=== PATIENT | female | born 1980 | race African-American/Black ===

== ENCOUNTER 2020-02-15 13:34 | Outpatient (REF) | payer MEDICARE, MEDICAID, SELFPAY ==
--- NOTE | 2020-02-15 13:39 | US_ITS ---
EXAMINATION: US VENOUS ULTRASOUND WITH DOPPLER LOWER EXTREMITY, RIGHT CLINICAL INFORMATION: Right lower extremity pain. Assess for occult DVT. COMPARISON: Bilateral leg venous ultrasound with Doppler. 03/09/2016, right lower extremity venous ultrasound with Doppler 10/04/2013 TECHNIQUE: Ultrasound of the deep veins is performed from the hip to the calf with compression sonography and color and pulse Doppler assessment. Spectral analysis with color-flow imaging is performed. [employer] notes technically challenging study secondary to patient body habitus. FINDINGS: There is normal venous compression and respiratory variation and augmented flow. The visualized common femoral vein, superficial femoral vein, profunda femoral vein, popliteal vein, and the trifurcation region shows no evidence of deep venous thrombosis. No popliteal fossa cyst. US/US venous duplex LE RT IMPRESSION: No DVT demonstrated in the right lower extremity.
== END 2020-02-15 13:35 | disposition home or self-care (01) ==
LOC: HO.HMGCX 13:34
PROVIDERS: PCP Internal Medicine; Visit Provider Internal Medicine
DX: M79.604 Pain in right leg (principal)
CPT/HCPCS: 93971

== ENCOUNTER 2020-05-06 16:37 | Outpatient (REF) | payer MEDICARE, MEDICAID, SELFPAY | END 2020-05-06 16:38 | disposition home or self-care (01) | LOC: HO.LNP 16:37 | PROVIDERS: Visit Provider Hospitalist | DX: J40 Bronchitis, not specified as acute or chronic (principal); Z20.822 Contact with and (suspected) exposure to COVID-19 | CPT/HCPCS: U0003; U0005 ==

== ENCOUNTER 2020-11-11 15:11 | Outpatient (REF) | payer MEDICARE, MEDICAID, SELFPAY ==
[2020-11-11 16:21] LABS: MANUAL DIFF FLAG NO
[2020-11-11 16:31] LABS: Basophils Percent Auto 0.4 % (0-2); Eosinophils Absolute Auto 0.3 X10*3/uL (0.0-0.4); Eosinophils Percent Auto 2.3 % (0-4); Hematocrit 39.2 % (37-47); Hemoglobin 12.1 g/dl (12.0-16.0); Imm Gran Abs Auto 0.05 X10*3/uL (0.00-0.03); Imm Gran Pct Auto 0.5 % (0.0-0.4); Lymphocytes Absolute Auto 1.9 X10*3/uL (1.2-4.9); Lymphocytes Percent Auto 18.1 % (20-40); Mean Corpuscular HGB Conc 30.9 g/dl (31.0-35.0); Mean Corpuscular Hemoglobin 24.4 pg (27.0-33.0); Mean Platelet Volume 11.7 fL (9.4-12.3); Monocytes Absolute Auto 0.6 X10*3/uL (0.1-1.2); Monocytes Percent Auto 5.1 % (2-11); Neutrophils Absolute Auto 7.9 X10*3/uL (2.0-8.3); Neutrophils Percent Auto 73.6 % (45-73); Platelet Count 228 X10*3/uL (160-400); Red Blood Count 4.96 X10*6/uL (4.20-5.50); Red Cell Distribution Width 15.7 % (11.0-16.0); White Blood Count 10.7 X10*3/uL (4.8-10.8)
[2020-11-11 16:56] LABS: Alanine Aminotransferase 12 U/L (0-31); Albumin Level 3.9 g/dL (3.5-5.0); Alkaline Phosphatase 89 U/L (39-117); Anion Gap 16 (12-20); Aspartate Amino Transferase 11 U/L (5-31); Bilirubin Total 0.6 mg/dL (0.0-1.0); Blood Urea Nitrogen 13 mg/dL (9-16); Calcium 8.8 mg/dL (8.4-10.2); Carbon Dioxide 23 mmol/L (22-29); Chloride 104 mmol/L (96-108); Estimated Glomerular Filt Rate > 60; Glucose Random 105 mg/dL (60-115); Potassium 4.2 mmol/L (3.3-5.1); Sodium 139 mmol/L (135-145); Total Protein 6.8 g/dL (6.5-8.0)
[2020-11-11 17:17] LABS: TSH reflex Free T4 1.18 uIU/mL (0.32-4.0)
== END 2020-11-11 15:12 | disposition home or self-care (01) ==
LOC: HO.HMGCLDS 15:11
PROVIDERS: PCP Internal Medicine; Visit Provider Nurse Practitioner Family
DX: M79.89 Other specified soft tissue disorders (principal)
CPT/HCPCS: 36415; 80053; 84443; 85025

== ENCOUNTER 2020-11-16 13:34 | Outpatient (REF) | payer MEDICARE, MEDICAID, SELFPAY ==
--- NOTE | ~2020-11-16 | US_ITS ---
EXAMINATION: ULTRASOUND EXTREMITY NONVASCULAR CLINICAL INFORMATION: Right lateral thigh swelling COMPARISON: None TECHNIQUE: Grayscale and color imaging of the soft tissues of the right lateral thigh using a curved transducer. Comparison imaging of the left leg was performed. FINDINGS: There are is edema of the superficial soft tissues bilaterally. No fluid collection is seen. US/US extremity nonvascular IMPRESSION: Edema. No fluid collection seen.
== END 2020-11-16 13:35 | disposition home or self-care (01) ==
LOC: HO.HMGCX 13:34
PROVIDERS: PCP Internal Medicine; Visit Provider Nurse Practitioner Family
DX: M79.89 Other specified soft tissue disorders (principal)
CPT/HCPCS: 76882

== ENCOUNTER 2021-07-31 14:33 | Outpatient (REF) | payer MEDICARE, MEDICAID, SELFPAY ==
--- NOTE | ~2021-07-31 | XR_ITS ---
EXAMINATION: XR CHEST CLINICAL INFORMATION: Shortness of breath COMPARISON: 09/23/2018 TECHNIQUE: 2 views of the chest were obtained. FINDINGS: Low lung volumes but no focal consolidation or mass. Normal pulmonary vascularity. No pleural effusion or pneumothorax. Normal heart size. No acute osseous abnormality. XR/XR chest 2V IMPRESSION: Low lung volumes but no acute pulmonary disease.
[2021-07-31 16:47] LABS: Anion Gap 13 (12-20); Blood Urea Nitrogen 13 mg/dL (9-16); Calcium 9.6 mg/dL (8.4-10.2); Carbon Dioxide 26 mmol/L (22-29); Chloride 104 mmol/L (96-108); Cholesterol 214 mg/dL; Estimated Glomerular Filt Rate > 60; Glucose Fasting 121 mg/dL (60-99); HDL Cholesterol 48 mg/dL; LDL Cholesterol Calculated 155 mg/dl; Potassium 4.2 mmol/L (3.3-5.1); Sodium 139 mmol/L (135-145); Triglycerides 58 mg/dL
== END 2021-07-31 14:34 | disposition home or self-care (01) ==
LOC: HO.HMGCX 14:33
PROVIDERS: Absent Provider Nurse Practitioner Family; PCP Internal Medicine; Visit Provider Internal Medicine
DX: Z13.1 Encounter for screening for diabetes mellitus (principal); Z13.220 Encounter for screening for lipoid disorders; R06.02 Shortness of breath; E78.00 Pure hypercholesterolemia, unspecified
CPT/HCPCS: 36415; 71046; 80048; 80061

== ENCOUNTER 2021-09-06 11:47 | Outpatient (REF) | payer MEDICARE, MEDICAID, SELFPAY ==
--- NOTE | ~2021-09-06 | XR_ITS ---
EXAMINATION: XR FEMUR, RIGHT CLINICAL INFORMATION: M79.651 - Pain in right thigh COMPARISON: None TECHNIQUE: The right femur is imaged in 4 views. FINDINGS: There is no fracture or destructive process. Normal bony mineralization. No periostitis. No patellar effusion. Right hip shows no definite narrowing and no subchondral sclerosis or erosive change. XR/XR femur RT 2V IMPRESSION: Unremarkable right femur.
== END 2021-09-06 11:48 | disposition home or self-care (01) ==
LOC: HO.HMGCX 11:47
PROVIDERS: PCP Internal Medicine; Visit Provider Internal Medicine
DX: M79.651 Pain in right thigh (principal)
CPT/HCPCS: 73552

== ENCOUNTER 2021-12-18 10:23 | Outpatient (RCR) | payer MEDICARE, MEDICAID, SELFPAY | END 2022-01-11 14:05 | disposition home or self-care (01) | LOC: HO.WCC 10:23 | PROVIDERS: PCP Internal Medicine; Visit Provider Physician Assistant | DX: L97.112 Non-pressure chronic ulcer of right thigh with fat layer exposed (principal); E66.9 Obesity, unspecified; I87.2 Venous insufficiency (chronic) (peripheral); Q82.0 Hereditary lymphedema | CPT/HCPCS: 11042; 99212 ==

== ENCOUNTER 2022-01-31 08:57 | Outpatient (RCR) | payer MEDICARE, MEDICAID, SELFPAY | END 2022-02-13 14:09 | disposition home or self-care (01) | LOC: HO.WCC 08:57 | PROVIDERS: Visit Provider Surgery | DX: Z09 Encounter for follow-up examination after completed treatment for conditions other than malignant neoplasm (principal); Q82.0 Hereditary lymphedema | CPT/HCPCS: 99213 ==

== ENCOUNTER 2022-03-16 14:54 | Inpatient (IN) | payer MEDICARE, MEDICAID, SELFPAY ==
--- NOTE | 2022-03-16 15:07 | ED_ITS ---
HPI - Skin/Abscess/Foreign Bdy General Chief complaint: Extremity Problem <Latonia Benedict CNP - Last Filed: 03/16/22 15:34> Stated complaint: R Thigh Pain <Latonia Benedict CNP - Last Filed: 03/16/22 15:34> Time Seen by Provider: 03/16/22 16:02 <Latonia Benedict CNP - Last Filed: 03/16/22 15:34> Source: patient <MARVIN Coppola - Last Filed: 03/16/22 17:17> Mode of arrival: ambulatory <MARVIN Coppola - Last Filed: 03/16/22 17:17> Limitations: no limitations <MARVIN Coppola - Last Filed: 03/16/22 17:17> History of Present Illness HPI narrative: This is a 41-year-old female history of morbid obesity, anxiety, depr ession, asthma, GERD, lymphedema, obstructive sleep apnea, peripheral vascular disease, pulmonary hypertension presenting to the emergency department complaints of redness, swelling and warmth to the right lateral thigh x2 days worsening.? Patient reports that the affected area is very warm and tender to the touch.? Patient tells me she has lymphedema and has had lymphedema for the past year to the right lower extremity.? Patient reports subjective fevers and chills at home.? Also reports some dizziness described as spinning, patient tells me she does have a history of vertigo.? She tells me she is no longer experiencing dizziness however she was experiencing this symptom yesterday.? At this time her only complaint is redness and swelling to the right lateral thigh.? Denies chest pain, shortness of breath, nausea, vomiting, headache, vision changes, weakness, dizziness, abdominal pain. <MARVIN Coppola Last Filed: 03/16/22 17:17> Related Data Home medications: Home Medications Medication Instructions Recorded Confirmed alprazolam 0.5 mg tablet mg PO 02/15/20 01/23/22 fluticasone propionate 50 intranasal 02/15/20 01/23/22 mcg/actuation nasal spray,suspension medroxyprogesterone 10 mg tablet mg PO 11/10/20 01/23/22 Previous Rx's Medication Instructions Recorded omeprazole 20 mg capsule,delayed 20 mg PO DAILY #90 caps 05/27/20 release cholecalciferol (vitamin D3) 1,250 1,250 mcg PO QWEEK #12 caps 11/14/20 mcg (50,000 unit) capsule furosemide 20 mg tablet (Lasix) 20 mg PO QAM 30 days #30 tabs 07/25/21 epinephrine 0.3 mg/0.3 mL 0.3 mg (0.3 mL) IM Q4H PRN 08/23/21 injection, auto-injector (EpiPen anaphylaxis #2 ea 2-Jeremy) sertraline 50 mg tablet 50 mg PO DAILY #90 tabs 09/11/21 fluticasone furoate 200 1 inh inhalation DAILY 90 days #3 12/12/21 mcg-vilanterol 25 mcg/dose ea inhalation powder prednisone 10 mg tablet See Rx Instructions PO DAILY #20 01/26/22 tabs albuterol sulfate 90 mcg/actuation 2 puff inhalation QID 90 days #8.5 03/03/22 aerosol inhaler (Ventolin HFA) grams betamethasone, augmented 0.05 % 1 appl topical BID PRN skin 03/03/22 topical ointment (Diprolene irritation 14 days #45 grams (augmented)) meclizine 25 mg tablet 25 mg PO DAILY PRN for dizziness 03/03/22 #14 tabs <Latonia Benedict, [employer]MING AND ASSEMBLING SUPERVISOR - Last Filed: 03/16/22 15:34> Allergies/Adverse reactions: Allergies Allergy/AdvReac Type Severity Reaction Status Date / Time bacitracin [Bacitracin] Allergy Unknown UNKNOWN Verified 03/16/22 15:18 budesonide [Symbicort] Allergy Unknown Unknown Verified 03/16/22 15:18 cephalexin [Keflex] Allergy Unknown Unknown Verified 03/16/22 15:18 egg yolk Allergy Unknown UNKNOWN Verified 03/16/22 15:18 Egg/Pro Allergy Unknown Unknown Verified 03/16/22 15:18 formoterol [Symbicort] Allergy Unknown Unknown Verified 03/16/22 15:18 Iodinated Contrast Media Allergy Unknown BY SKIN Verified 03/16/22 15:18 [IV Dye, Iodine Containing] TEST monosodium glutamate Allergy Unknown PER MD Verified 03/16/22 15:18 peanut [Peanut] Allergy Unknown UNKNOWN Verified 03/16/22 15:18 peanuts Allergy Unknown Unknown Verified 03/16/22 15:18 shellfish Allergy Unknown unknown Verified 03/16/22 15:18 From Reglan Allergy Unknown UNKNOWN Uncoded 03/16/22 13:34 <Latonia Benedict CNP - Last Filed: 03/16/22 15:34> Review of Systems Review of Systems: Constitutional : No Weight loss, No Fever, No Chills, No Fatigue, No Malaise ENT/Mouth : No sore throat, No Rhinorrhea Eyes: No Eye Pain, No Swelling, No Redness Cardiovascular : No Chest Pain, No SOB, No Dyspnea on Exertion, No Orthopnea, No Edema, No Palpitations Respiratory : No Cough, No Sputum, No Wheezing Gastrointestinal : No Nausea, No Vomiting, No Diarrhea, No Constipation, No abdominal Pain, No Hematochezia, No Melena Genitourinary : No Dysuria, No Urinary Frequency, No Hematuria, Musculoskeletal : No joint pain, No Myalgias, No Joint Swelling Skin : No Skin Lesions, No rash, + cellulitis to R. thigh Neuro : No Weakness, No Numbness, No Dizziness, No Headache Psych : No Anxiety/Panic, No Depression <MARVIN Coppola - Last Filed: 03/16/22 17:17> Yes all other systems are reviewed and are negative <MARVIN Coppola - Last Filed: 03/16/22 17:17> [facility] Past Medical History Attestation statement: The following information was validated with the patient. <MARVIN Coppola - Last Filed: 03/16/22 17:17> Source: old records reviewed and nursing notes reviewed <MARVIN Coppola - Last Filed: 03/16/22 17:17> Medical History: Medical History Allergic rhinitis Anxiety and depression Asthma COVID-19 virus infection Eczematous dermatitis Foot fracture, right GERD (gastroesophageal reflux disease) Hypercholesterolemia Lymphedema Morbid obesity with BMI of 40.0-44.9, adult Obesity Obstructive sleep apnea Peripheral vascular disease Pulmonary hypertension Right leg pain Screening for breast cancer Screening for colon cancer Screening for diabetes mellitus Screening for hyperlipidemia Shortness of breath on exertion Vitamin D deficiency <Latonia Benedict CNP - Last Filed: 03/16/22 15:34> Surgical History: Surgical History H/O right breast biopsy <Latonia Consuelo Benedict CNP - Last Filed: 03/16/22 15:34> Family History Family History: Family History Father Lymphoma CVD (cardiovascular disease) Mother CVD (cardiovascular disease) Hypertension Colon cancer Glaucoma Brother Leukemia Paternal Aunt Breast cancer Paternal Uncle Pancreatic cancer Other Mental health disorder <Latonia Benedict CNP - Last Filed: 03/16/22 15:34> Social History Social History: Social History Housing: Apartment Patient Tobacco Use Status: Never used Tobacco e-Cigarette/Vaping Use: Never Used Second Hand Smoke Exposure: No Advance Directives: No Advance Directives Information Provided: No service: No Current occupational status: employed Cognitive needs: No Hearing needs: No Vision needs: Yes <Latonia Consuelomani Benedict CNP - Last Filed: 03/16/22 15:34> Physical Exam Vital Signs: Vital Signs: Last Vital Signs Temp 98.6 F 03/16/22 15:12 Pulse 101 H 03/16/22 15:12 Resp 18 03/16/22 15:12 BP 134/54 L 03/16/22 15:12 Pulse Ox 98 03/16/22 15:12 O2 Del Method 03/16/22 15:12 BMI result Body Mass Index 70.7 <Latonialisandro Cordero CHANEL Benedict - Last Filed: 03/16/22 15:34> Vital Signs: Last Vital Signs Temp 98.6 F 03/16/22 15:12 Pulse 101 H 03/16/22 15:12 Resp 18 03/16/22 15:12 BP 134/54 L 03/16/22 15:12 Pulse Ox 98 03/16/22 15:12 O2 Del Method 03/16/22 15:12 BMI result Body Mass Index 70.7 vss <MARVIN Coppola - Last Filed: 03/16/22 17:17> Appearance: Alert.? Oriented X3.? No acute distress.? Head:? Normocephalic, atraumatic, no step-offs or deformities Eyes: Pupils equal, round and reactive to light.? ENT: Pharynx normal.? Neck: Normal inspection.? Neck supple.? CVS: Normal heart rate and rhythm.? Pulses normal.? Respiratory: No respiratory distress.? Breath sounds normal.? Abdomen: Soft and nontender.? Skin: Skin warm and dry.? Normal skin color.? Normal skin turgor.?+ large area cellulitis 10 cm x 12 cm to the right lateral thigh with overlying warmth Extremities: No lower extremity edema.? No calf ttp.? 5/5 strength to bilateral upper and lower extremities Back:? No midline tenderness, no C-spine tenderness, full range of motion, no CVA tenderness bilaterally Neuro: Oriented X 3.? No motor deficit.? No sensory deficit. CN 2-12 intact <MARVIN Coppola - Last Filed: 03/16/22 17:17> Course Course Course Narrative: This is an RME: Additional HPI, ROS, PE not included below will be deferred to primary provider. Patient is a 41-year-old female who presents to the emergency department after referral from urgent care. Patient was evaluated there for an extensive cellulitis of the right leg, referred to ER for further evaluation and treatment. Associated with pain, fever t. max 101, chills. Last night had dyspnea on exertion at home, feeling very dizzy. Reports history of lymphedema to the right lower extremity for which she is followed by her primary care provider for this but has never had the redness associated with it. Unable to visualize during RME due to clothing, report from urgent care provider indicating extensive erythema Plan: Labs, lactic acid, blood cultures. 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 Patient also noted to have a urinary tract infection.? She is being covered with broad-spectrum antibiotics Zosyn.? Will obtain ESR, CRP, lactic acid pending.? At this time infection suspected.? Septic focus exam was done at the bedside. <MARVIN Coppola - Last Filed: 03/16/22 17:17> Time: 16:45 <MARVIN Coppola - Last Filed: 03/16/22 17:17> Reevaluation #2: Patient will be admitted for UTI and cellulitis. <MARVIN Coppola - Last Filed: 03/16/22 17:17> Time: 17:14 <Sagrario Amato PA - Last Filed: 03/16/22 17:17> Medications Administered Generic Name Dose Route Start Last Admin Trade Name Freq PRN Reason Stop Dose Admin Sodium Chloride 1,000 mls @ 999 mls/hr 03/16/22 17:15 03/16/22 17:06 Ns IV 03/16/22 18:15 999 mls/hr .Q1H1M J LUIS Administration Discontinued Medications Generic Name Dose Route Start Last Admin Trade Name Freq PRN Reason Stop Dose Admin Piperacillin Sod/Tazobactam 50 mls @ 100 mls/hr 03/16/22 16:18 03/16/22 16:57 Sod 3.375 gm/ Sodium Chloride IV 03/16/22 16:47 100 mls/hr ONCE ONE Administration <Latonia Benedict CNP - Last Filed: 03/16/22 15:34> Medications Administered Generic Name Dose Route Start Last Admin Trade Name Freq PRN Reason Stop Dose Admin Sodium Chloride 1,000 mls @ 999 mls/hr 03/16/22 17:15 03/16/22 17:06 Ns IV 03/16/22 18:15 999 mls/hr .Q1H1M J LUIS Administration Discontinued Medications Generic Name Dose Route Start Last Admin Trade Name Freq PRN Reason Stop Dose Admin Piperacillin Sod/Tazobactam 50 mls @ 100 mls/hr 03/16/22 16:18 03/16/22 16:57 Sod 3.375 gm/ Sodium Chloride IV 03/16/22 16:47 100 mls/hr ONCE ONE Administration <Sagrario Amato PA - Last Filed: 03/16/22 17:17> Medical Decision Making Medical Decision Making [facility] Narrative: 1605 41-year-old female presents with redness, warmth to the right lateral thigh x2 days worsening Physical examination significant for 41-year-old morbidly obese female lying comfortably on the stretcher with significant cellulitis to the right lateral thigh. Physical examination consistent with cellulitis unlikely necrotizing infection, erysipelas, septic joint.? I do not suspect venous occlusion or arterial o cclusion to lower extremities. Plan at this time labs, blood cultures, lactic acid will give Zosyn for broad coverage. <MARVIN Coppola - Last Filed: 03/16/22 17:17> Lab Data Result Diagrams: : 03/16/22 15:44 03/16/22 15:44 <Latonia Benedict CNP - Last Filed: 03/16/22 15:34> Labs: Lab Results 03/16/22 03/16/22 03/16/22 Range/Units 15:43 15:43 15:44 WBC 24.6 H (4.8-10.8) X10*3/uL RBC 5.00 (4.20-5.50) X10*6/uL Hgb 12.4 (12.0-16.0) g/dl Hct 39.0 (37.0-47.0) % MCV 78.0 L (80.0-98.0) fL MCH 24.8 L (27.0-33.0) pg MCHC 31.8 (31.0-35.0) g/dl RDW 15.6 (11.0-16.0) % Plt Count 194 (160-400) X10*3/uL MPV 11.5 (9.4-12.3) fL Immature Gran % (Auto) 0.7 H (0.0-0.4) % Neut % (Auto) 93.0 H (45-73) % Lymph % (Auto) 3.9 L (20-40) % Kimble % (Auto) 2.1 (2-11) % Eos % (Auto) 0.1 (0-4) % Baso % (Auto) 0.2 (0-2) % Lymph # (Auto) 1.0 L (1.2-4.9) X10*3/uL Kimble # (Auto) 0.5 (0.1-1.2) X10*3/uL Eos # (Auto) 0.0 (0.0-0.4) X10*3/uL Baso # (Auto) 0.1 (0.0-0.2) X10*3/uL Abs Immat Gran (auto) 0.16 H (0.00-0.03) X10*3/uL Absolute Neuts (auto) 22.9 H (2.0-8.3) x10*3/uL Absolute Nucleated RBC 0.000 (0.0-0.012) X10*3/uL Nucleated RBC % (auto) 0.0 (0.0-0.2) /100WBC Smear Tech's Comments VERIFIED Sodium (135-145) mmol/L Potassium (3.3-5.1) mmol/L Chloride (96-108) mmol/L Carbon Dioxide (22-29) mmol/L Anion Gap (12-20) BUN (9-16) mg/dL Creatinine (0.5-1.4) mg/dL Estim Creat Clear Calc Estimated GFR Random Glucose (60-115) mg/dL Lactic Acid (0.5-2.0) mmol/L Calcium (8.4-10.2) mg/dL Total Bilirubin (0.0-1.0) mg/dL AST (5-31) U/L ALT (0-31) U/L Alkaline Phosphatase (39-117) U/L C-Reactive Protein (< or = 0.50) mg/dL B-Natriuretic Peptide 34 (<100) pg/mL Total Protein (6.5-8.0) g/dL Albumin (3.5-5.0) g/dL Urine Color Urine Appearance Urine pH (5.0-9.0) Ur Specific [place] (1.005-1.025) Urine Protein (Neg-Trace) mg/dL Urine Glucose (UA) (Negative) mg/dL Urine Ketones (Negative) mg/dL Urine Blood (Negative) Urine Nitrite (Negative) Ur Leukocyte Esterase (Negative) Urine RBC (0-2) /HPF Urine WBC (0-5) /HPF Ur Squamous Epith Cells (0-2) /HPF Urine Bacteria (None Seen) Hyaline Casts (0-2) /LPF Urine Test (NEGATIVE) COVID-19 (CATHY) (Negative) COVID-19 Clin Com Influenza Type A (INESSA) Negative (Negative) Influenza Type B (INESSA) Negative (Negative) Influenza A & B Note See Note 03/16/22 03/16/22 03/16/22 Range/Units 15:44 15:44 15:44 WBC (4.8-10.8) X10*3/uL RBC (4.20-5.50) X10*6/uL Hgb (12.0-16.0) g/dl Hct (37.0-47.0) % MCV (80.0-98.0) fL MCH (27.0-33.0) pg MCHC (31.0-35.0) g/dl RDW (11.0-16.0) % Plt Count (160-400) X10*3/uL MPV (9.4-12.3) fL Immature Gran % (Auto) (0.0-0.4) % Neut % (Auto) (45-73) % Lymph % (Auto) (20-40) % Kimble % (Auto) (2-11) % Eos % (Auto) (0-4) % Baso % (Auto) (0-2) % Lymph # (Auto) (1.2-4.9) X10*3/uL Kimble # (Auto) (0.1-1.2) X10*3/uL Eos # (Auto) (0.0-0.4) X10*3/uL Baso # (Auto) (0.0-0.2) X10*3/uL Abs Immat Gran (auto) (0.00-0.03) X10*3/uL Absolute Neuts (auto) (2.0-8.3) x10*3/uL Absolute Nucleated RBC (0.0-0.012) X10*3/uL Nucleated RBC % (auto) (0.0-0.2) /100WBC Smear Tech's Comments Sodium 137 (135-145) mmol/L Potassium 3.3 D (3.3-5.1) mmol/L Chloride 100 (96-108) mmol/L Carbon Dioxide 28 (22-29) mmol/L Anion Gap 12 (12-20) BUN 15 (9-16) mg/dL Creatinine 0.84 (0.5-1.4) mg/dL Estim Creat Clear Calc 121.9 Estimated GFR > 60 Random Glucose 107 (60-115) mg/dL Lactic Acid 1.3 (0.5-2.0) mmol/L Calcium 8.7 D (8.4-10.2) mg/dL Total Bilirubin 1.1 H (0.0-1.0) mg/dL AST 11 (5-31) U/L ALT 12 (0-31) U/L Alkaline Phosphatase 85 (39-117) U/L C-Reactive Protein 23.73 H (< or = 0.50) mg/dL B-Natriuretic Peptide (<100) pg/mL Total Protein 6.5 (6.5-8.0) g/dL Albumin 3.8 (3.5-5.0) g/dL Urine Color Urine Appearance Urine pH (5.0-9.0) Ur Specific [place] (1.005-1.025) Urine Protein (Neg-Trace) mg/dL Urine Glucose (UA) (Negative) mg/dL Urine Ketones (Negative) mg/dL Urine Blood (Negative) Urine Nitrite (Negative) Ur Leukocyte Esterase (Negative) Urine RBC (0-2) /HPF Urine WBC (0-5) /HPF Ur Squamous Epith Cells (0-2) /HPF Urine Bacteria (None Seen) Hyaline Casts (0-2) /LPF Urine Test (NEGATIVE) COVID-19 (CATHY) Negative (Negative) COVID-19 Clin Com See Note Influenza Type A (INESSA) (Negative) Influenza Type B (INESSA) (Negative) Influenza A & B Note 03/16/22 03/16/22 Range/Units 16:13 16:13 WBC (4.8-10.8) X10*3/uL RBC (4.20-5.50) X10*6/uL Hgb (12.0-16.0) g/dl Hct (37.0-47.0) % MCV (80.0-98.0) fL MCH (27.0-33.0) pg MCHC (31.0-35.0) g/dl RDW (11.0-16.0) % Plt Count (160-400) X10*3/uL MPV (9.4-12.3) fL Immature Gran % (Auto) (0.0-0.4) % Neut % (Auto) (45-73) % Lymph % (Auto) (20-40) % Kimble % (Auto) (2-11) % Eos % (Auto) (0-4) % Baso % (Auto) (0-2) % Lymph # (Auto) (1.2-4.9) X10*3/uL Kimble # (Auto) (0.1-1.2) X10*3/uL Eos # (Auto) (0.0-0.4) X10*3/uL Baso # (Auto) (0.0-0.2) X10*3/uL Abs Immat Gran (auto) (0.00-0.03) X10*3/uL Absolute Neuts (auto) (2.0-8.3) x10*3/uL Absolute Nucleated RBC (0.0-0.012) X10*3/uL Nucleated RBC % (auto) (0.0-0.2) /100WBC Smear Tech's Comments Sodium (135-145) mmol/L Potassium (3.3-5.1) mmol/L Chloride (96-108) mmol/L Carbon Dioxide (22-29) mmol/L Anion Gap (12-20) BUN (9-16) mg/dL Creatinine (0.5-1.4) mg/dL Estim Creat Clear Calc Estimated GFR Random Glucose (60-115) mg/dL Lactic Acid (0.5-2.0) mmol/L Calcium (8.4-10.2) mg/dL Total Bilirubin (0.0-1.0) mg/dL AST (5-31) U/L ALT (0-31) U/L Alkaline Phosphatase (39-117) U/L C-Reactive Protein (< or = 0.50) mg/dL B-Natriuretic Peptide (<100) pg/mL Total Protein (6.5-8.0) g/dL Albumin (3.5-5.0) g/dL Urine Color Dark Yellow Urine Appearance Cloudy Urine pH 5.0 (5.0-9.0) Ur Specific [place] >= 1.030 H (1.005-1.025) Urine Protein 30 (1+) H (Neg-Trace) mg/dL Urine Glucose (UA) Negative (Negative) mg/dL Urine Ketones Trace (Negative) mg/dL Urine Blood Moderate (2+) H (Negative) Urine Nitrite Negative (Negative) Ur Leukocyte Esterase Moderate (2+) H (Negative) Urine RBC >20 H (0-2) /HPF Urine WBC >50 H (0-5) /HPF Ur Squamous Epith Cells 11-20 (0-2) /HPF Urine Bacteria 4+ (None Seen) Hyaline Casts 0-2 (0-2) /LPF Urine Test NEGATIVE (NEGATIVE) COVID-19 (CATHY) (Negative) COVID-19 Clin Com Influenza Type A (INESSA) (Negative) Influenza Type B (INESSA) (Negative) Influenza A & B Note <Latonialisandro Benedict, FORMING AND ASSEMBLING SUPERVISOR - Last Filed: 03/16/22 15:34> Lab Results 03/16/22 03/16/22 03/16/22 Range/Units 15:43 15:43 15:44 WBC 24.6 H (4.8-10.8) X10*3/uL RBC 5.00 (4.20-5.50) X10*6/uL Hgb 12.4 (12.0-16.0) g/dl Hct 39.0 (37.0-47.0) % MCV 78.0 L (80.0-98.0) fL MCH 24.8 L (27.0-33.0) pg MCHC 31.8 (31.0-35.0) g/dl RDW 15.6 (11.0-16.0) % Plt Count 194 (160-400) X10*3/uL MPV 11.5 (9.4-12.3) fL Immature Gran % (Auto) 0.7 H (0.0-0.4) % Neut % (Auto) 93.0 H (45-73) % Lymph % (Auto) 3.9 L (20-40) % Kimble % (Auto) 2.1 (2-11) % Eos % (Auto) 0.1 (0-4) % Baso % (Auto) 0.2 (0-2) % Lymph # (Auto) 1.0 L (1.2-4.9) X10*3/uL Kimble # (Auto) 0.5 (0.1-1.2) X10*3/uL Eos # (Auto) 0.0 (0.0-0.4) X10*3/uL Baso # (Auto) 0.1 (0.0-0.2) X10*3/uL Abs Immat Gran (auto) 0.16 H (0.00-0.03) X10*3/uL Absolute Neuts (auto) 22.9 H (2.0-8.3) x10*3/uL Absolute Nucleated RBC 0.000 (0.0-0.012) X10*3/uL Nucleated RBC % (auto) 0.0 (0.0-0.2) /100WBC Smear Tech's Comments VERIFIED Sodium (135-145) mmol/L Potassium (3.3-5.1) mmol/L Chloride (96-108) mmol/L Carbon Dioxide (22-29) mmol/L Anion Gap (12-20) BUN (9-16) mg/dL Creatinine (0.5-1.4) mg/dL Estim Creat Clear Calc Estimated GFR Random Glucose (60-115) mg/dL Lactic Acid (0.5-2.0) mmol/L Calcium (8.4-10.2) mg/dL Total Bilirubin (0.0-1.0) mg/dL AST (5-31) U/L ALT (0-31) U/L Alkaline Phosphatase (39-117) U/L C-Reactive Protein (< or = 0.50) mg/dL B-Natriuretic Peptide 34 (<100) pg/mL Total Protein (6.5-8.0) g/dL Albumin (3.5-5.0) g/dL Urine Color Urine Appearance Urine pH (5.0-9.0) Ur Specific [place] (1.005-1.025) Urine Protein (Neg-Trace) mg/dL Urine Glucose (UA) (Negative) mg/dL Urine Ketones (Negative) mg/dL Urine Blood (Negative) Urine Nitrite (Negative) Ur Leukocyte Esterase (Negative) Urine RBC (0-2) /HPF Urine WBC (0-5) /HPF Ur Squamous Epith Cells (0-2) /HPF Urine Bacteria (None Seen) Hyaline Casts (0-2) /LPF Urine Test (NEGATIVE) COVID-19 (CATHY) (Negative) COVID-19 Clin Com Influenza Type A (INESSA) Negative (Negative) Influenza Type B (INESSA) Negative (Negative) Influenza A & B Note See Note 03/16/22 03/16/22 03/16/22 Range/Units 15:44 15:44 15:44 WBC (4.8-10.8) X10*3/uL RBC (4.20-5.50) X10*6/uL Hgb (12.0-16.0) g/dl Hct (37.0-47.0) % MCV (80.0-98.0) fL MCH (27.0-33.0) pg MCHC (31.0-35.0) g/dl RDW (11.0-16.0) % Plt Count (160-400) X10*3/uL MPV (9.4-12.3) fL Immature Gran % (Auto) (0.0-0.4) % Neut % (Auto) (45-73) % Lymph % (Auto) (20-40) % Kimble % (Auto) (2-11) % Eos % (Auto) (0-4) % Baso % (Auto) (0-2) % Lymph # (Auto) (1.2-4.9) X10*3/uL Kimble # (Auto) (0.1-1.2) X10*3/uL Eos # (Auto) (0.0-0.4) X10*3/uL Baso # (Auto) (0.0-0.2) X10*3/uL Abs Immat Gran (auto) (0.00-0.03) X10*3/uL Absolute Neuts (auto) (2.0-8.3) x10*3/uL Absolute Nucleated RBC (0.0-0.012) X10*3/uL Nucleated RBC % (auto) (0.0-0.2) /100WBC Smear Tech's Comments Sodium 137 (135-145) mmol/L Potassium 3.3 D (3.3-5.1) mmol/L Chloride 100 (96-108) mmol/L Carbon Dioxide 28 (22-29) mmol/L Anion Gap 12 (12-20) BUN 15 (9-16) mg/dL Creatinine 0.84 (0.5-1.4) mg/dL Estim Creat Clear Calc 121.9 Estimated GFR > 60 Random Glucose 107 (60-115) mg/dL Lactic Acid 1.3 (0.5-2.0) mmol/L Calcium 8.7 D (8.4-10.2) mg/dL Total Bilirubin 1.1 H (0.0-1.0) mg/dL AST 11 (5-31) U/L ALT 12 (0-31) U/L Alkaline Phosphatase 85 (39-117) U/L C-Reactive Protein 23.73 H (< or = 0.50) mg/dL B-Natriuretic Peptide (<100) pg/mL Total Protein 6.5 (6.5-8.0) g/dL Albumin 3.8 (3.5-5.0) g/dL Urine Color Urine Appearance Urine pH (5.0-9.0) Ur Specific [place] (1.005-1.025) Urine Protein (Neg-Trace) mg/dL Urine Glucose (UA) (Negative) mg/dL Urine Ketones (Negative) mg/dL Urine Blood (Negative) Urine Nitrite (Negative) Ur Leukocyte Esterase (Negative) Urine RBC (0-2) /HPF Urine WBC (0-5) /HPF Ur Squamous Epith Cells (0-2) /HPF Urine Bacteria (None Seen) Hyaline Casts (0-2) /LPF Urine Test (NEGATIVE) COVID-19 (CATHY) Negative (Negative) COVID-19 Clin Com See Note Influenza Type A (INESSA) (Negative) Influenza Type B (INESSA) (Negative) Influenza A & B Note 03/16/22 03/16/22 Range/Units 16:13 16:13 WBC (4.8-10.8) X10*3/uL RBC (4.20-5.50) X10*6/uL Hgb (12.0-16.0) g/dl Hct (37.0-47.0) % MCV (80.0-98.0) fL MCH (27.0-33.0) pg MCHC (31.0-35.0) g/dl RDW (11.0-16.0) % Plt Count (160-400) X10*3/uL MPV (9.4-12.3) fL Immature Gran % (Auto) (0.0-0.4) % Neut % (Auto) (45-73) % Lymph % (Auto) (20-40) % [place] % (Auto) (2-11) % Eos % (Auto) (0-4) % Baso % (Auto) (0-2) % Lymph # (Auto) (1.2-4.9) X10*3/uL [place] # (Auto) (0.1-1.2) X10*3/uL Eos # (Auto) (0.0-0.4) X10*3/uL Baso # (Auto) (0.0-0.2) X10*3/uL Abs Immat Gran (auto) (0.00-0.03) X10*3/uL Absolute Neuts (auto) (2.0-8.3) x10*3/uL Absolute Nucleated RBC (0.0-0.012) X10*3/uL Nucleated RBC % (auto) (0.0-0.2) /100WBC Smear Tech's Comments Sodium (135-145) mmol/L Potassium (3.3-5.1) mmol/L Chloride (96-108) mmol/L Carbon Dioxide (22-29) mmol/L Anion Gap (12-20) BUN (9-16) mg/dL Creatinine (0.5-1.4) mg/dL Estim Creat Clear Calc Estimated GFR Random Glucose (60-115) mg/dL Lactic Acid (0.5-2.0) mmol/L Calcium (8.4-10.2) mg/dL Total Bilirubin (0.0-1.0) mg/dL AST (5-31) U/L ALT (0-31) U/L Alkaline Phosphatase (39-117) U/L C-Reactive Protein (< or = 0.50) mg/dL B-Natriuretic Peptide (<100) pg/mL Total Protein (6.5-8.0) g/dL Albumin (3.5-5.0) g/dL Urine Color Dark Yellow Urine Appearance Cloudy Urine pH 5.0 (5.0-9.0) Ur Specific [place] >= 1.030 H (1.005-1.025) Urine Protein 30 (1+) H (Neg-Trace) mg/dL Urine Glucose (UA) Negative (Negative) mg/dL Urine Ketones Trace (Negative) mg/dL Urine Blood Moderate (2+) H (Negative) Urine Nitrite Negative (Negative) Ur Leukocyte Esterase Moderate (2+) H (Negative) Urine RBC >20 H (0-2) /HPF Urine WBC >50 H (0-5) /HPF Ur Squamous Epith Cells 11-20 (0-2) /HPF Urine Bacteria 4+ (None Seen) Hyaline Casts 0-2 (0-2) /LPF Urine Test NEGATIVE (NEGATIVE) COVID-19 (CATHY) (Negative) COVID-19 Clin Com Influenza Type A (INESSA) (Negative) Influenza Type B (INESSA) (Negative) Influenza A & B Note <MARVIN Coppola - Last Filed: 03/16/22 17:17> Critical Care Time Critical Care Time Critical Care Time: No <MARVIN Coppola - Last Filed: 03/16/22 17:17> Discharge Plan Discharge Clinical Impression: Cellulitis, UTI (urinary tract infection) <Latonia Benedict CNP - Last Filed: 03/16/22 15:34> Patient Disposition: Still a Patient <Latonia Benedict CNP - Last Filed: 03/16/22 15:34> Prescriptions: No Action omeprazole 20 mg capsule,delayed release(DR/EC) 20 mg PO DAILY Qty: 90 2RF cholecalciferol (vitamin D3) 1,250 mcg (50,000 unit) capsule 1,250 mcg PO QWEEK Qty: 12 2RF furosemide [Lasix] 20 mg tablet 20 mg PO QAM 30 Days Qty: 30 0RF sertraline 50 mg tablet 50 mg PO DAILY Qty: 90 2RF prednisone 10 mg tablet See Rx Instructions PO DAILY Qty: 20 0RF Rx Instructions: 4 tabs QD x 2 days then 3 tabs QD x 2 days then 2 tabs Qd x 2 days then 1 tab QD x 2 days PO daily; meclizine 25 mg tablet 25 mg PO DAILY PRN (Reason: for dizziness) Qty: 14 11RF albuterol sulfate [Ventolin HFA] 90 mcg/actuation HFA aerosol inhaler 2 puff inhalation QID 90 Days Qty: 8.5 0RF betamethasone, augmented [Diprolene (augmented)] 0.05 % ointment 1 appl topical BID PRN (Reason: skin irritation) 14 Days Qty: 45 0RF alprazolam 0.5 mg tablet PO fluticasone propionate 50 mcg/actuation spray,suspension intranasal medroxyprogesterone 10 mg tablet PO fluticasone furoate-vilanterol 200-25 mcg/dose blister with device 1 inh inhalation DAILY 90 Days Qty: 3 3RF epinephrine [EpiPen 2-Jeremy] 0.3 mg/0.3 mL auto-injector 0.3 mg IM Q4H PRN (Reason: anaphylaxis) Qty: 2 0RF <Latonia Benedict, [employer]ING [employer]SEM[employer]ING [employer]PERVISOR - Last Filed: 03/16/22 15:34>
[2022-03-16 15:12] VITALS: BP 134/54; PULSE 101; RESP 18; TEMP 37; O2SAT 98; BMI 70.7
[2022-03-16 15:54] LABS: Basophils Absolute Auto 0.1 X10*3/uL (0.0-0.2); Basophils Percent Auto 0.2 % (0-2); Eosinophils Percent Auto 0.1 % (0-4); Hemoglobin 12.4 g/dl (12.0-16.0); Imm Gran Abs Auto 0.16 X10*3/uL (0.00-0.03); Imm Gran Pct Auto 0.7 % (0.0-0.4); Lymphocytes Percent Auto 3.9 % (20-40); MANUAL DIFF FLAG SCAN; Mean Corpuscular HGB Conc 31.8 g/dl (31.0-35.0); Mean Corpuscular Hemoglobin 24.8 pg (27.0-33.0); Mean Platelet Volume 11.5 fL (9.4-12.3); Monocytes Absolute Auto 0.5 X10*3/uL (0.1-1.2); Monocytes Percent Auto 2.1 % (2-11); Neutrophils Absolute Auto 22.9 x10*3/uL (2.0-8.3); Platelet Count 194 X10*3/uL (160-400); Red Cell Distribution Width 15.6 % (11.0-16.0); SCAN SMEAR FLAG 1; White Blood Count 24.6 X10*3/uL (4.8-10.8)
[2022-03-16 16:09] LABS: Lactic Acid 1.3 mmol/L (0.5-2.0)
[2022-03-16 16:12] LABS: COVID-19 Test Negative (Negative); IDNOW Serial# BCCEAD1C
[2022-03-16 16:13] LABS: Alanine Aminotransferase 12 U/L (0-31); Albumin Level 3.8 g/dL (3.5-5.0); Alkaline Phosphatase 85 U/L (39-117); Anion Gap 12 (12-20); Aspartate Amino Transferase 11 U/L (5-31); Bilirubin Total 1.1 mg/dL (0.0-1.0); Blood Urea Nitrogen 15 mg/dL (9-16); Calcium 8.7 mg/dL (8.4-10.2); Carbon Dioxide 28 mmol/L (22-29); Chloride 100 mmol/L (96-108); Creatinine Clr Calc Pharmacy 121.9; Estimated Glomerular Filt Rate > 60; Glucose Random 107 mg/dL (60-115); Potassium 3.3 mmol/L (3.3-5.1); Sodium 137 mmol/L (135-145); Total Protein 6.5 g/dL (6.5-8.0)
[2022-03-16 16:14] LABS: IDNOW Serial# 9DB6401D; Influenza A Negative (Negative); Influenza B2 Negative (Negative)
--- NOTE | 2022-03-16 16:15 | ED_ITS ---
HPI - Extremity Problem General Chief complaint: Extremity Problem Stated complaint: R Thigh Pain Time Seen by Provider: 03/16/22 16:02 Source: patient Mode of arrival: ambulatory Limitations: no limitations History of Present Illness HPI Narrative: This is a 41-year-old female history of morbid obesity, anxiety, depression, asthma, GERD, lymphedema, obstructive sleep apnea, peripheral vascular disease, pulmonary hypertension presenting to the emergency department complaints of redness, swelling and warmth to the right lateral thigh x2 days worsening. Patient reports that the affected area is very warm and tender to the touch. Patient tells me she has lymphedema and has had lymphedema for the past year to the right lower extremity. Patient reports subjective fevers and chills at home. Also reports some dizziness described as spinning, patient tells me she does have a history of vertigo. She tells me she is no longer experiencing dizziness however she was experiencing this symptom yesterday. At this time her only complaint is redness and swelling to the right lateral thigh. Denies chest pain, shortness of breath, nausea, vomiting, headache, vision changes, weakness, dizziness, abdominal pain. Related Data Home Medications Medication Instructions Recorded Confirmed alprazolam 0.5 mg tablet mg PO 02/15/20 01/23/22 fluticasone propionate 50 intranasal 02/15/20 01/23/22 mcg/actuation nasal spray,suspension medroxyprogesterone 10 mg tablet mg PO 11/10/20 01/23/22 Previous Rx's Medication Instructions Recorded omeprazole 20 mg capsule,delayed 20 mg PO DAILY #90 caps 05/27/20 release cholecalciferol (vitamin D3) 1,250 1,250 mcg PO QWEEK #12 caps 11/14/20 mcg (50,000 unit) capsule furosemide 20 mg tablet (Lasix) 20 mg PO QAM 30 days #30 tabs 07/25/21 epinephrine 0.3 mg/0.3 mL 0.3 mg (0.3 mL) IM Q4H PRN 08/23/21 injection, auto-injector (EpiPen anaphylaxis #2 ea 2-Jeremy) sertraline 50 mg tablet 50 mg PO DAILY #90 tabs 09/11/21 fluticasone furoate 200 1 inh inhalation DAILY 90 days #3 12/12/21 mcg-vilanterol 25 mcg/dose ea inhalation powder prednisone 10 mg tablet See Rx Instructions PO DAILY #20 01/26/22 tabs albuterol sulfate 90 mcg/actuation 2 puff inhalation QID 90 days #8.5 03/03/22 aerosol inhaler (Ventolin HFA) grams betamethasone, augmented 0.05 % 1 appl topical BID PRN skin 03/03/22 topical ointment (Diprolene irritation 14 days #45 grams (augmented)) meclizine 25 mg tablet 25 mg PO DAILY PRN for dizziness 03/03/22 #14 tabs Allergies Allergy/AdvReac Type Severity Reaction Status Date / Time bacitracin [Bacitracin] Allergy Unknown UNKNOWN Verified 03/16/22 15:18 budesonide [Symbicort] Allergy Unknown Unknown Verified 03/16/22 15:18 cephalexin [Keflex] Allergy Unknown Unknown Verified 03/16/22 15:18 egg yolk Allergy Unknown UNKNOWN Verified 03/16/22 15:18 Egg/Pro Allergy Unknown Unknown Verified 03/16/22 15:18 formoterol [Symbicort] Allergy Unknown Unknown Verified 03/16/22 15:18 Iodinated Contrast Media Allergy Unknown BY SKIN Verified 03/16/22 15:18 [IV Dye, Iodine Containing] TEST monosodium glutamate Allergy Unknown PER MD Verified 03/16/22 15:18 peanut [Peanut] Allergy Unknown UNKNOWN Verified 03/16/22 15:18 peanuts Allergy Unknown Unknown Verified 03/16/22 15:18 shellfish Allergy Unknown unknown Verified 03/16/22 15:18 From Reglan Allergy Unknown UNKNOWN Uncoded 03/16/22 13:34 Review of Systems Review of Systems: Constitutional : No Weight loss, No Fever, No Chills, No Fatigue, No Malaise ENT/Mouth : No sore throat, No Rhinorrhea Eyes: No Eye Pain, No Swelling, No Redness Cardiovascular : No Chest Pain, No SOB, No Dyspnea on Exertion, No Orthopnea, No Edema, No Palpitations Respiratory : No Cough, No Sputum, No Wheezing Gastrointestinal : No Nausea, No Vomiting, No Diarrhea, No Constipation, No abdominal Pain, No Hematochezia, No Melena Genitourinary : No Dysuria, No Urinary Frequency, No Hematuria, Musculoskeletal : No joint pain, No Myalgias, No Joint Swelling Skin : No Skin Lesions, No rash, + cellulitis to R. thigh Neuro : No Weakness, No Numbness, No Dizziness, No Headache Psych : No Anxiety/Panic, No Depression All other systems reviewed and are negative Yes all other systems are reviewed and are negative [facility] Past Medical History Attestation statement: The following information was validated with the patient. Source: old records reviewed and nursing notes reviewed Medical History Allergic rhinitis Anxiety and depression Asthma COVID-19 virus infection Eczematous dermatitis Foot fracture, right GERD (gastroesophageal reflux disease) Hypercholesterolemia Lymphedema Morbid obesity with BMI of 40.0-44.9, adult Obesity Obstructive sleep apnea Peripheral vascular disease Pulmonary hypertension Right leg pain Screening for breast cancer Screening for colon cancer Screening for diabetes mellitus Screening for hyperlipidemia Shortness of breath on exertion Vitamin D deficiency Surgical History H/O right breast biopsy Family History Family History Father Lymphoma CVD (cardiovascular disease) Mother CVD (cardiovascular disease) Hypertension Colon cancer Glaucoma Brother Leukemia Paternal Aunt Breast cancer Paternal Uncle Pancreatic cancer Other Mental health disorder Social History Social History Housing: Apartment Patient Tobacco Use Status: Never used Tobacco e-Cigarette/Vaping Use: Never Used Second Hand Smoke Exposure: No Advance Directives: No Advance Directives Information Provided: No service: No Current occupational status: employed Cognitive needs: No Hearing needs: No Vision needs: Yes Physical Exam Vital Signs: Vital Signs: Last Vital Signs Temp 98.6 F 03/16/22 15:12 Pulse 101 H 03/16/22 15:12 Resp 18 03/16/22 15:12 BP 134/54 L 03/16/22 15:12 Pulse Ox 98 03/16/22 15:12 O2 Del Method 03/16/22 15:12 BMI result Body Mass Index 70.7 vss Appearance: Alert.? Oriented X3.? No acute distress.? Head: Normocephalic, atraumatic, no step-offs or deformities Eyes: Pupils equal, round and reactive to light.? ENT: Pharynx normal.? Neck: Normal inspection.? Neck supple.? CVS: Normal heart rate and rhythm.? Pulses normal.? Respiratory: No respiratory distress.? Breath sounds normal.? Abdomen: Soft and nontender.? Skin: Skin warm and dry.? Normal skin color.? Normal skin turgor.?+ large area cellulitis 10 cm x 12 cm to the right lateral thigh with overlying warmth Extremities: No lower extremity edema.? No calf ttp. 5/5 strength to bilateral upper and lower extremities Back: No midline tenderness, no C-spine tenderness, full range of motion, no CVA tenderness bilaterally Neuro: Oriented X 3.? No motor deficit.? No sensory deficit. CN 2-12 intact Course Reevaluation(s) Reevaluation #1: CBC with markedly elevated leukocytosis 24.6 concerning for infection, chemistry with no acute electrolyte abnormalities requiring intervention. Patient also noted to have a urinary tract infection. She is being covered with broad- spectrum antibiotics Zosyn. Will obtain ESR, CRP, lactic acid pending. At this time infection suspected. Septic focus exam was done at the bedside. Medical Decision Making Medical Decision Making [facility] Narrative: 1605 41-year-old female presents with redness, warmth to the right lateral thigh x2 days worsening Physical examination significant for 41-year-old morbidly obese female lying comfortably on the stretcher with significant cellulitis to the right lateral thigh. Physical examination consistent with cellulitis unlikely necrotizing infection, erysipelas, septic joint. I do not suspect venous occlusion or arterial occlusion to lower extremities. Plan at this time labs, blood cultures, lactic acid will give Zosyn for broad coverage. Lab Data Result Diagrams: 03/16/22 15:44 03/16/22 15:44 Labs: Lab Results 03/16/22 03/16/22 03/16/22 Range/Units 15:43 15:44 15:44 WBC 24.6 H (4.8-10.8) X10*3/uL RBC 5.00 (4.20-5.50) X10*6/uL Hgb 12.4 (12.0-16.0) g/dl Hct 39.0 (37.0-47.0) % MCV 78.0 L (80.0-98.0) fL MCH 24.8 L (27.0-33.0) pg MCHC 31.8 (31.0-35.0) g/dl RDW 15.6 (11.0-16.0) % Plt Count 194 (160-400) X10*3/uL MPV 11.5 (9.4-12.3) fL Immature Gran % (Auto) 0.7 H (0.0-0.4) % Neut % (Auto) 93.0 H (45-73) % Lymph % (Auto) 3.9 L (20-40) % [place] % (Auto) 2.1 (2-11) % Eos % (Auto) 0.1 (0-4) % Baso % (Auto) 0.2 (0-2) % Lymph # (Auto) 1.0 L (1.2-4.9) X10*3/uL [place] # (Auto) 0.5 (0.1-1.2) X10*3/uL Eos # (Auto) 0.0 (0.0-0.4) X10*3/uL Baso # (Auto) 0.1 (0.0-0.2) X10*3/uL Abs Immat Gran (auto) 0.16 H (0.00-0.03) X10*3/uL Absolute Neuts (auto) 22.9 H (2.0-8.3) x10*3/uL Absolute Nucleated RBC 0.000 (0.0-0.012) X10*3/uL Nucleated RBC % (auto) 0.0 (0.0-0.2) /100WBC Smear Tech's Comments VERIFIED Sodium 137 (135-145) mmol/L Potassium 3.3 D (3.3-5.1) mmol/L Chloride 100 (96-108) mmol/L Carbon Dioxide 28 (22-29) mmol/L Anion Gap 12 (12-20) BUN 15 (9-16) mg/dL Creatinine 0.84 (0.5-1.4) mg/dL Estim Creat Clear Calc 121.9 Estimated GFR > 60 Random Glucose 107 (60-115) mg/dL Lactic Acid (0.5-2.0) mmol/L Calcium 8.7 D (8.4-10.2) mg/dL Total Bilirubin 1.1 H (0.0-1.0) mg/dL AST 11 (5-31) U/L ALT 12 (0-31) U/L Alkaline Phosphatase 85 (39-117) U/L Total Protein 6.5 (6.5-8.0) g/dL Albumin 3.8 (3.5-5.0) g/dL Urine Color Urine Appearance Urine pH (5.0-9.0) Ur Specific [place] (1.005-1.025) Urine Protein (Neg-Trace) mg/dL Urine Glucose (UA) (Negative) mg/dL Urine Ketones (Negative) mg/dL Urine Blood (Negative) Urine Nitrite (Negative) Ur Leukocyte Esterase (Negative) Urine RBC (0-2) /HPF Urine WBC (0-5) /HPF Ur Squamous Epith Cells (0-2) /HPF Urine Bacteria (None Seen) Hyaline Casts (0-2) /LPF Urine Test (NEGATIVE) COVID-19 (CATHY) (Negative) COVID-19 Clin Com Influenza Type A (INESSA) Negative (Negative) Influenza Type B (INESSA) Negative (Negative) Influenza A & B Note See Note 03/16/22 03/16/22 03/16/22 Range/Units 15:44 15:44 16:13 WBC (4.8-10.8) X10*3/uL RBC (4.20-5.50) X10*6/uL Hgb (12.0-16.0) g/dl Hct (37.0-47.0) % MCV (80.0-98.0) fL MCH (27.0-33.0) pg MCHC (31.0-35.0) g/dl RDW (11.0-16.0) % Plt Count (160-400) X10*3/uL MPV (9.4-12.3) fL Immature Gran % (Auto) (0.0-0.4) % Neut % (Auto) (45-73) % Lymph % (Auto) (20-40) % [place] % (Auto) (2-11) % Eos % (Auto) (0-4) % Baso % (Auto) (0-2) % Lymph # (Auto) (1.2-4.9) X10*3/uL [place] # (Auto) (0.1-1.2) X10*3/uL Eos # (Auto) (0.0-0.4) X10*3/uL Baso # (Auto) (0.0-0.2) X10*3/uL Abs Immat Gran (auto) (0.00-0.03) X10*3/uL Absolute Neuts (auto) (2.0-8.3) x10*3/uL Absolute Nucleated RBC (0.0-0.012) X10*3/uL Nucleated RBC % (auto) (0.0-0.2) /100WBC Smear Tech's Comments Sodium (135-145) mmol/L Potassium (3.3-5.1) mmol/L Chloride (96-108) mmol/L Carbon Dioxide (22-29) mmol/L Anion Gap (12-20) BUN (9-16) mg/dL Creatinine (0.5-1.4) mg/dL Estim Creat Clear Calc Estimated GFR Random Glucose (60-115) mg/dL Lactic Acid 1.3 (0.5-2.0) mmol/L Calcium (8.4-10.2) mg/dL Total Bilirubin (0.0-1.0) mg/dL AST (5-31) U/L ALT (0-31) U/L Alkaline Phosphatase (39-117) U/L Total Protein (6.5-8.0) g/dL Albumin (3.5-5.0) g/dL Urine Color Dark Yellow Urine Appearance Cloudy Urine pH 5.0 (5.0-9.0) Ur Specific [place] >= 1.030 H (1.005-1.025) Urine Protein 30 (1+) H (Neg-Trace) mg/dL Urine Glucose (UA) Negative (Negative) mg/dL Urine Ketones Trace (Negative) mg/dL Urine Blood Moderate (2+) H (Negative) Urine Nitrite Negative (Negative) Ur Leukocyte Esterase Moderate (2+) H (Negative) Urine RBC >20 H (0-2) /HPF Urine WBC >50 H (0-5) /HPF Ur Squamous Epith Cells 11-20 (0-2) /HPF Urine Bacteria 4+ (None Seen) Hyaline Casts 0-2 (0-2) /LPF Urine Test (NEGATIVE) COVID-19 (CATHY) Negative (Negative) COVID-19 Clin Com See Note Influenza Type A (INESSA) (Negative) Influenza Type B (INESSA) (Negative) Influenza A & B Note 03/16/22 Range/Units 16:13 WBC (4.8-10.8) X10*3/uL RBC (4.20-5.50) X10*6/uL Hgb (12.0-16.0) g/dl Hct (37.0-47.0) % MCV (80.0-98.0) fL MCH (27.0-33.0) pg MCHC (31.0-35.0) g/dl RDW (11.0-16.0) % Plt Count (160-400) X10*3/uL MPV (9.4-12.3) fL Immature Gran % (Auto) (0.0-0.4) % Neut % (Auto) (45-73) % Lymph % (Auto) (20-40) % [place] % (Auto) (2-11) % Eos % (Auto) (0-4) % Baso % (Auto) (0-2) % Lymph # (Auto) (1.2-4.9) X10*3/uL [place] # (Auto) (0.1-1.2) X10*3/uL Eos # (Auto) (0.0-0.4) X10*3/uL Baso # (Auto) (0.0-0.2) X10*3/uL Abs Immat Gran (auto) (0.00-0.03) X10*3/uL Absolute Neuts (auto) (2.0-8.3) x10*3/uL Absolute Nucleated RBC (0.0-0.012) X10*3/uL Nucleated RBC % (auto) (0.0-0.2) /100WBC Smear Tech's Comments Sodium (135-145) mmol/L Potassium (3.3-5.1) mmol/L Chloride (96-108) mmol/L Carbon Dioxide (22-29) mmol/L Anion Gap (12-20) BUN (9-16) mg/dL Creatinine (0.5-1.4) mg/dL Estim Creat Clear Calc Estimated GFR Random Glucose (60-115) mg/dL Lactic Acid (0.5-2.0) mmol/L Calcium (8.4-10.2) mg/dL Total Bilirubin (0.0-1.0) mg/dL AST (5-31) U/L ALT (0-31) U/L Alkaline Phosphatase (39-117) U/L Total Protein (6.5-8.0) g/dL Albumin (3.5-5.0) g/dL Urine Color Urine Appearance Urine pH (5.0-9.0) Ur Specific [place] (1.005-1.025) Urine Protein (Neg-Trace) mg/dL Urine Glucose (UA) (Negative) mg/dL Urine Ketones (Negative) mg/dL Urine Blood (Negative) Urine Nitrite (Negative) Ur Leukocyte Esterase (Negative) Urine RBC (0-2) /HPF Urine WBC (0-5) /HPF Ur Squamous Epith Cells (0-2) /HPF Urine Bacteria (None Seen) Hyaline Casts (0-2) /LPF Urine Test NEGATIVE (NEGATIVE) COVID-19 (CATHY) (Negative) COVID-19 Clin Com Influenza Type A (INESSA) (Negative) Influenza Type B (INESSA) (Negative) Influenza A & B Note Discharge Plan Discharge Clinical Impression: Cellulitis, UTI (urinary tract infection) Patient Disposition: Still a Patient Prescriptions: No Action omeprazole 20 mg capsule,delayed release(DR/EC) 20 mg PO DAILY Qty: 90 2RF cholecalciferol (vitamin D3) 1,250 mcg (50,000 unit) capsule 1,250 mcg PO QWEEK Qty: 12 2RF furosemide [Lasix] 20 mg tablet 20 mg PO QAM 30 Days Qty: 30 0RF sertraline 50 mg tablet 50 mg PO DAILY Qty: 90 2RF prednisone 10 mg tablet See Rx Instructions PO DAILY Qty: 20 0RF Rx Instructions: 4 tabs QD x 2 days then 3 tabs QD x 2 days then 2 tabs Qd x 2 days then 1 tab QD x 2 days PO daily; meclizine 25 mg tablet 25 mg PO DAILY PRN (Reason: for dizziness) Qty: 14 11RF albuterol sulfate [Ventolin HFA] 90 mcg/actuation HFA aerosol inhaler 2 puff inhalation QID 90 Days Qty: 8.5 0RF betamethasone, augmented [Diprolene (augmented)] 0.05 % ointment 1 appl topical BID PRN (Reason: skin irritation) 14 Days Qty: 45 0RF alprazolam 0.5 mg tablet PO fluticasone propionate 50 mcg/actuation spray,suspension intranasal medroxyprogesterone 10 mg tablet PO fluticasone furoate-vilanterol 200-25 mcg/dose blister with device 1 inh inhalation DAILY 90 Days Qty: 3 3RF epinephrine [EpiPen 2-Jeremy] 0.3 mg/0.3 mL auto-injector 0.3 mg IM Q4H PRN (Reason: anaphylaxis) Qty: 2 0RF
[2022-03-16 16:20] LABS: Appearance Urine Cloudy; Color Urine Dark Yellow; Glucose Urine UA Negative (Negative); Leukocyte Esterase Urine Moderate (2+) (Negative); Nitrite Urine Negative (Negative); Specific Gravity - Urine >= 1.030 (1.005-1.025); UMIC TRIGGER UACC YES; Urine Blood Moderate (2+) (Negative); Urine Ketones Trace mg/dL (Negative); Urine Protein 30 (1+) mg/dL (Neg-Trace)
[2022-03-16 16:22] LABS: SLIDE REVIEW VERIFIED
[2022-03-16 16:26] LABS: UPreg QC Valid YES; Urine Pregnancy NEGATIVE (NEGATIVE)
[2022-03-16 16:32] LABS: Bacteria Urine 4+ (None Seen); Hyaline Casts Urine 0-2 /LPF (0-2); RBC Urine >20 /HPF (0-2); UACC Culture Trigger YES; WBC Urine >50 /HPF (0-5)
[2022-03-16 16:42] LABS: B Type Natriuretic Peptide 34 pg/mL (<100)
[2022-03-16] MEDS: Piperacillin Sodium/Tazobactam 3.375 GM in 0.9 % Sodium Chloride 50 ML IV (16:57)
[2022-03-16 17:05] LABS: C Reactive Protein 23.73 mg/dL (< or = 0.50)
[2022-03-16] MEDS: 0.9 % Sodium Chloride 1,000 ML 999 ML IV (17:06)
--- NOTE | 2022-03-16 17:26 | PHA.MEDREC ---
Pharmacy Consult ? Medication Reconciliation Pharmacy has completed the medication reconciliation.
[2022-03-16 17:35] LABS: Erythrocyte Sedimentation Rate 38 MM/HR (0-20)
[2022-03-16 18:38] VITALS: BP 123/63; PULSE 95; RESP 14; O2SAT 100
[2022-03-16] MEDS: Acetaminophen 325 MG TABLET 975 MG PO (18:58)
--- NOTE | 2022-03-16 19:46 | PC.NURSE ---
Assumed care of pt. at 1900. Pt. ambulated to bathroom. Pt. reports pain in her lower extremity only when moving. It felt heavy during ambulation. Pt's ambulation is steady.
[2022-03-16 20:29] VITALS: BP 117/51; PULSE 90; TEMP 37.1; O2SAT 97
--- NOTE | 2022-03-16 21:10 | P.HPHOSP_ITS ---
History of Present Illness Date of Service: 03/16/22 Chief Complaint: cellulitis 41-year-old female with past medical history of lymphedema on the right leg, obesity, eczema, hypercholesterolemia, asthma peripheral vascular disease, obstructive sleep apnea, presents to the hospital with complaints of redness, swelling, and pain in her right thigh. Patient reports that she noticed skin changes about 2 days ago, she reports no fever, no chills, has no drainage of the site, has some nausea with no vomiting. no abdominal pain , or vomiting, no diarrhea constipation, no urinary symptoms and no lower extremity edema PE on arrival to the ED patient hemodynamically stable with a heart rate of 101 blood pressure stable Labs are significant for WBC count of 24.6, ESR of 38, CRP of 23, UA positive for leukocyte Estrace and WBC Review of Systems Review of Systems: Yes all other systems are reviewed and are negative [facility] Medical History Allergic rhinitis Anxiety and depression Asthma COVID-19 virus infection Eczematous dermatitis Foot fracture, right GERD (gastroesophageal reflux disease) Hypercholesterolemia Lymphedema Morbid obesity with BMI of 40.0-44.9, adult Obesity Obstructive sleep apnea Peripheral vascular disease Pulmonary hypertension Right leg pain Screening for breast cancer Screening for colon cancer Screening for diabetes mellitus Screening for hyperlipidemia Shortness of breath on exertion Vitamin D deficiency Family History Father Lymphoma CVD (cardiovascular disease) Mother CVD (cardiovascular disease) Hypertension Colon cancer Glaucoma Brother Leukemia Paternal Aunt Breast cancer Paternal Uncle Pancreatic cancer Other Mental health disorder Surgical History H/O right breast biopsy Social History Housing: Apartment Patient Tobacco Use Status: Never used Tobacco e-Cigarette/Vaping Use: Never Used Second Hand Smoke Exposure: No Advance Directives: No Advance Directives Information Provided: No service: No Current occupational status: employed Cognitive needs: No Hearing needs: No Vision needs: Yes Meds Allergies Allergy/AdvReac Type Severity Reaction Status Date / Time bacitracin [Bacitracin] Allergy Unknown UNKNOWN Verified 03/16/22 15:18 budesonide [Symbicort] Allergy Unknown Unknown Verified 03/16/22 15:18 cephalexin [Keflex] Allergy Unknown Unknown Verified 03/16/22 15:18 egg yolk Allergy Unknown UNKNOWN Verified 03/16/22 15:18 Egg/Pro Allergy Unknown Unknown Verified 03/16/22 15:18 formoterol [Symbicort] Allergy Unknown Unknown Verified 03/16/22 15:18 Iodinated Contrast Media Allergy Unknown BY SKIN Verified 03/16/22 15:18 [IV Dye, Iodine Containing] TEST monosodium glutamate Allergy Unknown PER MD Verified 03/16/22 15:18 peanut [Peanut] Allergy Unknown UNKNOWN Verified 03/16/22 15:18 peanuts Allergy Unknown Unknown Verified 03/16/22 15:18 shellfish Allergy Unknown unknown Verified 03/16/22 15:18 From Reglan Allergy Unknown UNKNOWN Uncoded 03/16/22 13:34 Active Medications: Current Medications Acetaminophen (Acetaminophen 325 Mg Tablet) 650 mg PO Q6H PRN PRN Reason: Pain, Mild (Pain Scale 1-3) Docusate Sodium (Docusate Sodium 100 Mg Capsule) 100 mg PO DAILY PRN PRN Reason: Constipation Enoxaparin Sodium (Enoxaparin Sodium 40 Mg/0.4 Ml Syringe) 40 mg SUBCUT Q12H J LUIS Vancomycin HCl 1,000 mg/Vancomycin HCl 750 mg/ Sodium Chloride 535 mls @ 267.5 mls/hr IV Q8H J LUIS Ondansetron HCl (Ondansetron Hcl 4 Mg/2 Ml Vial) 4 mg IVPUSH Q8H PRN PRN Reason: Nausea and Vomiting Pharmacy Consult (Consult Rx Perform Med Rec) 1 each MISCELLANE ONCE PRN PRN Reason: Consult order Pharmacy Consult (Consult Rx Vancomycin Dosing) 1 each MISCELLANE DAILY PRN PRN Reason: Consult order Home Medications Medication Instructions Recorded Confirmed Last Taken Type cholecalciferol (vitamin D3) 1,250 1,250 mcg PO TU 03/16/22 03/16/22 03/06/22 History mcg (50,000 unit) capsule Physical Exam Vital Signs and Narrative: Vital Signs: Last Vital Signs Temp 98.8 F 03/16/22 20:29 Pulse 90 03/16/22 20:29 Resp 14 03/16/22 18:38 BP 117/51 L 03/16/22 20:29 Pulse Ox 97 03/16/22 20:29 O2 Del Method 03/16/22 20:29 BMI result Body Mass Index 70.7 Const: Other: Obese General: cooperative and no acute distress Orientation/consciousness: patient oriented x3 Eyes: General: appearance normal, both eyes and all related structures Resp: Effort & Inspection: normal respiratory effort Auscultation: clear to auscultation bilaterally Cardio: Rate: regular rate Rhythm: regular rhythm GI: Palpation (GI): Soft to palpation Auscultation: normal bowel sounds Skin: Other: right lateral thigh skin changes with erythema, warmth, edema, as well as tenderness Neuro: General: patient oriented x3 Cognition (Neuro): normal cognition Extrem: Other: right lower extremity lymphedema of the thigh General: Yes normal to inspection and Yes no pedal edema Results Labs CBC and Chem 7: 03/16/22 15:44 03/16/22 15:44 Labs: Laboratory Results - last 24 hr 03/16/22 03/16/22 03/16/22 15:43 15:43 15:44 MCV 78.0 L MCH 24.8 L MCHC 31.8 RDW 15.6 Plt Count 194 MPV 11.5 Immature Gran % (Auto) 0.7 H Neut % (Auto) 93.0 H Lymph % (Auto) 3.9 L [place] % (Auto) 2.1 Eos % (Auto) 0.1 Baso % (Auto) 0.2 Lymph # (Auto) 1.0 L [place] # (Auto) 0.5 Eos # (Auto) 0.0 Baso # (Auto) 0.1 Abs Immat Gran (auto) 0.16 H Absolute Neuts (auto) 22.9 H Absolute Nucleated RBC 0.000 Nucleated RBC % (auto) 0.0 Smear Tech's Comments VERIFIED ESR Anion Gap Estim Creat Clear Calc Estimated GFR Random Glucose Lactic Acid Calcium Total Bilirubin AST ALT Alkaline Phosphatase C-Reactive Protein B-Natriuretic Peptide 34 Total Protein Albumin Urine Color Urine Appearance Urine pH Ur Specific [place] Urine Protein Urine Glucose (UA) Urine Ketones Urine Blood Urine Nitrite Ur Leukocyte Esterase Urine RBC Urine WBC Ur Squamous Epith Cells Urine Bacteria Hyaline Casts Urine Test COVID-19 (CATHY) COVID-19 Clin Com Influenza Type A (INESSA) Negative Influenza Type B (INESSA) Negative Influenza A & B Note See Note 03/16/22 03/16/22 03/16/22 15:44 15:44 15:44 MCV MCH MCHC RDW Plt Count MPV Immature Gran % (Auto) Neut % (Auto) Lymph % (Auto) [place] % (Auto) Eos % (Auto) Baso % (Auto) Lymph # (Auto) [place] # (Auto) Eos # (Auto) Baso # (Auto) Abs Immat Gran (auto) Absolute Neuts (auto) Absolute Nucleated RBC Nucleated RBC % (auto) Smear Tech's Comments ESR Anion Gap 12 Estim Creat Clear Calc 121.9 Estimated GFR > 60 Random Glucose 107 Lactic Acid 1.3 Calcium 8.7 D Total Bilirubin 1.1 H AST 11 ALT 12 Alkaline Phosphatase 85 C-Reactive Protein 23.73 H B-Natriuretic Peptide Total Protein 6.5 Albumin 3.8 Urine Color Urine Appearance Urine pH Ur Specific [place] Urine Protein Urine Glucose (UA) Urine Ketones Urine Blood Urine Nitrite Ur Leukocyte Esterase Urine RBC Urine WBC Ur Squamous Epith Cells Urine Bacteria Hyaline Casts Urine Test COVID-19 (CATHY) Negative COVID-19 Clin Com See Note Influenza Type A (INESSA) Influenza Type B (INESSA) Influenza A & B Note 03/16/22 03/16/22 03/16/22 15:44 16:13 16:13 MCV MCH MCHC RDW Plt Count MPV Immature Gran % (Auto) Neut % (Auto) Lymph % (Auto) [place] % (Auto) Eos % (Auto) Baso % (Auto) Lymph # (Auto) [place] # (Auto) Eos # (Auto) Baso # (Auto) Abs Immat Gran (auto) Absolute Neuts (auto) Absolute Nucleated RBC Nucleated RBC % (auto) Smear Tech's Comments ESR 38 H Anion Gap Estim Creat Clear Calc Estimated GFR Random Glucose Lactic Acid Calcium Total Bilirubin AST ALT Alkaline Phosphatase C-Reactive Protein B-Natriuretic Peptide Total Protein Albumin Urine Color Dark Yellow Urine Appearance Cloudy Urine pH 5.0 Ur Specific [place] >= 1.030 H Urine Protein 30 (1+) H Urine Glucose (UA) Negative Urine Ketones Trace Urine Blood Moderate (2+) H Urine Nitrite Negative Ur Leukocyte Esterase Moderate (2+) H Urine RBC >20 H Urine WBC >50 H Ur Squamous Epith Cells 11-20 Urine Bacteria 4+ Hyaline Casts 0-2 Urine Test NEGATIVE COVID-19 (CATHY) COVID-19 Clin Com Influenza Type A (INESSA) Influenza Type B (INESSA) Influenza A & B Note Assessment and Plan (1) Cellulitis of right thigh: Status: Acute (2) UTI (urinary tract infection): Status: Acute (3) Sepsis: Status: Acute Plan 41-year-old female with past medical history as mentioned above presents to the hospital with complaints of skin changes concerning for cellulitis # sepsis - likely sec cellulitis - has tachycardia, leukocytosis, lactic acid normal, afebrile - which he with IV antibiotic - follow cultures # cellulitis of right thigh - erythema, warmth, tenderness, edema of at the site of lymphedema of the right lateral side - will treat with IV antibiotics - monitor symptom resolution # UTI - asymptomatic - will be on antibiotics as a - follow culture # asthma - not in exacerbation - continue home inhalers DVT prophylaxis: Lovenox given patient's sepsis requiring IV antibiotics for the cellulitis patient require minimum 2 nights inpatient hospital stay for further management and monitoring Time Spent With Patient Time: Total time managing care of this patient today ____ minutes. Quality Stroke Does the patient have a stroke diagnosis?: No VTE Prior VTE?: No VTE Risk Level:: Medical - moderate - high VTE Device Contraindication: Treatment Not Indicated VTE Drug Contraindication: N/A - Med Ordered
[2022-03-16] MEDS: Enoxaparin Sodium 40 MG/0.4 ML SYRINGE SUBCUT (21:58)
[2022-03-16 22:05] VITALS: BP 102/58; PULSE 96; TEMP 36.7; O2SAT 95
--- NOTE | 2022-03-16 22:12 | PHA.PROG ---
Admission Date/Time: March 16, 2022 21:02 Indication: SKIN Weight in k.757 kg Serum Creatinine - Last 168 Hours 03/16/22 15:44 Creatinine 0.84 Estimated CrCl and GFR - Last 168 Hours 03/16/22 15:44 Estim Creat Clear Calc 121.9 Estimated GFR > 60 Vancomycin Loading Dose: 2000 Current Vancomycin Dosing Regimen: 1250 Q 12H Vancomycin Monitoring using AUC goal of 400 - 600 range with trough as surrogate marker: 555 Date and Time for next Vancomycin Level to be drawn: 03/17 @ 1700 Pharmacist Comments on Vancomycin Plan: Vancomycin dosing will take advantage of [employer] as a clinical decision support tool that uses Bayesian modeling to calculate individual patient's pharmacokinetic parameters and forecast the patient's drug concentration time course with the target goal AUC 24 range of 400 - 600 mg/L/hr.
[2022-03-16 23:55] VITALS: BP 106/62; PULSE 87; RESP 18; TEMP 36.6; O2SAT 97
[2022-03-17] MEDS: Acetaminophen 325 MG TABLET 650 MG PO ×2 (02:24→20:04)
--- NOTE | 2022-03-17 03:47 | MHC.EDTECH ---
pt has a hospital bed now for comfortableness, vitals were taken , pt can ambulate to and from restroom no issues
--- NOTE | 2022-03-17 04:54 | PC.NURSE ---
Provided pt. with hospital bed for comfort. Pt. had a headache and was medicated with tylenol. Provided pt. with a sandwich and some juice. Pt. now sleeping in room. Respirations even and unlabored.
--- NOTE | 2022-03-17 06:04 | MHC.EDTECH ---
pt is resting quietly , ambulated to restroom and back to bed , no issues
[2022-03-17 06:46] LABS: MANUAL DIFF FLAG NO
[2022-03-17 06:48] LABS: Basophils Percent Auto 0.2 % (0-2); Eosinophils Absolute Auto 0.2 X10*3/uL (0.0-0.4); Eosinophils Percent Auto 1.1 % (0-4); Hematocrit 36.4 % (37.0-47.0); Hemoglobin 11.7 g/dl (12.0-16.0); Imm Gran Abs Auto 0.09 X10*3/uL (0.00-0.03); Imm Gran Pct Auto 0.5 % (0.0-0.4); Lymphocytes Absolute Auto 1.5 X10*3/uL (1.2-4.9); Lymphocytes Percent Auto 9.1 % (20-40); Mean Corpuscular HGB Conc 32.1 g/dl (31.0-35.0); Mean Corpuscular Hemoglobin 25.1 pg (27.0-33.0); Mean Corpuscular Volume 78.1 fL (80.0-98.0); Mean Platelet Volume 12.5 fL (9.4-12.3); Monocytes Absolute Auto 0.6 X10*3/uL (0.1-1.2); Monocytes Percent Auto 3.4 % (2-11); Neutrophils Absolute Auto 14.1 x10*3/uL (2.0-8.3); Neutrophils Percent Auto 85.7 % (45-73); Platelet Count 177 X10*3/uL (160-400); Red Blood Count 4.66 X10*6/uL (4.20-5.50); Red Cell Distribution Width 15.7 % (11.0-16.0); White Blood Count 16.4 X10*3/uL (4.8-10.8)
[2022-03-17 07:01] LABS: Anion Gap 14 (12-20); Blood Urea Nitrogen 11 mg/dL (9-16); Calcium 8.5 mg/dL (8.4-10.2); Carbon Dioxide 25 mmol/L (22-29); Chloride 105 mmol/L (96-108); Creatinine Clr Calc Pharmacy 144.2; Estimated Glomerular Filt Rate > 60; Glucose Random 88 mg/dL (60-115); Potassium 3.5 mmol/L (3.3-5.1); Sodium 140 mmol/L (135-145)
[2022-03-17] MEDS: vancomycin HCL 1,250 MG in 0.9 % Sodium Chloride 250 ML 166.67 MG IV ×2 (07:23→21:11)
--- NOTE | 2022-03-17 07:30 | PC.NURSE ---
axox3. ambulatory to BR. left upper leg cellulitis is expansive. warm to touch, pink. No open areas. no discharge. perimeter marked with skin marker. pt has no complaints outside of cellulites.
[2022-03-17 07:43] VITALS: BP 123/72; PULSE 96; RESP 18; TEMP 37.2; O2SAT 97
[2022-03-17 08:00] VITALS: PULSE 96; RESP 16; O2SAT 97
[2022-03-17] MEDS: Albuterol Sulfate 90 MCG 8 GM INHALER 2 PUFF INHALE ×4 (08:00→20:24)
[2022-03-17 10:17] VITALS: BP 122/72; PULSE 97; RESP 20; O2SAT 96
[2022-03-17] MEDS: Fluticasone/Vilanterol 200/25 BLST.W.DEV 1 PUFF INHALE (10:58)
[2022-03-17] MEDS: Enoxaparin Sodium 40 MG/0.4 ML SYRINGE SUBCUT ×2 (11:42→21:12)
[2022-03-17 11:47] VITALS: BP 131/76; PULSE 94; RESP 18; TEMP 37.4; O2SAT 97
--- NOTE | 2022-03-17 11:48 | HO.PM.IMPN ---
Subjective Subjective Date of Service: 03/17/22 Interval History: seen and examined this morning follow up for right thigh cellulitis feels feverish, having pain right thigh Review of Systems Review of Systems: Yes all other systems are reviewed and are negative Constitutional Constitutional: Denies chills and Reports fever(s) Cardiovascular Cardiovascular: Denies chest pain, Denies palpitations and Denies dyspnea Respiratory Respiratory: Denies cough and Denies dyspnea Gastrointestinal Gastrointestinal: Denies abdominal pain, Denies nausea and Denies vomiting Endocrine Endocrine: Denies palpitations Physical Exam Vital Signs: Vital Signs: Last Vital Signs Temp 99.3 F 03/17/22 11:47 Pulse 94 03/17/22 11:47 Resp 18 03/17/22 11:47 BP 131/76 03/17/22 11:47 Pulse Ox 97 03/17/22 11:47 O2 Del Method 03/17/22 11:47 BMI result Body Mass Index 70.7 Const: General: alert and awake Nutritional Appearance: obese Orientation/consciousness: patient oriented x3 Resp: Effort & Inspection: normal respiratory effort and able to speak in complete sentences Cardio: Other: distant heart sounds Rate: regular rate GI: Inspection: Yes Abdominal panniculus present and Yes obesity Palpation (GI): Soft to palpation and nontender Skin: Other: Neuro: Other: no focal neurological deficits General: patient oriented x3 Objective Data Active Medications Acetaminophen (Acetaminophen 325 Mg Tablet) 650 mg PO Q6H PRN PRN Reason: Pain, Mild (Pain Scale 1-3) Last Admin: 03/17/22 02:24 Dose: 650 mg Documented By: CORINNE Albuterol Sulfate (Albuterol Sulfate 90 Mcg 8 Gm Inhaler) 2 puff INHALE RQID [facility] Last Admin: 03/17/22 11:43 Dose: 2 puff Documented By: LUIS Betamethasone Dipropion Augmented (Betamethasone Dip Aug 0.05% Cr 15 Gm Tube) 1 appl TOPICAL BID PRN PRN Reason: skin irritation Docusate Sodium (Docusate Sodium 100 Mg Capsule) 100 mg PO DAILY PRN PRN Reason: Constipation Enoxaparin Sodium (Enoxaparin Sodium 40 Mg/0.4 Ml Syringe) 40 mg SUBCUT Q12H [facility] Last Admin: 03/17/22 11:42 Dose: 40 mg Documented By: LUIS Fluticasone/Vilanterol (Fluticasone/Vilanterol 200/25 Blst.W.Dev) 1 puff INHALE RDAILY [facility] Last Admin: 03/17/22 10:58 Dose: 1 puff Documented By: LUIS Vancomycin HCl 1,250 mg/ (Sodium Chloride) 250 mls @ 166.667 mls/hr IV Q12H [facility] Last Infusion: 03/17/22 09:00 Dose: 0 mls/hr Documented By: LUIS Meclizine HCl (Meclizine Hcl 25 Mg Tablet) 25 mg PO DAILY PRN PRN Reason: for dizziness Non-Formulary Medication (Cholecalciferol (Vitamin D3)) 1,250 mcg PO [facility] Non-Formulary Medication (Epinephrine [Epipen 2-Jeremy]) 0.3 mg IM Q4H PRN PRN Reason: anaphylaxis Ondansetron HCl (Ondansetron Hcl 4 Mg/2 Ml Vial) 4 mg IVPUSH Q8H PRN PRN Reason: Nausea and Vomiting Pharmacy Consult (Consult Rx Perform Med Rec) 1 each MISCELLANE ONCE PRN PRN Reason: Consult order Pharmacy Consult (Consult Rx Vancomycin Dosing) 1 each MISCELLANE DAILY PRN PRN Reason: Consult order Labs CBC & Chem 7: 03/17/22 06:08 03/17/22 06:08 Labs: Laboratory Results - last 24 hr 03/16/22 03/16/22 03/16/22 15:43 15:43 15:44 MCV 78.0 L MCH 24.8 L MCHC 31.8 RDW 15.6 Plt Count 194 MPV 11.5 Immature Gran % (Auto) 0.7 H Neut % (Auto) 93.0 H Lymph % (Auto) 3.9 L [place] % (Auto) 2.1 Eos % (Auto) 0.1 Baso % (Auto) 0.2 Lymph # (Auto) 1.0 L [place] # (Auto) 0.5 Eos # (Auto) 0.0 Baso # (Auto) 0.1 Abs Immat Gran (auto) 0.16 H Absolute Neuts (auto) 22.9 H Absolute Nucleated RBC 0.000 Nucleated RBC % (auto) 0.0 Smear Tech's Comments VERIFIED ESR Anion Gap Estim Creat Clear Calc Estimated GFR Random Glucose Lactic Acid Calcium Total Bilirubin AST ALT Alkaline Phosphatase C-Reactive Protein B-Natriuretic Peptide 34 Total Protein Albumin Urine Color Urine Appearance Urine pH Ur Specific [place] Urine Protein Urine Glucose (UA) Urine Ketones Urine Blood Urine Nitrite Ur Leukocyte Esterase Urine RBC Urine WBC Ur Squamous Epith Cells Urine Bacteria Hyaline Casts Urine Test COVID-19 (CATHY) COVID-19 Clin Com Influenza Type A (INESSA) Negative Influenza Type B (INESSA) Negative Influenza A & B Note See Note 03/16/22 03/16/22 03/16/22 15:44 15:44 15:44 MCV MCH MCHC RDW Plt Count MPV Immature Gran % (Auto) Neut % (Auto) Lymph % (Auto) [place] % (Auto) Eos % (Auto) Baso % (Auto) Lymph # (Auto) [place] # (Auto) Eos # (Auto) Baso # (Auto) Abs Immat Gran (auto) Absolute Neuts (auto) Absolute Nucleated RBC Nucleated RBC % (auto) Smear Tech's Comments ESR Anion Gap 12 Estim Creat Clear Calc 121.9 Estimated GFR > 60 Random Glucose 107 Lactic Acid 1.3 Calcium 8.7 D Total Bilirubin 1.1 H AST 11 ALT 12 Alkaline Phosphatase 85 C-Reactive Protein 23.73 H B-Natriuretic Peptide Total Protein 6.5 Albumin 3.8 Urine Color Urine Appearance Urine pH Ur Specific [place] Urine Protein Urine Glucose (UA) Urine Ketones Urine Blood Urine Nitrite Ur Leukocyte Esterase Urine RBC Urine WBC Ur Squamous Epith Cells Urine Bacteria Hyaline Casts Urine Test COVID-19 (CATHY) Negative COVID-19 Clin Com See Note Influenza Type A (INESSA) Influenza Type B (INESSA) Influenza A & B Note 03/16/22 03/16/22 03/16/22 15:44 16:13 16:13 MCV MCH MCHC RDW Plt Count MPV Immature Gran % (Auto) Neut % (Auto) Lymph % (Auto) [place] % (Auto) Eos % (Auto) Baso % (Auto) Lymph # (Auto) [place] # (Auto) Eos # (Auto) Baso # (Auto) Abs Immat Gran (auto) Absolute Neuts (auto) Absolute Nucleated RBC Nucleated RBC % (auto) Smear Tech's Comments ESR 38 H Anion Gap Estim Creat Clear Calc Estimated GFR Random Glucose Lactic Acid Calcium Total Bilirubin AST ALT Alkaline Phosphatase C-Reactive Protein B-Natriuretic Peptide Total Protein Albumin Urine Color Dark Yellow Urine Appearance Cloudy Urine pH 5.0 Ur Specific [place] >= 1.030 H Urine Protein 30 (1+) H Urine Glucose (UA) Negative Urine Ketones Trace Urine Blood Moderate (2+) H Urine Nitrite Negative Ur Leukocyte Esterase Moderate (2+) H Urine RBC >20 H Urine WBC >50 H Ur Squamous Epith Cells 11-20 Urine Bacteria 4+ Hyaline Casts 0-2 Urine Test NEGATIVE COVID-19 (CATHY) COVID-19 Clin Com Influenza Type A (INESSA) Influenza Type B (INESSA) Influenza A & B Note 03/17/22 03/17/22 06:08 06:08 MCV 78.1 L MCH 25.1 L MCHC 32.1 RDW 15.7 Plt Count 177 MPV 12.5 H Immature Gran % (Auto) 0.5 H Neut % (Auto) 85.7 H Lymph % (Auto) 9.1 L [place] % (Auto) 3.4 Eos % (Auto) 1.1 Baso % (Auto) 0.2 Lymph # (Auto) 1.5 [place] # (Auto) 0.6 Eos # (Auto) 0.2 Baso # (Auto) 0.0 Abs Immat Gran (auto) 0.09 H Absolute Neuts (auto) 14.1 H Absolute Nucleated RBC 0.000 Nucleated RBC % (auto) 0.0 Smear Tech's Comments ESR Anion Gap 14 Estim Creat Clear Calc 144.2 Estimated GFR > 60 Random Glucose 88 Lactic Acid Calcium 8.5 Total Bilirubin AST ALT Alkaline Phosphatase C-Reactive Protein B-Natriuretic Peptide Total Protein Albumin Urine Color Urine Appearance Urine pH Ur Specific [place] Urine Protein Urine Glucose (UA) Urine Ketones Urine Blood Urine Nitrite Ur Leukocyte Esterase Urine RBC Urine WBC Ur Squamous Epith Cells Urine Bacteria Hyaline Casts Urine Test COVID-19 (CATHY) COVID-19 Clin Com Influenza Type A (INESSA) Influenza Type B (INESSA) Influenza A & B Note Microbiology Microbiology Results: Microbiology 03/16/22 16:34 Urine Culture - Preliminary Urine clean catch - Urine miranda top Culture too young to evaluate. Assessment and Plan (1) Cellulitis of right thigh: Status: Acute Plan 41-year-old female with past medical history as mentioned above presents to the hospital with complaints of skin changes concerning for cellulitis sepsis secondary to cellulitis of right thigh meets criteria with tachycardia, leukocytosis - wbc count trending down, remains afebrile continue IV vancomycin blood cultures pending possible UTI pt asymptomatic follow final urine culture asthma not in exacerbation continue home inhalers DVT prophylaxis: Lovenox attending - dr. Thibodeaux given patient's sepsis requiring IV antibiotics for the cellulitis patient require minimum 2 nights inpatient hospital stay for further management and monitoring Time Spent With Patient Time: Total time managing care of this patient today ____ minutes. Quality Stroke Does the patient have a stroke diagnosis?: No VTE Prior VTE?: No VTE Risk Level:: Medical - moderate - high VTE Device Contraindication: Treatment Not Indicated VTE Drug Contraindication: N/A - Med Ordered
--- NOTE | 2022-03-17 13:07 | MHC.CM.PN ---
Met with pt to discuss d/c plans: pt resides alone and is independent with all care needs: works and drives: has no services: d/c plan is for a return to home: car in lot: pt states she will drive self home. No additional care needs anticipated. HCP declined: Vax x 2
--- NOTE | 2022-03-17 13:43 | PC.NURSE ---
no complaints. up to bathroom frequently. drinking lots of water. NAD.
[2022-03-17 14:26] VITALS: PULSE 98; RESP 18; O2SAT 95
--- NOTE | 2022-03-17 16:34 | PC.NURSE ---
Pt resting on bed at this time. reports having no pain and offers no other complaints at this time
[2022-03-17 17:28] LABS: Vancomycin Random 8.4 mcg/mL (15-20)
[2022-03-17 20:24] VITALS: BP 119/62; PULSE 93; RESP 17; TEMP 37.4; O2SAT 97
[2022-03-18 00:37] VITALS: BP 125/75; PULSE 83; RESP 17; TEMP 37; O2SAT 94
[2022-03-18 06:08] VITALS: BP 121/68; PULSE 86; RESP 17; TEMP 37.5; O2SAT 96
[2022-03-18 07:00] LABS: Creatinine Clr Calc Pharmacy 148.3; Estimated Glomerular Filt Rate > 60
[2022-03-18] MEDS: vancomycin HCL 1,250 MG in 0.9 % Sodium Chloride 250 ML 166.67 MG IV (07:10)
[2022-03-18 07:14] LABS: Hematocrit 36.3 % (37.0-47.0); Hemoglobin 11.4 g/dl (12.0-16.0); Mean Corpuscular HGB Conc 31.4 g/dl (31.0-35.0); Mean Corpuscular Hemoglobin 24.6 pg (27.0-33.0); Mean Corpuscular Volume 78.4 fL (80.0-98.0); Mean Platelet Volume 11.7 fL (9.4-12.3); Platelet Count 184 X10*3/uL (160-400); Red Blood Count 4.63 X10*6/uL (4.20-5.50); Red Cell Distribution Width 15.6 % (11.0-16.0); White Blood Count 10.6 X10*3/uL (4.8-10.8)
[2022-03-18] MEDS: Albuterol Sulfate 90 MCG 8 GM INHALER 2 PUFF INHALE (07:52)
[2022-03-18 07:53] VITALS: PULSE 97; RESP 18; O2SAT 94
[2022-03-18] MEDS: Fluticasone/Vilanterol 200/25 BLST.W.DEV 1 PUFF INHALE (07:53)
[2022-03-18 08:30] VITALS: BP 124/59; PULSE 91; RESP 20; TEMP 36.1; O2SAT 94
[2022-03-18] MEDS: Enoxaparin Sodium 40 MG/0.4 ML SYRINGE SUBCUT ×2 (09:12→21:10)
--- NOTE | 2022-03-18 13:11 | P.PNIM_ITS ---
Subjective Subjective Date of Service: 03/18/22 Interval History: seen and examine this morning follow up for right thigh cellulitis reports having fever overnight, but highest documented is 99.5 Review of Systems Review of Systems: Yes all other systems are reviewed and are negative Constitutional Constitutional: Denies chills and Denies fever(s) Cardiovascular Cardiovascular: Denies chest pain, Denies palpitations and Denies dyspnea Respiratory Respiratory: Denies cough and Denies dyspnea Gastrointestinal Gastrointestinal: Denies abdominal pain, Denies diarrhea, Denies nausea and Denies vomiting Endocrine Endocrine: Denies palpitations Physical Exam Vital Signs: Vital Signs: Last Vital Signs Temp 97.0 F 03/18/22 08:30 Pulse 91 03/18/22 08:30 Resp 20 03/18/22 08:30 BP 124/59 L 03/18/22 08:30 Pulse Ox 94 03/18/22 08:30 O2 Del Method 03/18/22 08:30 BMI result Body Mass Index 70.7 Const: General: alert and awake Nutritional Appearance: obese Orientation/consciousness: patient oriented x3 Resp: Effort & Inspection: normal respiratory effort and able to speak in complete sentences Cardio: Other: distant heart sounds Rate: regular rate GI: Inspection: Yes Abdominal panniculus present and Yes obesity Palpation (GI): Soft to palpation and nontender Skin: Other: lymphedema; erythema right thigh improved slightly, less induration; warm, tenderness improving Neuro: Other: no focal neurological deficits General: patient oriented x3 Objective Data Active Medications Acetaminophen (Acetaminophen 325 Mg Tablet) 650 mg PO Q6H PRN PRN Reason: Pain, Mild (Pain Scale 1-3) Last Admin: 03/17/22 20:04 Dose: 650 mg Documented By: BEAN Albuterol Sulfate (Albuterol Sulfate 90 Mcg 8 Gm Inhaler) 2 puff INHALE RQID J LUIS Last Admin: 03/18/22 12:04 Dose: Not Given Documented By: RICHARDRICMal Non-Admin Reason: Patient Asleep Betamethasone Dipropion Augmented (Betamethasone Dip Aug 0.05% Cr 15 Gm Tube) 1 appl TOPICAL BID PRN PRN Reason: skin irritation Docusate Sodium (Docusate Sodium 100 Mg Capsule) 100 mg PO DAILY PRN PRN Reason: Constipation Enoxaparin Sodium (Enoxaparin Sodium 40 Mg/0.4 Ml Syringe) 40 mg SUBCUT Q12H [facility] Last Admin: 03/18/22 09:12 Dose: 40 mg Documented By: NOEMI Fluticasone/Vilanterol (Fluticasone/Vilanterol 200/25 Blst.W.Dev) 1 puff INHALE RDAILY [facility] Last Admin: 03/18/22 07:53 Dose: 1 puff Documented By: EARLINE Vancomycin HCl 1,250 mg/ (Sodium Chloride) 250 mls @ 166.667 mls/hr IV Q12H [facility] Last Infusion: 03/18/22 09:10 Dose: 0 mls/hr Documented By: NOEMI Meclizine HCl (Meclizine Hcl 25 Mg Tablet) 25 mg PO DAILY PRN PRN Reason: for dizziness Non-Formulary Medication (Cholecalciferol (Vitamin D3)) 1,250 mcg PO [facility] [place]-Formulary Medication (Epinephrine [Epipen 2-Jeremy]) 0.3 mg IM Q4H PRN PRN Reason: anaphylaxis Ondansetron HCl (Ondansetron Hcl 4 Mg/2 Ml Vial) 4 mg IVPUSH Q8H PRN PRN Reason: Nausea and Vomiting Oxycodone HCl (Oxycodone Hcl Immed Release 5 Mg Tablet) 5 mg PO Q6H PRN PRN Reason: Pain, Severe (Pain Scale 7-10) Pharmacy Consult (Consult Rx Perform Med Rec) 1 each MISCELLANE ONCE PRN PRN Reason: Consult order Pharmacy Consult (Consult Rx Vancomycin Dosing) 1 each MISCELLANE DAILY PRN PRN Reason: Consult order Labs CBC & Chem 7: 03/18/22 06:29 03/18/22 06:29 Labs: Laboratory Results - last 24 hr 03/17/22 03/18/22 03/18/22 16:59 06:29 06:29 MCV 78.4 L MCH 24.6 L MCHC 31.4 RDW 15.6 Plt Count 184 MPV 11.7 Absolute Nucleated RBC 0.000 Nucleated RBC % (auto) 0.0 Estim Creat Clear Calc 148.3 Estimated GFR > 60 Random Vancomycin 8.4 L Microbiology Microbiology Results: Microbiology 03/16/22 16:13 Blood Culture - Preliminary Blood - Venous No growth after 24 hours. 03/16/22 15:43 Blood Culture - Preliminary Blood - Venous No growth after 24 hours. 03/16/22 16:34 Urine Culture - Preliminary Urine clean catch - Urine miranda top Culture too young to evaluate. Assessment and Plan (1) Sepsis: Status: Acute (2) Cellulitis of right thigh: Status: Acute Plan 41-year-old female with past medical history as mentioned above presents to the hospital with complaints of skin changes concerning for cellulitis sepsis secondary to cellulitis of right thigh meets criteria with tachycardia, leukocytosis - wbc count trending down, remains afebrile large area of involvement from knee to hip continue IV vancomycin blood cultures negative to date possible UTI pt asymptomatic follow final urine culture asthma not in exacerbation continue home inhalers Morbid obesity BMI 70.7 weight loss encouraged DVT prophylaxis: Lovenox attending - Dr. [place] patient requires ongoing inpatient hospitalization for cellulitis requiring IV antibiotics Time Spent With Patient Time: Total time managing care of this patient today ____ minutes. Quality Stroke Does the patient have a stroke diagnosis?: No VTE Prior VTE?: No VTE Risk Level:: Medical - moderate - high VTE Device Contraindication: Treatment Not Indicated VTE Drug Contraindication: N/A - Med Ordered
[2022-03-18 14:50] VITALS: BMI 93.9
[2022-03-18 15:19] VITALS: BP 122/70; PULSE 88; RESP 18; TEMP 36.8; O2SAT 95
[2022-03-18 17:33] LABS: Vancomycin Random 10.4 mcg/mL (15-20)
--- NOTE | 2022-03-18 17:49 | HE.PHANOTE ---
Vancomycin Dosing Addendum Patients level came back at 10.4 mg/L. Rx insight is suggesting 1750 mg Q12H. However estimated trough was 10.7 and actual trough was 10.4. Given this, chose to pick 1500 mg Q12H which should yield a trough of 15 mg/L, therapeutic for diagnosis of skin and skin structure infection. Will get level after 2 doses 1/2 @1700 to assess efficacy vs safety.
[2022-03-18] MEDS: vancomycin HCL 1,500 MG in 0.9 % Sodium Chloride 500 ML 333.33 MG IV (18:07)
[2022-03-18 20:00] VITALS: BP 124/58; PULSE 81; RESP 18; TEMP 36.8; O2SAT 97
[2022-03-19 03:56] VITALS: BP 117/54; PULSE 82; RESP 18; TEMP 36.6; O2SAT 96
[2022-03-19] MEDS: vancomycin HCL 1,500 MG in 0.9 % Sodium Chloride 500 ML 333.33 MG IV ×2 (06:15→18:24)
[2022-03-19 06:54] LABS: Creatinine Clr Calc Pharmacy 175.4; Estimated Glomerular Filt Rate > 60
[2022-03-19 07:51] VITALS: BP 103/51; PULSE 80; RESP 19; TEMP 36.9; O2SAT 94
[2022-03-19] MEDS: Albuterol Sulfate 90 MCG 8 GM INHALER 2 PUFF INHALE ×4 (08:41→19:40)
[2022-03-19] MEDS: Enoxaparin Sodium 40 MG/0.4 ML SYRINGE SUBCUT ×2 (09:34→20:23)
--- NOTE | 2022-03-19 09:56 | P.PNIM_ITS ---
Subjective Subjective Date of Service: 03/19/22 Interval History: seen and examine this morning follow up for right thigh cellulitis No fever overnight Review of Systems Review of Systems: Yes all other systems are reviewed and are negative Constitutional Constitutional: Denies chills and Denies fever(s) Cardiovascular Cardiovascular: Denies chest pain, Denies palpitations and Denies dyspnea Respiratory Respiratory: Denies cough and Denies dyspnea Gastrointestinal Gastrointestinal: Denies abdominal pain, Denies diarrhea, Denies nausea and Denies vomiting Endocrine Endocrine: Denies palpitations Physical Exam Vital Signs: Vital Signs: Last Vital Signs Temp 98.4 F 03/19/22 07:51 Pulse 80 03/19/22 07:51 Resp 19 03/19/22 07:51 BP 103/51 L 03/19/22 07:51 Pulse Ox 94 03/19/22 07:51 O2 Del Method 03/19/22 07:51 BMI result Body Mass Index 93.9 Appearing in no acute distress lung sounds are clear to auscultation heart regular rate rhythm, clear S1, S2 positive bowel sounds, abdomen is soft, nontender neuro patient is alert x3, no focal deficits Obese, erythema and edema to right thigh Objective Data Active Medications Acetaminophen (Acetaminophen 325 Mg Tablet) 650 mg PO Q6H PRN PRN Reason: Pain, Mild (Pain Scale 1-3) Last Admin: 03/17/22 20:04 Dose: 650 mg Documented By: BEAN Albuterol Sulfate (Albuterol Sulfate 90 Mcg 8 Gm Inhaler) 2 puff INHALE ID S Last Admin: 03/19/22 08:41 Dose: 2 puff Documented By: PARKER Betamethasone Dipropion Augmented (Betamethasone Dip Aug 0.05% Cr 15 Gm Tube) 1 appl TOPICAL BID PRN PRN Reason: skin irritation Docusate Sodium (Docusate Sodium 100 Mg Capsule) 100 mg PO DAILY PRN PRN Reason: Constipation Enoxaparin Sodium (Enoxaparin Sodium 40 Mg/0.4 Ml Syringe) 40 mg SUBCUT Q12H [facility] Last Admin: 03/19/22 09:34 Dose: 40 mg Documented By: SHAVONNE Fluticasone/Vilanterol (Fluticasone/Vilanterol 200/25 Blst.W.Dev) 1 puff INHALE RDAILY [facility] Last Admin: 03/18/22 07:53 Dose: 1 puff Documented By: EARLINE Vancomycin HCl 1,500 mg/ (Sodium Chloride) 500 mls @ 333.333 mls/hr IV Q12H [facility] Last Infusion: 03/19/22 07:52 Dose: 0 mls/hr Documented By: SHAVONNE Meclizine HCl (Meclizine Hcl 25 Mg Tablet) 25 mg PO DAILY PRN PRN Reason: for dizziness Non-Formulary Medication (Cholecalciferol (Vitamin D3)) 1,250 mcg [place] [facility] [place] Medication (Epinephrine [Epipen 2-Jeremy]) 0.3 mg IM Q4H PRN PRN Reason: anaphylaxis Ondansetron HCl (Ondansetron Hcl 4 Mg/2 Ml Vial) 4 mg IVPUSH Q8H PRN PRN Reason: Nausea and Vomiting Oxycodone HCl (Oxycodone Hcl Immed Release 5 Mg Tablet) 5 mg PO Q6H PRN PRN Reason: Pain, Severe (Pain Scale 7-10) Pharmacy Consult (Consult Rx Perform Med Rec) 1 each MISCELLANE ONCE PRN PRN Reason: Consult order Pharmacy Consult (Consult Rx Vancomycin Dosing) 1 each MISCELLANE DAILY PRN PRN Reason: Consult order Labs CBC & Chem 7: 03/18/22 06:29 03/19/22 05:36 Labs: Laboratory Results - last 24 hr 03/18/22 03/19/22 16:58 05:36 Estim Creat Clear Calc 175.4 Estimated GFR > 60 Random Vancomycin 10.4 L Microbiology Microbiology Results: Microbiology 03/16/22 16:13 Blood Culture - Preliminary Blood - Venous No growth after 48 hours. 03/16/22 15:43 Blood Culture - Preliminary Blood - Venous No growth after 48 hours. 03/16/22 16:34 Urine Culture - Final Urine clean catch - Urine miranda top Assessment and Plan (1) Sepsis: Status: Acute (2) Cellulitis of right thigh: Status: Acute Plan 41-year-old female with past medical history as mentioned above presents to the hospital with complaints of skin changes concerning for cellulitis Sepsis secondary to cellulitis of right thigh. Sepsis resolved meets criteria with tachycardia, leukocytosis - wbc count trending down, remains afebrile large area of involvement from knee to hip continue IV vancomycin blood cultures negative to date Asthma, chronic controlled not in exacerbation continue home inhalers Morbid obesity BMI 70.7 Discussed importance of weight management as this may be contributing to worseni ng of other comorbidities DVT prophylaxis: Alex attending - Dr. Potts patient requires ongoing inpatient hospitalization for cellulitis requiring IV antibiotics Time Spent With Patient Time: Total time managing care of this patient today ____ minutes. Quality Stroke Does the patient have a stroke diagnosis?: No VTE Prior VTE?: No VTE Risk Level:: Medical - moderate - high VTE Device Contraindication: Treatment Not Indicated VTE Drug Contraindication: N/A - Med Ordered
[2022-03-19 12:43] VITALS: PULSE 78; RESP 17; O2SAT 95
[2022-03-19 15:24] VITALS: BP 107/52; PULSE 82; RESP 20; TEMP 36.3; O2SAT 96
[2022-03-19 16:51] VITALS: PULSE 82; RESP 20; O2SAT 96
[2022-03-19 17:28] LABS: Vancomycin Random 12.8 mcg/mL (15-20)
[2022-03-19 18:46] VITALS: BP 124/60; PULSE 85; RESP 20; TEMP 37.6; O2SAT 95
[2022-03-20] VITALS (8 sets, daily range): BP systolic 100–114; BP diastolic 49–59; PULSE 75–79; RESP 18–20; TEMP 36.6–37.1; O2SAT 93–98
[2022-03-20] MEDS: vancomycin HCL 1,500 MG in 0.9 % Sodium Chloride 500 ML 333.33 MG IV ×2 (06:07→18:21)
[2022-03-20 06:54] LABS: Creatinine Clr Calc Pharmacy 175.4; Estimated Glomerular Filt Rate > 60
--- NOTE | 2022-03-20 07:53 | P.CDIC_ITS ---
CDI Concurrent Query Documentation Clarification: PHYSICIAN'S DOCUMENTATION REQUEST Date of Query: 03/20/22 0753 Patient Name: Armand Taylor Admit Date: 03/16/22 Dear Doctor, Please review the following and provide your response in the progress notes. Clinical Indicators: The diagnosis of asthma was documented in the record on 03/19/22. Additional clinical indicators from the record include: Risk Factors/Clinical Indicators/Treatments Asthma, chronic controlled not in exacerbation continue home inhalers Based on the above, please clarify in the Progress Notes further specificity regarding the type and acuity of the asthma: Type: * Mild intermittent - less than 2x/week * Mild persistent - more than 2x/week but not daily * Moderate persistent - daily and may restrict physical activity * Severe persistent - throughout the day with frequent attacks, limiting activities * Exercise induced * Chronic obstructive asthma and indicate if with acute lower respiratory infection * Asthma with underlying COPD and indicate if with acute lower respiratory infection * Other ? please specify * Unable to determine Use of terms such as suspected, likely, concern for, or probable (associated with a specific diagnosis that is being evaluated, monitored, or treated as if it exists) are acceptable and can be coded in the inpatient setting, when documented at the time of discharge. Thank you, Cierra Bee RN Extension: [phone] Please use your independent medical judgment in providing your response. THIS QUERY IS PART OF THE PERMANENT MEDICAL RECORD Other Diagnosis: Mild intermit
[2022-03-20] MEDS: Fluticasone/Vilanterol 200/25 BLST.W.DEV 1 PUFF INHALE (09:11)
[2022-03-20] MEDS: Albuterol Sulfate 90 MCG 8 GM INHALER 2 PUFF INHALE ×4 (09:11→19:52)
[2022-03-20] MEDS: Enoxaparin Sodium 40 MG/0.4 ML SYRINGE SUBCUT ×2 (09:29→20:56)
--- NOTE | 2022-03-20 12:15 | P.PNIM_ITS ---
Subjective Subjective Date of Service: 03/20/22 Interval History: seen and examine this morning follow up for right thigh cellulitis No fever overnight Review of Systems Review of Systems: Yes all other systems are reviewed and are negative Constitutional Constitutional: Denies chills and Denies fever(s) Cardiovascular Cardiovascular: Denies chest pain, Denies palpitations and Denies dyspnea Respiratory Respiratory: Denies cough and Denies dyspnea Gastrointestinal Gastrointestinal: Denies abdominal pain, Denies diarrhea, Denies nausea and Denies vomiting Endocrine Endocrine: Denies palpitations Physical Exam Vital Signs: Vital Signs: Last Vital Signs Temp 97.8 F 03/20/22 08:00 Pulse 77 03/20/22 09:11 Resp 18 03/20/22 09:11 BP 112/54 L 03/20/22 08:00 Pulse Ox 96 03/20/22 08:00 O2 Del Method 03/20/22 08:00 BMI result Body Mass Index 93.9 Appearing in no acute distress lung sounds are clear to auscultation heart regular rate rhythm, clear S1, S2 positive bowel sounds, abdomen is soft, nontender neuro patient is alert x3, no focal deficits Objective Data Active Medications Acetaminophen (Acetaminophen 325 Mg Tablet) 650 mg PO Q6H PRN PRN Reason: Pain, Mild (Pain Scale 1-3) Last Admin: 03/17/22 20:04 Dose: 650 mg Documented By: BEAN Albuterol Sulfate (Albuterol Sulfate 90 Mcg 8 Gm Inhaler) 2 puff INHALE RQID [facility] Last Admin: 03/20/22 09:11 Dose: 2 puff Documented By: STEPAN Betamethasone Dipropion Augmented (Betamethasone Dip Aug 0.05% Cr 15 Gm Tube) 1 appl TOPICAL BID PRN PRN Reason: skin irritation Docusate Sodium (Docusate Sodium 100 Mg Capsule) 100 mg PO DAILY PRN PRN Reason: Constipation Enoxaparin Sodium (Enoxaparin Sodium 40 Mg/0.4 Ml Syringe) 40 mg SUBCUT Q12H [facility] Last Admin: 03/20/22 09:29 Dose: 40 mg Documented By: DANIEL Fluticasone/Vilanterol (Fluticasone/Vilanterol 200/25 Blst.W.Dev) 1 puff INHALE RDAILY [facility] Last Admin: 03/20/22 09:11 Dose: 1 puff Documented By: STEPAN Vancomycin HCl 1,500 mg/ (Sodium Chloride) 500 mls @ 333.333 mls/hr IV Q12H J LUIS Last Infusion: 03/20/22 07:42 Dose: 0 mls/hr Documented By: DANIEL Meclizine HCl (Meclizine Hcl 25 Mg Tablet) 25 mg PO DAILY PRN PRN Reason: for dizziness Ondansetron HCl (Ondansetron Hcl 4 Mg/2 Ml Vial) 4 mg IVPUSH Q8H PRN PRN Reason: Nausea and Vomiting Oxycodone HCl (Oxycodone Hcl Immed Release 5 Mg Tablet) 5 mg PO Q6H PRN PRN Reason: Pain, Severe (Pain Scale 7-10) Pharmacy Consult (Consult Rx Perform Med Rec) 1 each MISCELLANE ONCE PRN PRN Reason: Consult order Pharmacy Consult (Consult Rx Vancomycin Dosing) 1 each MISCELLANE DAILY PRN PRN Reason: Consult order Labs CBC & Chem 7: 03/18/22 06:29 03/20/22 05:59 Labs: Laboratory Results - last 24 hr 03/19/22 03/20/22 17:01 05:59 Estim Creat Clear Calc 175.4 Estimated GFR > 60 Random Vancomycin 12.8 L Assessment and Plan (1) Sepsis: Status: Acute (2) Cellulitis of right thigh: Status: Acute Plan 41-year-old female with past medical history as mentioned above presents to the hospital with complaints of skin changes concerning for cellulitis Sepsis secondary to cellulitis of right thigh. Sepsis resolved meets criteria with tachycardia, leukocytosis - wbc count trending down, remains afebrile large area of involvement from knee to hip continue IV vancomycin blood cultures negative to date one more day of IV abx then oral Doxycycline for total 10 days Asthma, chronic controlled not in exacerbation continue home inhalers Morbid obesity BMI 70.7 Discussed importance of weight management as this may be contributing to worsening of other comorbidities DVT prophylaxis: Alex attending - Dr. Blake patient requires ongoing inpatient hospitalization for cellulitis requiring IV antibiotics Time Spent With Patient Time: Total time managing care of this patient today ____ minutes. Quality Stroke Does the patient have a stroke diagnosis?: No VTE Prior VTE?: No VTE Risk Level:: Medical - moderate - high VTE Device Contraindication: Treatment Not Indicated VTE Drug Contraindication: N/A - Med Ordered
[2022-03-20 17:40] LABS: Vancomycin Trough 14.1 mcg/mL (10.0-20.0)
--- NOTE | 2022-03-20 18:01 | HE.PHANOTE ---
Vancomycin Dosing Addendum Patients level came back today at 14.1 mg/L. Will continue this dose as trough is therapeutic. Next drawn after 2 doses to monitor level. Drawn 03/21 @1700. Predicted AUC 422 mg/L/hr. Renal function stable.
[2022-03-21 00:15] VITALS: RESP 18
[2022-03-21 03:37] VITALS: BP 131/60; PULSE 76; RESP 18; TEMP 36.7; O2SAT 97
[2022-03-21] MEDS: vancomycin HCL 1,500 MG in 0.9 % Sodium Chloride 500 ML 333.33 MG IV (06:02)
[2022-03-21] MEDS: diphenhydrAMINE HCL 25 MG CAPSULE 50 MG PO (06:17)
[2022-03-21 06:20] LABS: Creatinine Clr Calc Pharmacy 168.4; Estimated Glomerular Filt Rate > 60
[2022-03-21 08:00] VITALS: BP 112/53; PULSE 78; RESP 18; TEMP 36.6; O2SAT 94
[2022-03-21] MEDS: Albuterol Sulfate 90 MCG 8 GM INHALER 2 PUFF INHALE ×2 (08:08→12:23)
[2022-03-21] MEDS: Fluticasone/Vilanterol 200/25 BLST.W.DEV 1 PUFF INHALE (08:08)
[2022-03-21 08:11] VITALS: PULSE 89; RESP 18; O2SAT 95
[2022-03-21] MEDS: Enoxaparin Sodium 40 MG/0.4 ML SYRINGE SUBCUT (12:24)
[2022-03-21 12:29] VITALS: PULSE 84; RESP 18; O2SAT 95
--- NOTE | 2022-03-21 13:30 | PM.DS ---
DS: Providers Provider Date of Service: 03/21/22 Date of admission: 03/16/22 21:02 Primary care physician: Davey Allred MD Attending physician on discharge: Davis Blake Discharging clinician: Jennifer Huff DS: Diagnosis Discharge Diagnosis (1) Sepsis: Status: Acute (2) Cellulitis of right thigh: Status: Acute DS: Summary Hospital Course Hospital Course: HP as per admitting provider 41-year-old female with past medical history of lymphedema on the right leg, obesity, eczema, hypercholesterolemia, asthma peripheral vascular disease, obstructive sleep apnea, presents to the hospital with complaints of redness, swelling,? and pain in her right thigh.? Patient reports that she noticed skin changes about 2 days ago, she reports no fever, no chills, has no drainage of the site, has some nausea with no vomiting. no abdominal pain , or vomiting, no diarrhea constipation, no urinary symptoms and no lower extremity edema PE on arrival to the ED patient hemodynamically stable with a heart rate of 101 blood pressure stable Labs are significant for WBC count of 24.6, ESR of 38, CRP of 23, UA positive for leukocyte Estrace and WBC . Sepsis secondary to cellulitis of right thigh. Sepsis resolved large area of involvement from knee to hip Treated with IV vancomycin blood cultures negative to date continue augmentin for 10 more days total 14 day treatment Asthma, chronic controlled no exacerbation continue home inhalers Morbid obesity BMI 70.7 Discussed importance of weight management as this may be contributing to worsening of other comorbidities Time Spent with Patient Time attestation: Total time managing care of this patient today ____ minutes. Discharge coordination time: Greater than 30 minutes Quality: Safe Use of Opioids Does Pt have an Active Cancer Diagnosis on the Problem List?: No Quality: Stroke Does the patient have a stroke diagnosis?: No Physical Exam Vital Signs: Vital Signs: Last Vital Signs Temp 97.9 F 03/21/22 08:00 Pulse 84 03/21/22 12:29 Resp 18 03/21/22 12:29 BP 112/53 L 03/21/22 08:00 Pulse Ox 94 03/21/22 08:00 O2 Del Method 03/21/22 08:00 BMI result Body Mass Index 93.9 Appearing in no acute distress head is normocephalic atraumatic eyes pupils are PERRLA sclera is anicteric mouth throat mucous membranes are intact and moist neck is supple no lymphadenopathy, no JVD noted lung sounds are clear to auscultation heart regular rate rhythm, clear S1, S2 positive bowel sounds, abdomen is soft, nontender, obese neuro patient is alert x3, no focal deficits DS: Data Data Completed and Pending Labs on day of discharge: Laboratory Results - last 24 hr 03/20/22 03/21/22 17:15 05:28 Creatinine 0.75 Estim Creat Clear Calc 168.4 Estimated GFR > 60 Vancomycin Trough 14.1 Preliminary micro results at discharge 03/16/22 16:13 Blood Culture - Preliminary Blood - Venous No growth after 48 hours. 03/16/22 15:43 Blood Culture - Preliminary Blood - Venous No growth after 48 hours. Discharge Plan Discharge Anticipated Discharge Date/Time: 03/21/22 13:23 Patient Disposition: Home, Self-Care Discharge Diagnosis: Right thigh cellulitis Sepsis Referrals: Po,Davey Potter MD [Primary Care Provider] - 1 Week Discharge Medications: New amoxicillin-pot clavulanate 875-125 mg tablet 1 tab PO BID Qty: 20 0RF Continued meclizine 25 mg tablet 25 mg PO DAILY PRN (Reason: for dizziness) Qty: 14 11RF albuterol sulfate [Ventolin HFA] 90 mcg/actuation HFA aerosol inhaler 2 puff inhalation QID 90 Days Qty: 8.5 0RF betamethasone, augmented [Diprolene (augmented)] 0.05 % ointment 1 appl topical BID PRN (Reason: skin irritation) 14 Days Qty: 45 0RF cholecalciferol (vitamin D3) 1,250 mcg (50,000 unit) capsule 1,250 mcg PO TU fluticasone furoate-vilanterol 200-25 mcg/dose blister with device 1 inh inhalation DAILY 90 Days Qty: 3 3RF epinephrine [EpiPen 2-Jeremy] 0.3 mg/0.3 mL auto-injector 0.3 mg IM Q4H PRN (Reason: anaphylaxis) Qty: 2 0RF Discharge Orders: Discharge Order (Routine); Ordered 03/21/22 Ordered By: Jennifer Huff Diet: Advance to usual diet Activity on Discharge: As tolerated Stand Alone Forms: Patient Portal Discharge page Care Plan Goals: complete resolution of symptoms Health Concerns: Right thigh cellulitis Sepsis Plan of Treatment: Follow-up with primary care provider as needed Take all medications as prescribed May use warm compresses to right thigh for comfort Assessment: see discharge summary
--- NOTE | 2022-03-21 13:47 | MHC.CM.PN ---
HOME - SELF CARE RN AWARE OF PLAN. IMM 03/20 IN CHART
== END 2022-03-21 14:09 | disposition home or self-care (01) | DRG 872 ==
LOC: HO.ED 16:39 → HO.EDOVER 21:17 → HO.S3 03-18 12:57
PROVIDERS: Nurse Practitioner Family; Physician Assistant; Physician Assistant Medical; Admitting Provider Internal Medicine; Emergency Provider Emergency Medicine; PCP Internal Medicine; Visit Provider Nurse Practitioner Acute Care
DX: A41.9 Sepsis, unspecified organism (principal); L03.115 Cellulitis of right lower limb; N39.0 Urinary tract infection, site not specified; Z68.45 Body mass index [BMI] 70 or greater, adult; E78.00 Pure hypercholesterolemia, unspecified; E66.01 Morbid (severe) obesity due to excess calories; G47.33 Obstructive sleep apnea (adult) (pediatric); J45.20 Mild intermittent asthma, uncomplicated; Z20.822 Contact with and (suspected) exposure to COVID-19; Z91.041 Radiographic dye allergy status; Z91.013 Allergy to seafood; Z88.8 Allergy status to other drugs, medicaments and biological substances; Z79.51 Long term (current) use of inhaled steroids; Z79.899 Other long term (current) drug therapy
CPT/HCPCS: 36415; 80048; 80053; 80202; 81001; 81025; 82565; 83605; 83880; 85025; 85027; 85652; 86140; 87040; 87086; 87502; 87635; 94640; 94660; 96365; 96366; 96367; 99285; J1650; J2543; J3370; J3371

== ENCOUNTER → 2022-05-01 10:58 | Outpatient (BNVA) | payer MEDICARE, MEDICAID, SELFPAY | PROVIDERS: PCP Internal Medicine; Visit Provider Surgery | DX: L03.115 Cellulitis of right lower limb (principal); L03.90 Cellulitis, unspecified; L89.310 Pressure ulcer of right buttock, unstageable; L30.9 Dermatitis, unspecified; I89.0 Lymphedema, not elsewhere classified; R22.41 Localized swelling, mass and lump, right lower limb; R73.01 Impaired fasting glucose; F41.1 Generalized anxiety disorder; G47.33 Obstructive sleep apnea (adult) (pediatric) | CPT/HCPCS: 99202 ==

== ENCOUNTER 2022-05-04 11:48 | Outpatient (REF) | payer MEDICARE, MEDICAID, SELFPAY ==
--- NOTE | ~2022-05-04 | CT_ITS ---
EXAMINATION: CT LOWER LEG WITHOUT CONTRAST, RIGHT CLINICAL INFORMATION: Right femur edema. COMPARISON: Right femur radiographs dated 09/06/2021. TECHNIQUE: Contiguous axial CT images of the right lower leg were obtained without contrast. Sagittal and coronal reformats were provided and reviewed. FINDINGS: No acute fracture or dislocation. No significant joint space narrowing and marginal osteophytes. No concerning lytic or blastic osseous lesion. Prominent lateral skin thickening and subcutaneous edema. The lateral soft tissues extend peripherally beyond the imaged [id number]. No organized fluid collection or soft tissue mass in the visualized region of the right leg. The visualized muscles and tendons are grossly intact. Common evaluation significantly limited on CT examination. No significant right knee joint effusion. CT/CT lower leg RT wo IV con IMPRESSION: Prominent subcutaneous edema/stranding and skin thickening within the lateral soft tissues which extends peripherally beyond the imaged [id number]. Findings are consistent with cellulitis. No visualized fluid collection or abscess formation. More peripheral abscess formation cannot be excluded.
== END 2022-05-04 11:49 | disposition home or self-care (01) ==
LOC: HO.CT 11:48
PROVIDERS: PCP Internal Medicine; Visit Provider Surgery
DX: D17.23 Benign lipomatous neoplasm of skin and subcutaneous tissue of right leg (principal); D17.24 Benign lipomatous neoplasm of skin and subcutaneous tissue of left leg; I89.0 Lymphedema, not elsewhere classified; L03.115 Cellulitis of right lower limb; L89.310 Pressure ulcer of right buttock, unstageable; R60.0 Localized edema
CPT/HCPCS: 73700

== ENCOUNTER → 2022-05-25 13:16 | Outpatient (BNVA) | payer MEDICARE, MEDICAID, SELFPAY | PROVIDERS: PCP Internal Medicine; Visit Provider Surgery | DX: I89.0 Lymphedema, not elsewhere classified (principal); R73.01 Impaired fasting glucose; F41.1 Generalized anxiety disorder; G47.33 Obstructive sleep apnea (adult) (pediatric) | CPT/HCPCS: 99212 ==

== ENCOUNTER 2022-10-09 10:03 | Outpatient (AMB) | payer MEDICARE, MEDICAID, SELFPAY ==
--- NOTE | 2022-10-09 10:05 | MHC.PC.OV ---
Vital Signs 10/09/22 10:06 Height 4 ft 11 in BMI Reason not done Patient refused/unable Blood Pressure Location Lt brachial Position Sitting Pulse Source Pulse Oximeter Oxygen Delivery Method Room Air Intake Visit Reasons: lymphedema, asthma Allergies bacitracin [Bacitracin] Allergy (Unknown, Verified 10/09/22 10:06) UNKNOWN budesonide [Symbicort] Allergy (Unknown, Verified 10/09/22 10:06) Unknown cephalexin [Keflex] Allergy (Unknown, Verified 10/09/22 10:06) Unknown egg yolk Allergy (Unknown, Verified 10/09/22 10:06) UNKNOWN Egg/Pro Allergy (Unknown, Verified 10/09/22 10:06) Unknown formoterol [Symbicort] Allergy (Unknown, Verified 10/09/22 10:06) Unknown Iodinated Contrast Media [IV Dye, Iodine Containing] Allergy (Unknown, Verified 10/09/22 10:06) BY SKIN TEST metoclopramide [From Reglan] Allergy (Unknown, Verified 10/09/22 10:06) Unknown monosodium glutamate Allergy (Unknown, Verified 10/09/22 10:06) PER MD peanut [Peanut] Allergy (Unknown, Verified 10/09/22 10:06) UNKNOWN shellfish derived Allergy (Unknown, Verified 10/09/22 10:06) Unknown Medication List - Last Reconciled 10/09/22 by Davey Allred MD albuterol sulfate 90 mcg/actuation (Ventolin HFA) 2 puffs inhalation QID 90 days betamethasone, augmented 0.05 % (Diprolene (augmented)) 1 appl topical BID PRN 14 days bupropion HCl (Wellbutrin SR) 100 mg PO BID cholecalciferol (vitamin D3) 1,250 mcg PO TU epinephrine (EpiPen 2-Jeremy) 0.3 mg (0.3 mL) IM Q4H PRN fluticasone furoate-vilanterol 200-25 mcg/dose 1 inh inhalation DAILY 90 days meclizine 25 mg PO DAILY PRN semaglutide 0.25 mg (0.4 mL) subcut QWEEK semaglutide 0.5 mg (0.8 mL) subcut QWEEK Tobacco use date assessed: 04/17/22 Dental Screening Dental Screen Date: 10/09/22 Did you have a dental visit in the last 12 months?: Yes Did you have a dental problem in the last 6 months where you did not have access to dental care?: No Was dental information given to patient?: Patient has dentist HPI lymphedema, asthma HPI Details 42-year-old morbidly obese female with lymphedema hypercholesterolemia asthma GERD in general as anxiety disorder last seen in June 2022. Patient has been sent to the lymphedema clinic. going once a week, presently no infection. Bariatric surgery has held off from any procedure to let lymphedema resolved 1st. Patient was advised to be referred to lymphedema Clinic in [facility] in [place]. Also patient is asking for prescription for the semaglutide to help lose the weight. As for anxiety patient continues to see the counseling and was advised to ask for prescription for Wellbutrin. Patient is here for follow-up [facility] Medical History (Updated 07/03/22 @ 12:00 by Davey Allred MD) Allergic rhinitis Anxiety and depression Asthma Bilateral thigh pain Cellulitis Cellulitis of right thigh COVID-19 virus infection Eczematous dermatitis Elevated fasting glucose Foot fracture, right GERD (gastroesophageal reflux disease) Hypercholesterolemia Leg wound, right Lipoma of both lower extremities Lymphedema Mass of right thigh Morbid obesity with BMI of 40.0-44.9, adult Obesity Obstructive sleep apnea Peripheral vascular disease Pressure sore on buttocks, right, unstageable Pulmonary hypertension Right leg pain Shortness of breath on exertion Swelling of thigh Vitamin D deficiency Surgical History H/O right breast biopsy Family History Father Lymphoma CVD (cardiovascular disease) Mother CVD (cardiovascular disease) Hypertension Colon cancer Glaucoma Brother Leukemia Paternal Aunt Breast cancer Paternal Uncle Pancreatic cancer Other Mental health disorder Social History Household Members: Family Housing: Apartment Do you presently have visiting nurse or other home services: No Alcohol intake: never Patient Tobacco Use Status: Never used Tobacco e-Cigarette/Vaping Use: Never Used Second Hand Smoke Exposure: No service: No Current occupational status: employed Cognitive needs: No Hearing needs: No Vision needs: Yes Questionnaire PHQ-9 Over the last 2 weeks, how often have you been bothered by any of the following problems? 1. Little interest or pleasure in doing things: more than half the days (Pt is on depression meds.) 2. Feeling down, depressed, or hopeless: more than half the days 3. Trouble falling or staying asleep, or sleeping too much: not at all 4. Feeling tired or having little energy: not at all 5. Poor appetite or overeating: not at all 6. Feeling bad about yourself - or that you are a failure or have let yourself or your family down: not at all 7. Trouble concentrating on things, such as reading the newspaper or watching television: not at all 8. Moving or speaking so slowly that other people could have noticed. Or the opposite - being so fidgety or restless that you have been moving around a lot more than usual: not at all 9. Thoughts that you would be better off or of hurting yourself in some way: not at all Total score: 4 Depression Screening Interpretation: Positive Source: Developed by Drs. Mateus Alston, Lillian Sousa, Bayron Richards and colleagues, with an educational padmini from [employer]. Thrive Questionnaire Date Thrive assessed: 04/06/22 AUDIT C Alcohol Use Questionnaire (AUDIT-C) 1. How often do you have a drink containing alcohol?: Never 3. How often do you have six or more drinks on one occasion?: Never Total Score: 0 Score Reviewed/Action Taken: No LAKESHA-7 AMB Questionnaire LAKESHA-7 Date LAKESHA - 7 assessed: 10/09/22 Feeling nervous, anxious, or on edge: 3 = Nearly every day Not being able to stop or control worryin = More than half the days Worrying too much about different things: 2 = More than half the days Trouble relaxin = Not at all Being so restless that it is hard to sit still: 0 = Not at all Becoming easily annoyed or irritable: 0 = Not at all Feeling afraid as if something awful might happen: 0 = Not at all Total LAKESHA-7 score (0-4 normal; 5-9 mild; 10-14 moderate; 15-21 severe): 7 Source: Developed by Drs. Mateus Alston, Lillian Sousa, Bayron Richards and colleagues, with an educational padmini from [employer]. Physical exam (Primary Care) Vital Signs: Oxygen Delivery Method Room Air 10/09/22 10:06 Care Plan Goal for BP management: Severe enlargement of bilateral hips thighs and legs. Tobacco/Smoking Status: Tobacco use Status Tobacco use date assessed 04/17/22 10/09/22 10:11 Patient Tobacco Use Status Never used Tobacco 10/09/22 10:11 e-Cigarette/Vaping Use Never Used 10/09/22 10:11 PHQ-9: PHQ-9 Score PHQ-9: Total score 4 10/09/22 10:11 Depression Screening Interpretation: Positive Thrive Assessment: Date of Thrive Assessment Date Thrive assessed 04/06/22 10/09/22 10:11 Const General: alert; No acute distress Eyes Conjunctivae: conjunctivae normal Resp Auscultation: clear to auscultation bilaterally Cardio Rate: regular rate Rhythm: regular rhythm GI Inspection: Yes normal to inspection Extrem General: Yes normal to inspection and No edema Assessment and Plan Assessment & Plan (1) Body mass index [BMI] 70 or greater, adult: Code(s): Z68.45 - Body mass index [BMI] 70 or greater, adult Plan: Patient is placed on hold due to the lymphedema. (2) Lymphedema: Code(s): I89.0 - Lymphedema, not elsewhere classified Plan: Patient was sent to lymphedema clinic but has been advised lymphedema clinic in [place] (3) Generalized anxiety disorder: Comment: [facility] Counseling April 2019 private counselor March 2021 Code(s): F41.1 - Generalized anxiety disorder Plan: Continue with counseling and therapy. Has been advised Wellbutrin prescription sent (4) Asthma: Code(s): J45.909 - Unspecified asthma, uncomplicated Plan: Continue with the inhaler and follow up with Pulmonary Orders: Referrals Lymphedema Clinic Referral I89.0 - Lymphedema, not elsewhere classified Medications: New semaglutide for 4 weeks 0.25 mg (0.4 mL) subcut QWEEK 3 mL 0RF Z68.45 - Body mass index [BMI] 70 or greater, adult semaglutide 0.5 mg (0.8 mL) subcut QWEEK 3 mL 0RF Z68.45 - Body mass index [BMI] 70 or greater, adult bupropion HCl (Wellbutrin SR) 100 mg PO BID 60 tabs 2RF F41.1 - Generalized anxiety disorder Coding Level of Care Code Est Pt Level 4 (67318) Diagnoses Body mass index [BMI] 70 or greater, adult Z68.45 Lymphedema I89.0 Generalized anxiety disorder F41.1 Asthma J45.909 Additional Codes PHQ-9 - 60226 - PHQ-9 Billing: Y ([id number])
== END 2022-10-09 10:31 | disposition home or self-care (01) ==
PROVIDERS: Visit Provider Internal Medicine
DX: J45.909 Unspecified asthma, uncomplicated (principal); Z68.45 Body mass index [BMI] 70 or greater, adult; E66.01 Morbid (severe) obesity due to excess calories; F41.1 Generalized anxiety disorder; I89.0 Lymphedema, not elsewhere classified
CPT/HCPCS: 99214

== ENCOUNTER 2023-02-15 14:52 | Outpatient (AMB) | payer MEDICARE, MEDICAID, SELFPAY ==
--- NOTE | 2023-02-15 14:53 | MHC.PC.OV ---
Intake Visit Reasons: Ear infection Allergies bacitracin [Bacitracin] Allergy (Unknown, Verified 02/15/23 14:53) UNKNOWN budesonide [Symbicort] Allergy (Unknown, Verified 02/15/23 14:53) Unknown cephalexin [Keflex] Allergy (Unknown, Verified 02/15/23 14:53) Unknown egg yolk Allergy (Unknown, Verified 02/15/23 14:53) UNKNOWN Egg/Pro Allergy (Unknown, Verified 02/15/23 14:53) Unknown formoterol [Symbicort] Allergy (Unknown, Verified 02/15/23 14:53) Unknown Iodinated Contrast Media [IV Dye, Iodine Containing] Allergy (Unknown, Verified 02/15/23 14:53) BY SKIN TEST metoclopramide [From Reglan] Allergy (Unknown, Verified 02/15/23 14:53) Unknown monosodium glutamate Allergy (Unknown, Verified 02/15/23 14:53) PER peanut [Peanut] Allergy (Unknown, Verified 02/15/23 14:53) UNKNOWN shellfish derived Allergy (Unknown, Verified 02/15/23 14:53) Unknown Medication List - Last Reconciled 02/15/23 by Davey Allred MD albuterol sulfate 90 mcg/actuation (Ventolin HFA) 2 puffs inhalation QID 90 days betamethasone, augmented 0.05 % (Diprolene (augmented)) 1 appl topical BID PRN 14 days bupropion HCl (Wellbutrin SR) 100 mg PO BID cholecalciferol (vitamin D3) 1,250 mcg PO TU epinephrine (EpiPen 2-Jeremy) 0.3 mg (0.3 mL) IM Q4H PRN fluticasone furoate-vilanterol 200-25 mcg/dose 1 inh inhalation DAILY 90 days meclizine 25 mg PO DAILY PRN ceiprxqq-pfvnfjqur-XG 3.5-10,000-1 mg/mL-unit/mL-% 4 drps otic (ear) left Q8H 10 days semaglutide 0.5 mg (0.736 mL) subcut QWEEK semaglutide 0.25 mg (0.368 mL) subcut QWEEK Tobacco use date assessed: 04/17/22 Dental Screening Dental Screen Date: 02/15/23 Did you have a dental visit in the last 12 months?: Yes Did you have a dental problem in the last 6 months where you did not have access to dental care?: No Was dental information given to patient?: Patient has dentist HPI Ear infection HPI Details ct [id number] morbidly obese female with asthma and generalized anxiety disorder coming in for Telehealth for an acute problem L ear pain 1.5 days , , mild congestion. [facility] Medical History (Updated 02/15/23 @ 18:36 by Davey Allred MD) Mass of right thigh Lipoma of both lower extremities Cellulitis of right thigh Cellulitis Lymphedema Pressure sore on buttocks, right, unstageable Bilateral thigh pain Elevated fasting glucose Shortness of breath on exertion COVID-19 virus infection Leg wound, right Morbid obesity with BMI of 40.0-44.9, adult Swelling of thigh Foot fracture, right Eczematous dermatitis Anxiety and depression Obstructive sleep apnea Pulmonary hypertension Obesity Hypercholesterolemia Vitamin D deficiency Peripheral vascular disease Allergic rhinitis Right leg pain GERD (gastroesophageal reflux disease) Asthma Surgical History H/O right breast biopsy Family History Father Lymphoma CVD (cardiovascular disease) Mother CVD (cardiovascular disease) Hypertension Colon cancer Glaucoma Brother Leukemia Paternal Aunt Breast cancer Paternal Uncle Pancreatic cancer Other Mental health disorder Social History Household Members: Family Housing: Apartment Do you presently have visiting nurse or other home services: No Alcohol intake: never Patient Tobacco Use Status: Never used Tobacco e-Cigarette/Vaping Use: Never Used Second Hand Smoke Exposure: No service: No Current occupational status: employed Cognitive needs: No Hearing needs: No Vision needs: Yes Questionnaire PHQ-9 Over the last 2 weeks, how often have you been bothered by any of the following problems? 1. Little interest or pleasure in doing things: more than half the days (Pt is on depression meds.) 2. Feeling down, depressed, or hopeless: more than half the days 3. Trouble falling or staying asleep, or sleeping too much: not at all 4. Feeling tired or having little energy: not at all 5. Poor appetite or overeating: not at all 6. Feeling bad about yourself - or that you are a failure or have let yourself or your family down: not at all 7. Trouble concentrating on things, such as reading the newspaper or watching television: not at all 8. Moving or speaking so slowly that other people could have noticed. Or the opposite - being so fidgety or restless that you have been moving around a lot more than usual: not at all 9. Thoughts that you would be better off or of hurting yourself in some way: not at all Total score: 4 Depression Screening Interpretation: Positive Depression Screening Done: Yes Source: Developed by Drs. Mateus Alston, Lillian Sousa, Bayron Richards and colleagues, with an educational padmini from [employer]. Thrive Questionnaire Date Thrive assessed: 04/06/22 AUDIT C Alcohol Use Questionnaire (AUDIT-C) 1. How often do you have a drink containing alcohol?: Never 3. How often do you have six or more drinks on one occasion?: Never Total Score: 0 Score Reviewed/Action Taken: No LAKESHA-7 AMB Questionnaire LAKESHA-7 Date LAKESHA - 7 assessed: 10/09/22 Source: Developed by Drs. Mateus Alston, Lillian Sousa, Bayron Richards and colleagues, with an educational padmiin from [employer]. Physical exam (Primary Care) Tobacco/Smoking Status: Tobacco use Status Tobacco use date assessed 04/17/22 02/15/23 14:54 Patient Tobacco Use Status Never used Tobacco 02/15/23 14:54 e-Cigarette/Vaping Use Never Used 02/15/23 14:54 PHQ-9: PHQ-9 Score PHQ-9: Total score 4 02/15/23 17:43 Depression Screening Interpretation: Positive Thrive Assessment: Date of Thrive Assessment Date Thrive assessed 04/06/22 02/15/23 14:54 Telehealth Telehealth Location of provider rendering services: practice address Location of patient: address on file Patient Identification confirmed using: Name, : Yes Telehealth method: video (Android ) Patient verbally consented to treatment: Yes Patient verbally consented to billing insurance company: Yes Patient informed of any privacy concerns related to visit: Yes Minutes spent on Phone/Video with Pt.: 15 Assessment and Plan Assessment & Plan (1) Left ear pain: Code(s): H92.02 - Otalgia, left ear Plan: Antibiotic ear drop sent Medications: New ioxsndro-vfvyrjskk-CK 3.5-10,000-1 mg/mL-unit/mL-% 4 drps otic (ear) left Q8H 10 mL 0RF 10 days H92.02 - Otalgia, left ear Coding Level of Care Code Tele Est Pt Level 3 (03606) Diagnoses Left ear pain H92.02 Additional Codes PHQ-9 - 32353 - PHQ-9 Billing: ([id number])
== END 2023-02-15 16:31 | disposition home or self-care (01) ==
LOC: HO.HMGH 14:52
PROVIDERS: PCP Internal Medicine; Visit Provider Internal Medicine
DX: H92.02 Otalgia, left ear (principal)
CPT/HCPCS: 99213

== ENCOUNTER 2023-04-18 15:18 | Outpatient (AMB) | payer MEDICARE, MEDICAID, SELFPAY ==
[2023-04-18 15:20] VITALS: BP 130/82; PULSE 84; O2SAT 98
--- NOTE | 2023-04-18 15:20 | A.OFFPC_ITS ---
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 Required: No Allergies bacitracin [Bacitracin] Allergy (Unknown, Verified 04/18/23 15:25) UNKNOWN budesonide [Symbicort] Allergy (Unknown, Verified 04/18/23 15:25) Unknown cephalexin [Keflex] Allergy (Unknown, Verified 04/18/23 15:25) Unknown egg yolk Allergy (Unknown, Verified 04/18/23 15:25) UNKNOWN Egg/Pro Allergy (Unknown, Verified 04/18/23 15:25) Unknown formoterol [Symbicort] Allergy (Unknown, Verified 04/18/23 15:25) Unknown Iodinated Contrast Media [IV Dye, Iodine Containing] Allergy (Unknown, Verified 04/18/23 15:25) BY SKIN TEST metoclopramide [From Reglan] Allergy (Unknown, Verified 04/18/23 15:25) Unknown monosodium glutamate Allergy (Unknown, Verified 04/18/23 15:25) PER peanut [Peanut] Allergy (Unknown, Verified 04/18/23 15:25) UNKNOWN shellfish derived Allergy (Unknown, Verified 04/18/23 15:25) Unknown Medication List - Last Reconciled 04/18/23 by Davey Allred MD betamethasone, augmented 0.05 % (Diprolene (augmented)) 1 appl topical BID PRN 14 days bupropion HCl (Wellbutrin SR) 100 mg PO BID cholecalciferol (vitamin D3) 1,250 mcg PO TU epinephrine (EpiPen 2-Jeremy) 0.3 mg (0.3 mL) IM Q4H PRN fluticasone furoate-vilanterol 200-25 mcg/dose 1 inh inhalation DAILY 90 days meclizine 25 mg PO DAILY PRN montelukast (Singulair) 10 mg PO BEDTIME semaglutide 0.5 mg (0.736 mL) subcut QWEEK semaglutide 0.25 mg (0.368 mL) subcut QWEEK Ventolin HFA 90 mcg/actuation (albuterol sulfate) 2 puffs inhalation QID 90 days NS Tobacco use date assessed: 04/18/23 HPI follow up reschedule HPI Details 42-year-old morbidly obese female with a sthma generalized anxiety disorder obstructive sleep apnea GERD and hypercholesterolemia last seen in February 2023 for ear pain. Patient's mammogram is due. PAtient complains still of having R leg swelling and sent to surgeon first but has lymphedema and sent to clinic but insurance ran out and so was stopped no bilateral fat on the leg. meanwhile wedight loss med injection not covered and wants to try for this. [facility] Medical History (Updated 04/18/23 @ 16:08 by Davey Allred MD) Mass of right thigh Lipoma of both lower extremities Cellulitis of right thigh Cellulitis Lymphedema Pressure sore on buttocks, right, unstageable Bilateral thigh pain Elevated fasting glucose Shortness of breath on exertion COVID-19 virus infection Leg wound, right Morbid obesity with BMI of 40.0-44.9, adult Swelling of thigh Foot fracture, right Eczematous dermatitis Anxiety and depression Obstructive sleep apnea Pulmonary hypertension Obesity Hypercholesterolemia Vitamin D deficiency Peripheral vascular disease Allergic rhinitis Right leg pain GERD (gastroesophageal reflux disease) Asthma Surgical History H/O right breast biopsy Family History Father Lymphoma CVD (cardiovascular disease) Mother CVD (cardiovascular disease) Hypertension Colon cancer Glaucoma Brother Leukemia Paternal Aunt Breast cancer Paternal Uncle Pancreatic cancer Other Mental health disorder Social History Household Members: Family Housing: Apartment Do you presently have visiting nurse or other home services: No Alcohol intake: never Patient Tobacco Use Status: Never used Tobacco e-Cigarette/Vaping Use: Never Used Second Hand Smoke Exposure: No service: No Current occupational status: employed Cognitive needs: No Hearing needs: No Vision needs: Yes Questionnaire Thrive Questionnaire Date Thrive assessed: 04/18/23 AUDIT C Alcohol Use Questionnaire (AUDIT-C) 1. How often do you have a drink containing alcohol?: Never 3. How often do you have six or more drinks on one occasion?: Never Total Score: 0 Score Reviewed/Action Taken: No LAKESHA-7 AMB Questionnaire LAKESHA-7 Date LAKESHA - 7 assessed: 04/18/23 Source: Developed by Drs. Mateus Alston, Lillian Sousa, Bayron Richards and colleagues, with an educational padmini from [employer]. Physical exam (Primary Care) Vital Signs: Last Vital Signs Pulse 84 04/18/23 15:20 BP 130/82 04/18/23 15:20 Pulse Ox 98 04/18/23 15:20 Oxygen Delivery Method Room Air 04/18/23 15:20 Tobacco/Smoking Status: Tobacco use Status Tobacco use date assessed 04/18/23 04/18/23 15:21 Patient Tobacco Use Status Never used Tobacco 04/18/23 15:21 e-Cigarette/Vaping Use Never Used 04/18/23 15:21 Thrive Assessment: Date of Thrive Assessment Date Thrive assessed 04/18/23 04/18/23 15:21 Const General: alert; No acute distress Eyes Conjunctivae: conjunctivae normal Resp Auscultation: clear to auscultation bilaterally Cardio Rate: regular rate Rhythm: regular rhythm GI Inspection: Yes normal to inspection Extrem General: Yes normal to inspection and No edema Assessment and Plan Assessment & Plan (1) Asthma: Code(s): J45.909 - Unspecified asthma, uncomplicated Plan: Continue with the inhalers (2) GERD (gastroesophageal reflux disease): Code(s): K21.9 - Gastro-esophageal reflux disease without esophagitis Plan: Avoid the foods that causes that usually spicy foods, tomato products, juices, coffee, soda and foods that your sensitive to. After eating do not lie down, allow 3-4 hours before in lie down. And keep the head of bed above 30 degrees to avoid the acid from going up. (3) Hypercholesterolemia: Code(s): E78.00 - Pure hypercholesterolemia, unspecified Plan: Avoid fried foods, chicken skin, eggs, butter margarine, pastries and meat. Be it pork or beef they have a lot of cholesterol LDL goal of less than 130 and triglyceride of less than 150 (4) Obstructive sleep apnea: Code(s): G47.33 - Obstructive sleep apnea (adult) (pediatric) Plan: Discussion about CPAP and treatment (5) Generalized anxiety disorder: Comment: [facility] Counseling April 2019 private counselor March 2021 Code(s): F41.1 - Generalized anxiety disorder Plan: Continue with counseling and therapy (6) Morbidly obese: Code(s): E66.01 - Morbid (severe) obesity due to excess calories Plan: Diet and exercise. trial of treating with mounjaro (7) Prediabetes: Code(s): R73.03 - Prediabetes Plan: Mounsyed sent in Medications: New montelukast (Singulair) 10 mg PO BEDTIME 90 tabs 1RF J45.909 - Unspecified asthma, uncomplicated tirzepatide (Mounjaro) 2.5 mg (0.5 mL) subcut QWEEK 4 weeks 2 mL 4RF E66.01 - Morbid (severe) obesity due to excess calories, R73.03 - Prediabetes Changed From albuterol sulfate 90 mcg/actuation (Ventolin HFA) 2 puffs inhalation QID 90 days 8.5 grams 3RF R73.01 - Impaired fasting glucose To Ventolin HFA 90 mcg/actuation (albuterol sulfate) 2 puffs inhalation QID 90 days 18 grams 1RF NS R73.01 - Impaired fasting glucose Discontinued semaglutide Discontinued Reason: Doctor's Order 0.5 mg (0.736 mL) subcut QWEEK 3 mL 0RF Z68.45 - Body mass index [BMI] 70 or greater, adult semaglutide for 4 weeks Discontinued Reason: Insurance Denied 0.25 mg (0.368 mL) subcut QWEEK 3 mL 0RF Z68.45 - Body mass index [BMI] 70 or greater, adult Coding Level of Care Code Est Pt Level 4 (22088) Diagnoses Asthma J45.909 GERD (gastroesophageal reflux disease) K21.9 Hypercholesterolemia E78.00 Obstructive sleep apnea G47.33 Generalized anxiety disorder F41.1 Morbidly obese E66.01 Prediabetes R73.03
== END 2023-04-18 16:14 | disposition home or self-care (01) ==
PROVIDERS: PCP Internal Medicine; Visit Provider Internal Medicine
DX: J45.909 Unspecified asthma, uncomplicated (principal); K21.9 Gastro-esophageal reflux disease without esophagitis; E66.01 Morbid (severe) obesity due to excess calories; E78.00 Pure hypercholesterolemia, unspecified; G47.33 Obstructive sleep apnea (adult) (pediatric); F41.1 Generalized anxiety disorder; R73.03 Prediabetes
CPT/HCPCS: 99214

== ENCOUNTER 2023-06-12 14:29 | Outpatient (AMB) | payer MEDICARE, MEDICAID, SELFPAY ==
[2023-06-12 14:32] VITALS: BP 128/82; PULSE 76; O2SAT 97
--- NOTE | 2023-06-12 14:32 | A.OFFPC_ITS ---
Vital Signs 06/12/23 14:32 Height 4 ft 11 in BMI Reason not done Patient refused/unable BP 128/82 Blood Pressure Location Lt radial Position Sitting Pulse 76 Pulse Source Pulse Oximeter Pulse Oximetry (%) 97 Oxygen Delivery Method Room Air Intake Visit Reasons: Morbid OBESity Psychological Assistant Required: No Allergies bacitracin [Bacitracin] Allergy (Unknown, Verified 06/12/23 14:32) UNKNOWN budesonide [Symbicort] Allergy (Unknown, Verified 06/12/23 14:32) Unknown cephalexin [Keflex] Allergy (Unknown, Verified 06/12/23 14:32) Unknown egg yolk Allergy (Unknown, Verified 06/12/23 14:32) UNKNOWN Egg/Pro Allergy (Unknown, Verified 06/12/23 14:32) Unknown formoterol [Symbicort] Allergy (Unknown, Verified 06/12/23 14:32) Unknown Iodinated Contrast Media [IV Dye, Iodine Containing] Allergy (Unknown, Verified 06/12/23 14:32) BY SKIN TEST metoclopramide [From Reglan] Allergy (Unknown, Verified 06/12/23 14:32) Unknown monosodium glutamate Allergy (Unknown, Verified 06/12/23 14:32) PER MD peanut [Peanut] Allergy (Unknown, Verified 06/12/23 14:32) UNKNOWN shellfish derived Allergy (Unknown, Verified 06/12/23 14:32) Unknown montelukast [From Singulair] Adverse Reaction (Mild, Verified 06/12/23 14:44) Anxiety Medication List - Last Reconciled 06/12/23 by Davey Allred, betamethasone, augmented 0.05 % (Diprolene (augmented)) 1 appl topical BID PRN 14 days bupropion HCl (Wellbutrin SR) 100 mg PO BID cholecalciferol (vitamin D3) 1,250 mcg PO TU epinephrine (EpiPen 2-Jeremy) 0.3 mg (0.3 mL) IM Q4H PRN fluticasone furoate-vilanterol 200-25 mcg/dose 1 inh inhalation DAILY 90 days fluticasone propionate 50 mcg/actuation (Flonase Allergy Relief) 2 sprays intranasal DAILY meclizine 25 mg PO DAILY PRN tirzepatide (weight loss) (Zepbound) 2.5 mg (0.5 mL) subcut QWEEK 4 weeks Ventolin HFA 90 mcg/actuation (albuterol sulfate) 2 puffs inhalation QID 90 days NS Tobacco use date assessed: 06/12/23 Dental Screening Dental Screen Date: 06/12/23 HPI Morbid OBESity HPI Details 42-year-old morbidly obese female with a sthma GERD hypercholesterolemia obstructive sleep apnea generalized anxiety disorder coming in for follow-up last seen April 2023 [facility] Medical History (Updated 04/18/23 @ 16:08 by Davey Allred MD) Mass of right thigh Lipoma of both lower extremities Cellulitis of right thigh Cellulitis Lymphedema Pressure sore on buttocks, right, unstageable Bilateral thigh pain Elevated fasting glucose Shortness of breath on exertion COVID-19 virus infection Leg wound, right Morbid obesity with BMI of 40.0-44.9, adult Swelling of thigh Foot fracture, right Eczematous dermatitis Anxiety and depression Obstructive sleep apnea Pulmonary hypertension Obesity Hypercholesterolemia Vitamin D deficiency Peripheral vascular disease Allergic rhinitis Right leg pain GERD (gastroesophageal reflux disease) Asthma Surgical History (Reviewed 05/25/22 @ 13:58 by Jeffrey Villegas MD, [employer], [facility] [place] H/O right breast biopsy Family History Father Lymphoma CVD (cardiovascular disease) Mother CVD (cardiovascular disease) Hypertension Colon cancer Glaucoma Brother Leukemia Paternal Aunt Breast cancer Paternal Uncle Pancreatic cancer Other Mental health disorder Social History Household Members: Family Housing: Apartment Do you presently have visiting nurse or other home services: No Alcohol intake: never Patient Tobacco Use Status: Never used Tobacco e-Cigarette/Vaping Use: Never Used Second Hand Smoke Exposure: No service: No Current occupational status: employed Cognitive needs: No Hearing needs: No Vision needs: Yes Questionnaire Thrive Questionnaire Date Thrive assessed: 04/18/23 AUDIT C Alcohol Use Questionnaire (AUDIT-C) 1. How often do you have a drink containing alcohol?: Never 3. How often do you have six or more drinks on one occasion?: Never Total Score: 0 Score Reviewed/Action Taken: No LAKESHA-7 AMB Questionnaire LAKESHA-7 Date LAKESHA - 7 assessed: 04/18/23 Source: Developed by Drs. Mateus Alston, LillianBayron Townsend and colleagues, with an educational padmini from [employer]. Physical exam (Primary Care) Vital Signs: Last Vital Signs Pulse 76 06/12/23 14:32 BP 128/82 06/12/23 14:32 Pulse Ox 97 06/12/23 14:32 Oxygen Delivery Method Room Air 06/12/23 14:32 Tobacco/Smoking Status: Tobacco use Status Tobacco use date assessed 06/12/23 06/12/23 14:33 Patient Tobacco Use Status Never used Tobacco 06/12/23 14:33 e-Cigarette/Vaping Use Never Used 06/12/23 14:33 Thrive Assessment: Date of Thrive Assessment Date Thrive assessed 04/18/23 06/12/23 14:33 Const General: alert; No acute distress Eyes Conjunctivae: conjunctivae normal Resp Auscultation: clear to auscultation bilaterally Cardio Rate: regular rate Rhythm: regular rhythm GI Inspection: Yes normal to inspection Extrem General: Yes normal to inspection and No edema Assessment and Plan Assessment & Plan (1) Morbidly obese: Code(s): E66.01 - Morbid (severe) obesity due to excess calories Plan: Diet and exercise. had a long discussion with the patient regarding changes in her diet as well as exercise. Discussion of the type of food discussion about timing of exercises. (2) GERD (gastroesophageal reflux disease): Code(s): K21.9 - Gastro-esophageal reflux disease without esophagitis Plan: Avoid the foods that causes that usually spicy foods, tomato products, juices, coffee, soda and foods that your sensitive to. After eating do not lie down, allow 3-4 hours before in lie down. And keep the head of bed above 30 degrees to avoid the acid from going up. (3) Asthma: Code(s): J45.909 - Unspecified asthma, uncomplicated Plan: Continue with inhalers. Patient did not fine montelukast as helpful. (4) Hypercholesterolemia: Code(s): E78.00 - Pure hypercholesterolemia, unspecified Plan: Avoid fried foods, chicken skin, eggs, butter margarine, pastries and meat. Be it pork or beef they have a lot of cholesterol Medications: New fluticasone propionate 50 mcg/actuation (Flonase Allergy Relief) administer into each nostril 2 sprays intranasal DAILY 16 grams 11RF Coding Level of Care Code Est Pt Level 4 (42276) Diagnoses Morbidly obese E66.01 GERD (gastroesophageal reflux disease) K21.9 Asthma J45.909 Hypercholesterolemia E78.00
== END 2023-06-12 15:43 | disposition home or self-care (01) ==
PROVIDERS: PCP Internal Medicine; Visit Provider Internal Medicine
DX: K21.9 Gastro-esophageal reflux disease without esophagitis (principal); E66.01 Morbid (severe) obesity due to excess calories; J45.909 Unspecified asthma, uncomplicated; E78.00 Pure hypercholesterolemia, unspecified
CPT/HCPCS: 99214

== ENCOUNTER 2023-07-02 21:14 | Inpatient (IN) | payer MEDICARE, MEDICAID, SELFPAY ==
--- NOTE | ~2023-07-02 | US_ITS ---
EXAMINATION: US VENOUS ULTRASOUND WITH DOPPLER LOWER EXTREMITY, RIGHT CLINICAL INFORMATION: Swelling and pain COMPARISON: 02/15/2020 TECHNIQUE: Ultrasound of the deep veins is performed from the hip to the calf with compression sonography and color and pulse Doppler assessment. Spectral analysis with color-flow imaging is performed. FINDINGS: Per technologist report, performance of the exam was limited due to body habitus and edema. There is normal venous compression and respiratory variation and augmented flow. The visualized common femoral vein, superficial femoral vein, profunda femoral vein, popliteal vein, and the trifurcation region shows no evidence of deep venous thrombosis. There is no significant popliteal fossa cyst. If the patient's symptoms persist, followup ultrasound in 5 days 7 days might be of value to exclude proximal propagation from a non-visualized calf vein. US/US venous duplex LE RT IMPRESSION: No DVT demonstrated in the right lower extremity.
[2023-07-02 21:31] VITALS: BP 134/70; PULSE 93; RESP 16; TEMP 36.5; O2SAT 98; BMI 90.3
[2023-07-02 22:14] LABS: MANUAL DIFF FLAG NO
[2023-07-02 22:15] LABS: Basophils Absolute Auto 0.1 X10*3/uL (0.0-0.2); Basophils Percent Auto 0.4 % (0-2); Eosinophils Absolute Auto 0.2 X10*3/uL (0.0-0.4); Eosinophils Percent Auto 1.6 % (0-4); Hematocrit 38.4 % (37.0-47.0); Hemoglobin 12.1 g/dl (12.0-16.0); Imm Gran Abs Auto 0.07 X10*3/uL (0.00-0.03); Imm Gran Pct Auto 0.5 % (0.0-0.4); Lymphocytes Absolute Auto 1.9 X10*3/uL (1.2-4.9); Mean Corpuscular HGB Conc 31.5 g/dl (31.0-35.0); Mean Corpuscular Volume 79.3 fL (80.0-98.0); Mean Platelet Volume 10.7 fL (9.4-12.3); Monocytes Absolute Auto 0.5 X10*3/uL (0.1-1.2); Monocytes Percent Auto 3.6 % (2-11); Neutrophils Absolute Auto 11.5 x10*3/uL (2.0-8.3); Neutrophils Percent Auto 80.9 % (45-73); Platelet Count 220 X10*3/uL (160-400); Red Blood Count 4.84 X10*6/uL (4.20-5.50); Red Cell Distribution Width 15.8 % (11.0-16.0); White Blood Count 14.2 X10*3/uL (4.8-10.8)
[2023-07-02 22:24] LABS: D Dimer High Sensitivity 533 NG/ML
[2023-07-02 22:30] LABS: Alanine Aminotransferase 14 U/L (0-31); Albumin Level 3.9 g/dL (3.5-5.0); Alkaline Phosphatase 85 U/L (39-117); Anion Gap 12 (12-20); Aspartate Amino Transferase 12 U/L (5-31); Bilirubin Total 0.4 mg/dL (0.0-1.0); Blood Urea Nitrogen 10 mg/dL (9-16); Calcium 9.3 mg/dL (8.4-10.2); Carbon Dioxide 27 mmol/L (22-29); Chloride 105 mmol/L (96-108); Creatinine Clr Calc Pharmacy 175.8; Estimated Glomerular Filt Rate > 60; Glucose Random 110 mg/dL (60-115); Potassium 3.6 mmol/L (3.3-5.1); Sodium 140 mmol/L (135-145); Total Protein 7.3 g/dL (6.5-8.0)
[2023-07-02 22:36] LABS: B Type Natriuretic Peptide 35 pg/mL (<100)
[2023-07-03] VITALS (7 sets, daily range): BP systolic 121–150; BP diastolic 57–85; PULSE 72–105; RESP 12–19; TEMP 36.5–36.8; O2SAT 95–100
--- NOTE | 2023-07-03 05:27 | ED_ITS ---
HPI - Extremity Problem General Chief complaint: Extremity Problem Stated complaint: CELLULITIS RT THIGH? Time Seen by Provider: 07/03/23 05:19 Source: patient Mode of arrival: ambulatory Limitations: no limitations History of Present Illness HPI Narrative: Patient with history of lymphedema noticed increased redness and swelling of the right thigh for last few days getting worse in last 24 hours patient had similar presentation in 03/08 when her white counts for 24,000 and she was septic. No fever no chills in last 24 hours patient notes it blister on the medial aspect of the thigh which is leaking Related Data Home Medications ?Medication ?Instructions ?Recorded ?Confirmed cholecalciferol (vitamin D3) 1,250 1,250 mcg PO TU 03/16/22 06/12/23 mcg (50,000 unit) capsule Previous Rx's ?Medication ?Instructions ?Recorded epinephrine 0.3 mg/0.3 mL 0.3 mg (0.3 mL) IM Q4H PRN 08/23/21 injection, auto-injector (EpiPen anaphylaxis #2 ea 2-Jeremy) fluticasone furoate 200 1 inh inhalation DAILY 90 days #3 01/28/23 mcg-vilanterol 25 mcg/dose ea inhalation powder meclizine 25 mg tablet 25 mg PO DAILY PRN for dizziness 03/29/23 #14 tabs tirzepatide (weight loss) 2.5 2.5 mg (0.5 mL) subcut QWEEK 4 04/23/23 mg/0.5 mL subcutaneous pen weeks #2 mL injector (Zepbound) bupropion HCl 100 mg tablet,12 hr 100 mg PO BID #180 tabs 04/25/23 sustained-release (Wellbutrin SR) betamethasone, augmented 0.05 % 1 appl topical BID PRN skin 05/19/23 topical ointment (Diprolene irritation 14 days #45 grams (augmented)) fluticasone propionate 50 2 spray intranasal DAILY #16 grams 06/12/23 mcg/actuation nasal spray,suspension (Flonase Allergy Relief) Ventolin HFA 90 mcg/actuation 2 puff inhalation QID 90 days #18 06/18/23 aerosol inhaler (albuterol sulfate) grams Allergies Allergy/AdvReac Type Severity Reaction Status Date / Time bacitracin [Bacitracin] Allergy Unknown UNKNOWN Verified 07/02/23 21:36 budesonide [Symbicort] Allergy Unknown Unknown Verified 07/02/23 21:36 cephalexin [Keflex] Allergy Unknown Unknown Verified 07/02/23 21:36 egg yolk Allergy Unknown UNKNOWN Verified 07/02/23 21:36 Egg/Pro Allergy Unknown Unknown Verified 07/02/23 21:36 formoterol [Symbicort] Allergy Unknown Unknown Verified 07/02/23 21:36 Iodinated Contrast Media Allergy Unknown BY SKIN Verified 07/02/23 21:36 [IV Dye, Iodine Containing] TEST metoclopramide [From Reglan] Allergy Unknown Unknown Verified 07/02/23 21:36 monosodium glutamate Allergy Unknown PER MD Verified 07/02/23 21:36 peanut [Peanut] Allergy Unknown UNKNOWN Verified 07/02/23 21:36 shellfish derived Allergy Unknown Unknown Verified 07/02/23 21:36 montelukast [From Singulair] AdvReac Mild Anxiety Verified 07/02/23 21:36 Review of Systems 2 Review of Systems: Yes all other systems are reviewed and are negative PMFSH Past Medical History Medical History Mass of right thigh Lipoma of both lower extremities Cellulitis of right thigh Cellulitis Lymphedema Pressure sore on buttocks, right, unstageable Bilateral thigh pain Elevated fasting glucose Shortness of breath on exertion COVID-19 virus infection Leg wound, right Morbid obesity with BMI of 40.0-44.9, adult Swelling of thigh Foot fracture, right Eczematous dermatitis Anxiety and depression Obstructive sleep apnea Pulmonary hypertension Obesity Hypercholesterolemia Vitamin D deficiency Peripheral vascular disease Allergic rhinitis Right leg pain GERD (gastroesophageal reflux disease) Asthma Surgical History H/O right breast biopsy Family History Family History Father Lymphoma CVD (cardiovascular disease) Mother CVD (cardiovascular disease) Hypertension Colon cancer Glaucoma Brother Leukemia Paternal Aunt Breast cancer Paternal Uncle Pancreatic cancer Other Mental health disorder Social History Social History Household Members: Family Housing: Apartment Do you presently have visiting nurse or other home services: No Alcohol intake: never Patient Tobacco Use Status: Never used Tobacco Smoked in Last 30 Days: No e-Cigarette/Vaping Use: Never Used Second Hand Smoke Exposure: No Use of substances other than those prescribed or required for medical reasons: No Advance Directives: No Advance Directives Information Provided: No Patient : No service: No Current occupational status: employed Cognitive needs: No Hearing needs: No Vision needs: Yes Physical Exam 2 Vital Signs: Vital Signs: Last Vital Signs Temp 98.2 F 07/03/23 04:39 Pulse 105 H 07/03/23 04:39 Resp 18 07/03/23 04:39 BP 150/85 H 07/03/23 04:39 Pulse Ox 97 07/03/23 04:39 O2 Del Method Room Air 07/03/23 04:39 BMI result Body Mass Index 90.3 Appearance: Alert. Oriented X3. No acute distress. Eyes: No pallor or icterus ENT: Pharynx normal. Oral Mucosa moist Neck: Normal inspection. Neck supple. CVS: Normal heart rate and rhythm. Pulses normal. Respiratory: No respiratory distress. Equal air entry bilateral, no wheezing/rales/rhonchi Abdomen: Soft and nontender. Bowel sounds are present, no mass palpable, no CVA tenderness Skin: Skin warm and dry. Normal skin color. Normal skin turgor. Extremities: Lymphedema specially of the thigh right thigh swelling and redness of the lateral aspect with local warmth, No calf tenderness Neuro: Oriented X 3. No motor deficit. No sensory deficit.No cerebellar signs , cranial nerves II-XII intact Medications Administered Generic Name Dose Route Start Last Admin Trade Name Freq PRN Reason Stop Dose Admin Vancomycin HCl 2,000 mg in 500 mls @ 250 mls/hr 07/03/23 06:29 07/03/23 06:41 Vancomycin/Ns IV 07/03/23 08:28 250 mls/hr ONCE ONE Administration Sodium Chloride 1,000 mls @ 999 mls/hr 07/03/23 06:34 07/03/23 06:45 Ns IV 07/03/23 07:34 999 mls/hr .Q1H1M ONE Administration Medical Decision Making Medical Decision Making [facility] Narrative: Patient with lymphedema with cellulitis of the lateral aspect of right thigh with elevated WBC count. Venous Doppler negative for DVT. Will admit patient for cellulitis for IV antibiotic treatment blood cultures drawn lactic acid drawn will give IV fluids Differential Diagnosis Differential Diagnoses: The differential diagnosis associated with the presentation includes Cellulitis/DVT/lymphedema Admission/Observation Consideration of admission/observation: Escalation of care including admission/observation considered Consult Healthcare Provider Management of the patient was discussed with: Hospitalist Lab Data [facility] Lab Attestation statement: I reviewed the patient's lab results. 07/02/23 22:04 07/02/23 22:04 Labs: Lab Results 07/02/23 Range/Units 22:04 WBC 14.2 H (4.8-10.8) X10*3/uL RBC 4.84 (4.20-5.50) X10*6/uL Hgb 12.1 (12.0-16.0) g/dl Hct 38.4 (37.0-47.0) % MCV 79.3 L (80.0-98.0) fL MCH 25.0 L (27.0-33.0) pg MCHC 31.5 (31.0-35.0) g/dl RDW 15.8 (11.0-16.0) % Plt Count 220 (160-400) X10*3/uL MPV 10.7 (9.4-12.3) fL Immature Gran % (Auto) 0.5 H (0.0-0.4) % Neut % (Auto) 80.9 H (45-73) % Lymph % (Auto) 13.0 L (20-40) % [place] % (Auto) 3.6 (2-11) % Eos % (Auto) 1.6 (0-4) % Baso % (Auto) 0.4 (0-2) % Lymph # (Auto) 1.9 (1.2-4.9) X10*3/uL [place] # (Auto) 0.5 (0.1-1.2) X10*3/uL Eos # (Auto) 0.2 (0.0-0.4) X10*3/uL Baso # (Auto) 0.1 (0.0-0.2) X10*3/uL Abs Immat Gran (auto) 0.07 H (0.00-0.03) X10*3/uL Absolute Neuts (auto) 11.5 H (2.0-8.3) x10*3/uL Absolute Nucleated RBC 0.000 (0.0-0.012) X10*3/uL Nucleated RBC % (auto) 0.0 (0.0-0.2) /100WBC D-Dimer High Sensitivty 533 NG/ML Sodium 140 (135-145) mmol/L Potassium 3.6 (3.3-5.1) mmol/L Chloride 105 (96-108) mmol/L Carbon Dioxide 27 (22-29) mmol/L Anion Gap 12 (12-20) BUN 10 (9-16) mg/dL Creatinine 0.69 (0.5-1.4) mg/dL Estim Creat Clear Calc 175.8 Estimated GFR > 60 Random Glucose 110 (60-115) mg/dL Calcium 9.3 D (8.4-10.2) mg/dL Total Bilirubin 0.4 (0.0-1.0) mg/dL AST 12 (5-31) U/L ALT 14 (0-31) U/L Alkaline Phosphatase 85 (39-117) U/L B-Natriuretic Peptide 35 (<100) pg/mL Total Protein 7.3 (6.5-8.0) g/dL Albumin 3.9 (3.5-5.0) g/dL Independent Interpretation I performed an independent interpretation of an: Ultrasound Interpretation: Doppler negative for DVT Radiology Impression Discussion of test interpretation with radiology: I have reviewed the radiologist's reading. Discharge Plan Discharge Clinical Impression: Cellulitis, Lower extremity edema Patient Disposition: Admitted As Inpatient Print Language: Spanish
[2023-07-03] MEDS: vancomycin/NS 2,000 MG/500 ML PLAST..BAG 250 MG IV (06:41)
[2023-07-03] MEDS: 0.9 % Sodium Chloride 1,000 ML 999 ML IV (06:45)
[2023-07-03 06:58] LABS: Lactic Acid 0.7 mmol/L (0.5-2.0)
--- NOTE | 2023-07-03 08:15 | PC.NURSE ---
PT SEEN BY . PT AWARE OF PLAN OF CARE. WILL CONTINUE TO MONITOR.
--- NOTE | 2023-07-03 08:58 | PHA.PROG ---
Admission Date/Time: July 03, 2023 08:41 Indication: skin Weight in k.756 kg Adjusted body weight in Kg: [place] body weight in Kg: Obesity Dosing Indication % IBW: Serum Creatinine - Last 168 Hours 07/02/23 22:04 Creatinine 0.69 Estimated CrCl and GFR - Last 168 Hours 07/02/23 22:04 Estim Creat Clear Calc 175.8 Estimated GFR > 60 Vancomycin Loading Dose: 2000mg x 1 Current Vancomycin Dosing Regimen: 1250mg Q12H Vancomycin Monitoring using AUC goal of 400 - 600 range with trough as surrogate marker: 493 mg/L Date and Time for next Vancomycin Level to be drawn: 07/04/23 @1700 Pharmacist Comments on Vancomycin Plan: PAtient's BMI is 90, obese model being used. Predicted trough of 13.8 mg/L. Will continue to monitor renal function and beware of dose dumping Vancomycin dosing will take advantage of [employer] as a clinical decision support tool that uses Bayesian modeling to calculate individual patient's pharmacokinetic parameters and forecast the patient's drug concentration time course with the target goal AUC 24 range of 400 - 600 mg/L/hr.
--- NOTE | 2023-07-03 08:59 | P.HPHOSP_ITS ---
History of Present Illness Date of Service: 07/03/23 Chief Complaint: leg swelling/erythema The patient is a 42 year old female with a PMH of Class 3 obesity, lymphedema of RLE, prior sepsis secondary to cellulitis of the RLE, asthma, anxiety and eczema who presents to [facility] with a 1 day history of RLE redness and swelling. The patient states that she is part of a lymphedema clinic where she has weekly visits. During the week prior to admission, there was noted erythema in the RLE (Thigh) but the pt felt it may have been her ecezema. Over the last 24 hours, the erythema worsened, she had puritis and increasingly became swollen/warm, hence she presented to the ED. She denies any fevers or chills. No trauma to the area. ED work up showed WBC of 14, otherwise labs wnl. Doppler neg for DVT. She has been given 1L IVF and IV vancomcyin and now will be admitted for further work up. Review of Systems 2 Review of Systems: Negative except HPI/interval history. [facility] Medical History Mass of right thigh Lipoma of both lower extremities Cellulitis of right thigh Cellulitis Lymphedema Pressure sore on buttocks, right, unstageable Bilateral thigh pain Elevated fasting glucose Shortness of breath on exertion COVID-19 virus infection Leg wound, right Morbid obesity with BMI of 40.0-44.9, adult Swelling of thigh Foot fracture, right Eczematous dermatitis Anxiety and depression Obstructive sleep apnea Pulmonary hypertension Obesity Hypercholesterolemia Vitamin D deficiency Peripheral vascular disease Allergic rhinitis Right leg pain GERD (gastroesophageal reflux disease) Asthma Family History Father Lymphoma CVD (cardiovascular disease) Mother CVD (cardiovascular disease) Hypertension Colon cancer Glaucoma Brother Leukemia Paternal Aunt Breast cancer Paternal Uncle Pancreatic cancer Other Mental health disorder Surgical History H/O right breast biopsy Social History Household Members: Family Housing: Apartment Do you presently have visiting nurse or other home services: No Alcohol intake: never Patient Tobacco Use Status: Never used Tobacco Smoked in Last 30 Days: No e-Cigarette/Vaping Use: Never Used Second Hand Smoke Exposure: No Use of substances other than those prescribed or required for medical reasons: No Advance Directives: No Advance Directives Information Provided: No Patient : No service: No Current occupational status: employed Cognitive needs: No Hearing needs: No Vision needs: Yes Meds Allergies Allergy/AdvReac Type Severity Reaction Status Date / Time bacitracin [Bacitracin] Allergy Unknown UNKNOWN Verified 07/02/23 21:36 budesonide [Symbicort] Allergy Unknown Unknown Verified 07/02/23 21:36 cephalexin [Keflex] Allergy Unknown Unknown Verified 07/02/23 21:36 egg yolk Allergy Unknown UNKNOWN Verified 07/02/23 21:36 Egg/Pro Allergy Unknown Unknown Verified 07/02/23 21:36 formoterol [Symbicort] Allergy Unknown Unknown Verified 07/02/23 21:36 Iodinated Contrast Media Allergy Unknown BY SKIN Verified 07/02/23 21:36 [IV Dye, Iodine Containing] TEST metoclopramide [From Reglan] Allergy Unknown Unknown Verified 07/02/23 21:36 monosodium glutamate Allergy Unknown PER MD Verified 07/02/23 21:36 peanut [Peanut] Allergy Unknown UNKNOWN Verified 07/02/23 21:36 shellfish derived Allergy Unknown Unknown Verified 07/02/23 21:36 montelukast [From Singulair] AdvReac Mild Anxiety Verified 07/02/23 21:36 Active Medications: Current Medications Acetaminophen (Acetaminophen 325 Mg Tablet) 650 mg PO Q6H PRN PRN Reason: Pain, Mild (Pain Scale 1-3) Enoxaparin Sodium (Enoxaparin Sodium 40 Mg/0.4 Ml Syringe) 40 mg SUBCUT Q12H [facility] Vancomycin HCl 1,250 mg/ (Sodium Chloride) 250 mls @ 166.667 mls/hr IV Q12H [facility] Pharmacy Consult (Consult Rx Vancomycin Dosing) 1 each MISCELLANE DAILY PRN PRN Reason: Consult order Sodium Chloride (0.9 % Sodium Chloride Flush 3 Ml Syringe) 3 ml IVFLUSH QSHIFT [facility] Home Medications ?Medication ?Instructions ?Recorded ?Confirmed ?Last Taken ?Type cholecalciferol (vitamin D3) 1,250 1,250 mcg PO TU 03/16/22 06/12/23 03/06/22 History mcg (50,000 unit) capsule Physical Exam 2 Vital Signs and Narrative: Vital Signs: Last Vital Signs Temp 97.9 F 07/03/23 07:17 Pulse 72 07/03/23 07:17 Resp 19 07/03/23 07:17 BP 127/57 L 07/03/23 07:17 Pulse Ox 99 07/03/23 07:17 O2 Del Method Room Air 07/03/23 07:17 BMI result Body Mass Index 90.3 Const: Other: Constitutional - Awake and Alert, No apparent distress Eyes - PERRLA, EOMI Cardiovascular - S1S2, RRR, No edema Respiratory - Normal lung expansion, Normal respiratory effort, No respiratory distress, CTA bilaterally Gastrointestinal - NT / ND; +BS; No rebound or guarding - No CVA tenderness Extremities - b/l LE lymphedema Musculoskeletal - Normal inspection, normal ROM Skin - RLE (thigh) erythema on the lateral side, extending towards the knee, warm and edematous Neurological - Alert & oriented x3, No focal deficit Psychological - Appropriate affect Results Labs 07/02/23 22:04 07/02/23 22:04 Labs: Laboratory Results - last 24 hr 07/02/23 07/03/23 22:04 06:43 MCV 79.3 L MCH 25.0 L MCHC 31.5 RDW 15.8 Plt Count 220 MPV 10.7 Immature Gran % (Auto) 0.5 H Neut % (Auto) 80.9 H Lymph % (Auto) 13.0 L [place] % (Auto) 3.6 Eos % (Auto) 1.6 Baso % (Auto) 0.4 Lymph # (Auto) 1.9 [place] # (Auto) 0.5 Eos # (Auto) 0.2 Baso # (Auto) 0.1 Abs Immat Gran (auto) 0.07 H Absolute Neuts (auto) 11.5 H Absolute Nucleated RBC 0.000 Nucleated RBC % (auto) 0.0 D-Dimer High Sensitivty 533 Anion Gap 12 Estim Creat Clear Calc 175.8 Estimated GFR > 60 Random Glucose 110 Lactic Acid 0.7 Calcium 9.3 D Total Bilirubin 0.4 AST 12 ALT 14 Alkaline Phosphatase 85 B-Natriuretic Peptide 35 Total Protein 7.3 Albumin 3.9 Imaging Radiologist's Impressions: Impressions Venous Duplex 07/03/23 06:20 IMPRESSION: No DVT demonstrated in the right lower extremity. Assessment and Plan (1) Cellulitis: Status: Acute Plan 42 yo F with lymphedema, class 3 obesity and eczema who presents with RLE cellulitis. She will be admitted for further care. 1. RLE cellulitis in a patient with lymphedema and eczema Was septic during the last admission in 2021 (not septic currently) and responded well to vancomycin will continue the same follow clinically 2. Lymphedema impacting #1 continue with outpatient f/u in her clinic 3. Class 3 obesity consider outpatient weight management program referral 4. Asthma not in exacerbation continue baseline meds Full Code DVT pptx, Lovenox (BID dosing per weight) Pt with prior sepsis secondary to cellulitis and now presenting with significant cellulitis (with risk factors of eczema and lymphedema), therefore expected to require 48-72 hours of IV antibioitcs. Therefore, will be admitted as inpatient (admission anticipated to spans 2 midnights). Med rec pending, will continue baseline meds as appropriate. Quality Stroke Does the patient have a stroke diagnosis?: No VTE Prior VTE?: No VTE Risk Level:: Medical - moderate - high VTE Device Contraindication: Treatment Not Tolerated VTE Drug Contraindication: N/A - Med Ordered
--- NOTE | 2023-07-03 09:04 | PC.NURSE ---
PT IS A/O X 4 NO SOB/EVA NOTED SPEAKS IN FULL SENTENCES. PT IS MORBIDLY OBESE. PT HAS R LEG CELLULITES. AREA IS HARDEN, CORDELIA AND TENDER TO TOUCH. PT AWARE OF PLAN OF CARE WILL CONTINUE TO MONITOR.
[2023-07-03] MEDS: Enoxaparin Sodium 40 MG/0.4 ML SYRINGE SUBCUT ×2 (09:35→21:34)
--- NOTE | 2023-07-03 10:18 | PC.NURSE ---
given hospital bed for added comfort. piv dressing change- c/d/i. pharmacy came to bedside to verify home meds
--- NOTE | 2023-07-03 10:19 | PHA.MEDREC ---
Pharmacy Consult ? Medication Reconciliation Pharmacy has completed the medication reconciliation. Spoke to patient and confirmed medication list. Patient verified she no longer takes Mounjaro nor medroxyprogesterone
[2023-07-03 10:34] LABS: Creatinine Clr Calc Pharmacy 192.5; Estimated Glomerular Filt Rate > 60
[2023-07-03] MEDS: Fluticasone/Vilanterol 200/25 BLST.W.DEV 1 PUFF INHALE (11:36)
--- NOTE | 2023-07-03 13:05 | PC.NURSE ---
no distress- sleeping well. no distress.
[2023-07-03] MEDS: vancomycin HCL 1,250 MG in 0.9 % Sodium Chloride 250 ML 166.67 MG IV (19:38)
--- NOTE | 2023-07-03 19:53 | MHC.CM.PN ---
IMM 07/02. CM met with admitted patient with bed assignment pending. IMM reviewed and signed. Original given to patient with a copy to Medical Records. Pt lives with her mother and cares for her. 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 Pt works for [employer]. She uses no DME or Services Pt had no recent vaccinations in 2022. No HCP. Reviewed. Patient declines to complete at this time. D/C plan: Home without services. Pt has her car in the parking lot and plans to drive herself home. Can arrange a ride if needed. THRIVE assessment negative. CM will follow for any discharge needs.
[2023-07-03] MEDS: Acetaminophen 325 MG TABLET 650 MG PO (22:42)
[2023-07-04 00:24] VITALS: BP 128/75; PULSE 74; RESP 16; TEMP 36.7; O2SAT 97
[2023-07-04] MEDS: 0.9 % Sodium Chloride Flush 3 ML SYRINGE IVFLUSH (02:11)
[2023-07-04 05:43] LABS: Hematocrit 36.2 % (37.0-47.0); Hemoglobin 11.2 g/dl (12.0-16.0); Mean Corpuscular HGB Conc 30.9 g/dl (31.0-35.0); Mean Corpuscular Hemoglobin 24.6 pg (27.0-33.0); Mean Corpuscular Volume 79.4 fL (80.0-98.0); Mean Platelet Volume 10.9 fL (9.4-12.3); Platelet Count 195 X10*3/uL (160-400); Red Blood Count 4.56 X10*6/uL (4.20-5.50); Red Cell Distribution Width 15.9 % (11.0-16.0)
[2023-07-04 06:02] LABS: Anion Gap 12 (12-20); Blood Urea Nitrogen 9 mg/dL (9-16); Calcium 8.8 mg/dL (8.4-10.2); Carbon Dioxide 26 mmol/L (22-29); Chloride 106 mmol/L (96-108); Creatinine Clr Calc Pharmacy 170.8; Estimated Glomerular Filt Rate > 60; Glucose Random 88 mg/dL (60-115); Potassium 3.2 mmol/L (3.3-5.1); Sodium 141 mmol/L (135-145)
[2023-07-04 06:10] VITALS: BP 129/63; PULSE 70; RESP 16; TEMP 36.6; O2SAT 98
[2023-07-04] MEDS: Acetaminophen 325 MG TABLET 650 MG PO (06:46)
[2023-07-04] MEDS: vancomycin HCL 1,250 MG in 0.9 % Sodium Chloride 250 ML 166.66 MG IV (06:47)
[2023-07-04] MEDS: Fluticasone/Vilanterol 200/25 BLST.W.DEV 1 PUFF INHALE (07:34)
[2023-07-04 07:36] VITALS: PULSE 67; RESP 16; O2SAT 97
[2023-07-04] MEDS: Cholecalciferol (Vitamin D3) 25 MCG TABLET PO (08:57)
[2023-07-04] MEDS: Enoxaparin Sodium 40 MG/0.4 ML SYRINGE SUBCUT ×2 (08:57→21:19)
[2023-07-04] MEDS: Potassium Chloride ER 20 MEQ TAB.ER.PRT PO (08:57)
[2023-07-04] MEDS: buPROPion HCl XL 150 MG TAB.ER.24H PO (08:57)
--- NOTE | 2023-07-04 09:02 | PC.NURSE ---
PT AMBULATORY TO THE BATHROOM WITHOUT DIFFICULTY. SHE WAS MEDICATED CHARTED. ATE BREAKFAST.
--- NOTE | 2023-07-04 12:44 | HO.PM.IMPN ---
Subjective Subjective Date of Service: 07/04/23 Interval History: right lower ext cellulitis Review of Systems leg erythema seems improving no fever or chills Physical Exam Vital Signs: Vital Signs: Last Vital Signs Temp 97.8 F 07/04/23 06:10 Pulse 67 07/04/23 07:36 Resp 16 07/04/23 07:36 BP 129/63 07/04/23 06:10 Pulse Ox 98 07/04/23 06:10 O2 Del Method Room Air 07/04/23 06:10 BMI result Body Mass Index 90.3 Appearance: Alert.? Oriented X3.? cvs: [id number], [id number] . res: clear to auscultation ,no rhonchii or wheezing abd: no rebound or guarding ,nt, bs present. ext pulses present , no cyanosis . RLE (thigh) erythema on the lateral side, extending towards the knee, warm and edematous neuro: axo3 , nonfocal. Objective Data Active Medications Acetaminophen (Acetaminophen 325 Mg Tablet) 650 mg PO Q6H PRN PRN Reason: Pain, Mild (Pain Scale 1-3) Last Admin: 07/04/23 06:46 Dose: 650 mg Documented By: TREY Bupropion HCl (Bupropion Hcl Xl 150 Mg Tab.Er.24h) 150 mg PO DAILY [facility] Last Admin: 07/04/23 08:57 Dose: 150 mg Documented By: DARIEN Enoxaparin Sodium (Enoxaparin Sodium 40 Mg/0.4 Ml Syringe) 40 mg SUBCUT Q12H [facility] Last Admin: 07/04/23 08:57 Dose: 40 mg Documented By: DARIEN Fluticasone/Vilanterol (Fluticasone/Vilanterol 200/25 Blst.W.Dev) 1 puff INHALE DAILY [facility] Last Admin: 07/04/23 07:34 Dose: 1 puff Documented By: SAVANNAH Vancomycin HCl 1,250 mg/ (Sodium Chloride) 250 mls @ 166.667 mls/hr IV Q12H [facility] Last Infusion: 07/04/23 08:30 Dose: Infused Documented By: DARIEN Pharmacy Consult (Consult Rx Vancomycin Dosing) 1 each MISCELLANE DAILY PRN PRN Reason: Consult order Sodium Chloride (0.9 % Sodium Chloride Flush 3 Ml Syringe) 3 ml IVFLUSH QSHIFT [facility] Last Admin: 07/04/23 07:41 Dose: Not Given Documented By: DARIEN Non-Admin Reason: IV Running Vitamin D (Cholecalciferol (Vitamin D3) 25 Mcg Tablet) 25 mcg PO DAILY [facility] Last Admin: 07/04/23 08:57 Dose: 25 mcg Documented By: DARIEN Labs 07/04/23 04:25 07/04/23 04:25 Labs: Laboratory Results - last 24 hr 07/04/23 04:25 MCV 79.4 L MCH 24.6 L MCHC 30.9 L RDW 15.9 Plt Count 195 MPV 10.9 Absolute Nucleated RBC 0.000 Nucleated RBC % (auto) 0.0 Anion Gap 12 Estim Creat Clear Calc 170.8 Estimated GFR > 60 Random Glucose 88 Calcium 8.8 Microbiology Microbiology Results: Microbiology 07/03/23 06:43 Blood Culture - Preliminary Blood - Arterial Line No growth after 24 hours. 07/03/23 06:43 Blood Culture - Preliminary Blood - Arterial Line No growth after 24 hours. Assessment and Plan (1) Cellulitis: Status: Acute Plan 42 yo F with lymphedema, class 3 obesity and eczema who presents with RLE cellulitis. She will be admitted for further care. 1. RLE cellulitis in a patient with lymphedema and eczema Was septic during the last admission in 2021 (not septic currently) and responded well to vancomycin will continue the same follow clinically 2. Lymphedema impacting #1 continue with outpatient f/u in her clinic 3. Class 3 obesity consider outpatient weight management program referral 4. Asthma not in exacerbation continue baseline meds Full Code DVT pptx, Lovenox (BID dosing per weight) pngoing hospitlisation need: prior sepsis secondary to cellulitis and now presenting with significant cellulitis (with risk factors of eczema and lymphedema), therefore expected to require 48-72 hours of IV antibioitcs. Quality Stroke Does the patient have a stroke diagnosis?: No VTE Prior VTE?: No VTE Risk Level:: Medical - moderate - high VTE Device Contraindication: Treatment Not Tolerated VTE Drug Contraindication: N/A - Med Ordered
[2023-07-04 14:58] VITALS: BP 115/58; PULSE 71; RESP 16; TEMP 36.6; O2SAT 94
--- NOTE | 2023-07-04 16:10 | MHC.CM.PN ---
CM ATTEMPTED TO MEET WITH PT WHO WAS SLEEPING AND DID NOT RESPOND TO ATTEMPTS TO WAKE HER. CM TO REVISIT
[2023-07-04 18:14] LABS: Vancomycin Trough 10.8 mcg/mL (10.0-20.0)
[2023-07-04] MEDS: vancomycin HCL 1,250 MG in 0.9 % Sodium Chloride 250 ML 166.67 MG IV (19:39)
[2023-07-04 22:00] VITALS: BP 116/64; PULSE 75; RESP 20; TEMP 36.2; O2SAT 96
--- NOTE | 2023-07-05 03:07 | PC.NURSE ---
Pt sleeping at the bedside. No apparent distress noted. Breaths are even regular and unlabored with equal chest rises.
[2023-07-05 05:45] LABS: Creatinine Clr Calc Pharmacy 168.4; Estimated Glomerular Filt Rate > 60
--- NOTE | 2023-07-05 06:35 | PC.NURSE ---
Pt aox4 resting at the bedside reporting nasal congestion and allergies. Requesting zyrtec and flonase as these help at home. [place] text sent to Dr. Gramajo.
[2023-07-05 07:28] VITALS: BP 129/67; PULSE 81; RESP 18; TEMP 36.6; O2SAT 97
[2023-07-05 07:46] VITALS: PULSE 79; RESP 16; O2SAT 96
[2023-07-05] MEDS: Enoxaparin Sodium 40 MG/0.4 ML SYRINGE SUBCUT ×2 (07:46→20:13)
[2023-07-05] MEDS: Fluticasone/Vilanterol 200/25 BLST.W.DEV 1 PUFF INHALE (07:46)
[2023-07-05] MEDS: buPROPion HCl XL 150 MG TAB.ER.24H PO (07:47)
[2023-07-05] MEDS: Acetaminophen 325 MG TABLET 650 MG PO ×2 (07:47→17:14)
[2023-07-05] MEDS: Cholecalciferol (Vitamin D3) 25 MCG TABLET PO (07:47)
[2023-07-05] MEDS: vancomycin HCL 1,250 MG in 0.9 % Sodium Chloride 250 ML 166.67 MG IV (07:48)
[2023-07-05 08:00] VITALS: BP 138/86; PULSE 90; RESP 16; TEMP 36.6; O2SAT 97
[2023-07-05] MEDS: 0.9 % Sodium Chloride Flush 3 ML SYRINGE IVFLUSH ×3 (08:10→21:54)
--- NOTE | 2023-07-05 08:10 | PC.NURSE ---
PT IS A/O X 4 NO C/O SOB/EVA NOTED SPEAKS IN FULL SENTENCES. PT ATE 50% OF BREAKFAST. PT STATES THAT SHE WILL DO HER ADL'S AFTER ABT IVF IS COMPLETED. PT'S R THIGH SLIGHT REDNESS/HARD NOTED. PT HAS COMPRESSION STOCKINGS IN PLACE. PT AWARE OF PLAN OF CARE. WILL CONTINUE TO MONITOR.
--- NOTE | 2023-07-05 12:37 | HO.PM.IMPN ---
Subjective Subjective Date of Service: 07/05/23 Interval History: right lower ext cellulitis Review of Systems leg erythema seems similar no fever or chills Physical Exam Vital Signs: Vital Signs: Last Vital Signs Temp 97.9 F 07/05/23 08:00 Pulse 90 07/05/23 08:00 Resp 16 07/05/23 08:00 BP 138/86 07/05/23 08:00 Pulse Ox 97 07/05/23 08:00 O2 Del Method Room Air 07/05/23 08:00 BMI result Body Mass Index 90.3 Appearance: Alert.? Oriented X3.? cvs: rrr, [id number] . res: clear to auscultation ,no rhonchii or wheezing abd: no rebound or guarding ,nt, bs present. ext pulses present , no cyanosis . RLE (thigh) erythema on the lateral side, extending towards the knee, warm and edematous neuro: axo3 , nonfocal. Objective Data Active Medications Acetaminophen (Acetaminophen 325 Mg Tablet) 650 mg PO Q6H PRN PRN Reason: Pain, Mild (Pain Scale 1-3) Last Admin: 07/05/23 07:47 Dose: 650 mg Documented By: PAULA Bupropion HCl (Bupropion Hcl Xl 150 Mg Tab.Er.24h) 150 mg PO DAILY [facility] Last Admin: 07/05/23 07:47 Dose: 150 mg Documented By: PAULA Enoxaparin Sodium (Enoxaparin Sodium 40 Mg/0.4 Ml Syringe) 40 mg SUBCUT Q12H [facility] Last Admin: 07/05/23 07:46 Dose: 40 mg Documented By: PAULA Fluticasone Propionate (Fluticasone Propionate Nasal 16 Gm [place]) 1 spray NOSTRIL-B BID [facility] Fluticasone/Vilanterol (Fluticasone/Vilanterol 200/25 Blst.W.Dev) 1 puff INHALE DAILY [facility] Last Admin: 07/05/23 07:46 Dose: 1 puff Documented By: ESTHER Vancomycin HCl 1,250 mg/ (Sodium Chloride) 250 mls @ 166.667 mls/hr IV Q12H [facility] Last Infusion: 07/05/23 09:20 Dose: Infused Documented By: PAULA Pharmacy Consult (Consult Rx Vancomycin Dosing) 1 each MISCELLANE DAILY PRN PRN Reason: Consult order Sodium Chloride (0.9 % Sodium Chloride Flush 3 Ml Syringe) 3 ml IVFLUSH QSHIFT [facility] Last Admin: 07/05/23 08:10 Dose: 3 ml Documented By: HEMANTOC Vitamin D (Cholecalciferol (Vitamin D3) 25 Mcg Tablet) 25 mcg PO DAILY [facility] Last Admin: 07/05/23 07:47 Dose: 25 mcg Documented By: HEMANTOC Labs 07/04/23 04:25 07/05/23 05:01 Labs: Laboratory Results - last 24 hr 07/04/23 07/05/23 17:45 05:01 Estim Creat Clear Calc 168.4 Estimated GFR > 60 Vancomycin Trough 10.8 Microbiology Microbiology Results: Microbiology 07/03/23 06:43 Blood Culture - Preliminary Blood - Arterial Line No growth after 48 hours. 07/03/23 06:43 Blood Culture - Preliminary Blood - Arterial Line No growth after 48 hours. Assessment and Plan (1) Cellulitis: Status: Acute Plan 42 yo F with lymphedema, class 3 obesity and eczema who presents with RLE cellulitis. She will be admitted for further care. 1. RLE cellulitis in a patient with lymphedema and eczema Was septic during the last admission in 2021 (not septic currently) and responded well to vancomycin will continue the same follow clinically 2. Lymphedema impacting #1 continue with outpatient f/u in her clinic 3. Class 3 obesity consider outpatient weight management program referral 4. Asthma not in exacerbation continue baseline meds Full Code DVT pptx, Lovenox (BID dosing per weight) pngoing hospitlisation need: prior sepsis secondary to cellulitis and now presenting with significant cellulitis (with risk factors of eczema and lymphedema), therefore expected to require 48-72 hours of IV antibioitcs. Quality Stroke Does the patient have a stroke diagnosis?: No VTE Prior VTE?: No VTE Risk Level:: Medical - moderate - high VTE Device Contraindication: Treatment Not Tolerated VTE Drug Contraindication: N/A - Med Ordered
--- NOTE | 2023-07-05 12:42 | P.CDIM_ITS ---
PROVIDER RESPONSE TEXT: To clarify, the appropriate diagnosis supported by the clinical indicators: Mild intermittent: stable QUERY TEXT: PHYSICIAN'S DOCUMENTATION REQUEST Date of Query: 07/05/2023 10:56 AM EDT Patient Name: Armand aTylor Admit Date: 07/03/2023 Dear Anil [place], A review of the medical record indicates additional documentation may be needed. Please review below and update the documentation accordingly. The diagnosis of asthma was documented in the record on 07/04/23. Additional clinical indicators from the record include: PMH Asthma, not in exacerbation, continue baseline meds Based on the above, please clarify in the Progress Notes further specificity regarding the type and a cuity of the asthma: Mild intermittent Please specify if with or without acute exacerbation or status asthmaticus Mild persistent Please specify if with or without acute exacerbation or status asthmaticus Moderate persistent Please specify if with or without acute exacerbation or status asthmaticus Severe persistent Please specify if with or without acute exacerbation or status asthmaticus Exercise induced Please specify if with or without acute exacerbation or status asthmaticus Chronic obstructive asthma and indicate if with acute lower respiratory infection Please specify if with or without acute exacerbation or status asthmaticus Asthma with underlying COPD and indicate if with acute lower respiratory infection Please specify if with or without acute exacerbation or status asthmaticus Other (explain) Clinically unable to determine (explain) Thank you, Cierra Bee RN Use of terms such as suspected, likely, concern for, or probable (associated with a specific diagnosi s that is being evaluated, monitored, or treated as if it exists) are acceptable and can be coded in the inpatient se tting, when documented at the time of discharge. Please use your independent medical judgment in providing your response. THIS QUERY IS PART OF THE PERMANENT MEDICAL RECORD
[2023-07-05 15:20] VITALS: BP 134/69; PULSE 92; RESP 18; TEMP 36.7; O2SAT 97
--- NOTE | 2023-07-05 16:32 | W.PM.IDCN ---
History of Present Illness Data of Consult Service Date: 07/05/23 Requesting physician: Anil [place] Primary Care Provider: Davey Allred MD HPI Reason for consult: right LE cellulitis She presents with redness RLE/thigh over last day before admission,worsening. She has no fever or chills. She was started on Vancomycin and is improving and WBC decreased. Review of Systems Review of Systems: Yes all other systems are reviewed and are negative PMFSH Past Medical History Medical History Mass of right thigh Lipoma of both lower extremities Cellulitis of right thigh Cellulitis Lymphedema Pressure sore on buttocks, right, unstageable Bilateral thigh pain Elevated fasting glucose Shortness of breath on exertion COVID-19 virus infection Leg wound, right Morbid obesity with BMI of 40.0-44.9, adult Swelling of thigh Foot fracture, right Eczematous dermatitis Anxiety and depression Obstructive sleep apnea Pulmonary hypertension Obesity Hypercholesterolemia Vitamin D deficiency Peripheral vascular disease Allergic rhinitis Right leg pain GERD (gastroesophageal reflux disease) Asthma Family History Family History Father Lymphoma CVD (cardiovascular disease) Mother CVD (cardiovascular disease) Hypertension Colon cancer Glaucoma Brother Leukemia Paternal Aunt Breast cancer Paternal Uncle Pancreatic cancer Other Mental health disorder Surgical History Surgical History H/O right breast biopsy Social History Social History Household Members: None Housing: Apartment Do you presently have visiting nurse or other home services: No Alcohol intake: never Patient Tobacco Use Status: Never used Tobacco e-Cigarette/Vaping Use: Never Used Second Hand Smoke Exposure: No service: No Current occupational status: employed Cognitive needs: No Hearing needs: No Vision needs: Yes Meds Allergies Allergy/AdvReac Type Severity Reaction Status Date / Time bacitracin [Bacitracin] Allergy Unknown UNKNOWN Verified 07/02/23 21:36 budesonide [Symbicort] Allergy Unknown Unknown Verified 07/02/23 21:36 cephalexin [Keflex] Allergy Unknown Unknown Verified 07/02/23 21:36 egg yolk Allergy Unknown UNKNOWN Verified 04/16/24 21:36 Egg/Pro Allergy Unknown Unknown Verified 07/02/23 21:36 formoterol [Symbicort] Allergy Unknown Unknown Verified 07/02/23 21:36 Iodinated Contrast Media Allergy Unknown BY SKIN Verified 07/02/23 21:36 [IV Dye, Iodine Containing] TEST loratadine [From Claritin] Allergy Unknown Unknown Verified 07/05/23 07:28 metoclopramide [From Reglan] Allergy Unknown Unknown Verified 07/02/23 21:36 monosodium glutamate Allergy Unknown PER MD Verified 07/02/23 21:36 peanut [Peanut] Allergy Unknown UNKNOWN Verified 07/02/23 21:36 shellfish derived Allergy Unknown Unknown Verified 07/02/23 21:36 montelukast [From Singulair] AdvReac Mild Anxiety Verified 07/02/23 21:36 Active Medications: Current Medications Acetaminophen (Acetaminophen 325 Mg Tablet) 650 mg PO Q6H PRN PRN Reason: Pain, Mild (Pain Scale 1-3) Last Admin: 07/05/23 07:47 Dose: 650 mg Bupropion HCl (Bupropion Hcl Xl 150 Mg Tab.Er.24h) 150 mg PO DAILY [facility] Last Admin: 07/05/23 07:47 Dose: 150 mg Enoxaparin Sodium (Enoxaparin Sodium 40 Mg/0.4 Ml Syringe) 40 mg SUBCUT Q12H [facility] Last Admin: 07/05/23 07:46 Dose: 40 mg Fluticasone Propionate (Fluticasone Propionate Nasal 16 Gm [place]) 1 spray NOSTRIL-B BID [facility] Last Admin: 07/05/23 14:10 Dose: Not Given Fluticasone/Vilanterol (Fluticasone/Vilanterol 200/25 Blst.W.Dev) 1 puff INHALE DAILY [facility] Last Admin: 07/05/23 07:46 Dose: 1 puff Vancomycin HCl 1,250 mg/ (Sodium Chloride) 250 mls @ 166.667 mls/hr IV Q12H [facility] Last Infusion: 07/05/23 09:20 Dose: Infused Pharmacy Consult (Consult Rx Vancomycin Dosing) 1 each MISCELLANE DAILY PRN PRN Reason: Consult order Sodium Chloride (0.9 % Sodium Chloride Flush 3 Ml Syringe) 3 ml IVFLUSH QSHIFT [facility] Last Admin: 07/05/23 08:10 Dose: 3 ml Vitamin D (Cholecalciferol (Vitamin D3) 25 Mcg Tablet) 25 mcg PO DAILY [facility] Last Admin: 07/05/23 07:47 Dose: 25 mcg Home Medications ?Medication ?Instructions ?Recorded ?Confirmed ?Last Taken ?Type albuterol sulfate 90 mcg/actuation 2 puff inhalation QID PRN 07/03/23 07/03/23 Unknown History aerosol inhaler (Ventolin HFA) Shortness Of Breath Or Wheezing cholecalciferol (vitamin D3) 25 25 mcg PO DAILY 07/03/23 07/03/23 Unknown History mcg (1,000 unit) tablet (Vitamin D3) Physical Exam Vital Signs: Vital Signs: Last Vital Signs Temp 98.1 F 07/05/23 15:20 Pulse 92 07/05/23 15:20 Resp 18 07/05/23 15:20 BP 134/69 07/05/23 15:20 Pulse Ox 97 07/05/23 15:20 O2 Del Method Room Air 07/05/23 15:20 BMI result Body Mass Index 90.3 Extrem: Other: RLE redness,still there Results Labs 07/04/23 04:25 07/05/23 05:01 Labs: BMP 07/05/23 05:01 Creatinine 0.72 Microbiology Microbiology Results: Microbiology 07/03/23 06:43 Blood - Arterial Line Blood Culture - Preliminary No growth after 48 hours. 07/03/23 06:43 Blood - Arterial Line Blood Culture - Preliminary No growth after 48 hours. Assessment and Plan (1) Lower extremity edema: Status: Acute (2) Cellulitis: Status: Acute Plan She has erythema responding to Vancomycin. She has no complaints. She should take Vancomycin another day or two and then po Doxycycline 100 mg bid. If not improving add IV Clindamycin 900 mg tid for 2-3 days
[2023-07-05 17:31] LABS: Vancomycin Random 12.9 mcg/mL (15-20)
--- NOTE | 2023-07-05 17:46 | HE.PHANOTE ---
Re: [place] Patient's renal function remains stable. Trough returned at 12.9 mg/L. Continue current dose of 1,250mg Q12H, predicted AUC 452mg/L, and predicted trough 12.4 mg/L. Next trough to be drawn 07/05 at 1700.
[2023-07-05] MEDS: vancomycin HCL 1,250 MG in 0.9 % Sodium Chloride 250 ML 84 MG IV (18:36)
[2023-07-05 19:34] VITALS: BP 121/57; PULSE 89; RESP 20; TEMP 36.6; O2SAT 93
[2023-07-06] MEDS: Acetaminophen 325 MG TABLET 650 MG PO ×2 (01:47→07:57)
[2023-07-06 04:00] VITALS: BP 125/63; PULSE 78; RESP 16; TEMP 36.3; O2SAT 95
[2023-07-06] MEDS: vancomycin HCL 1,250 MG in 0.9 % Sodium Chloride 250 ML 84 MG IV ×2 (06:28→18:05)
[2023-07-06 07:14] LABS: Creatinine Clr Calc Pharmacy 173.2; Estimated Glomerular Filt Rate > 60
[2023-07-06 07:28] VITALS: BP 147/70; PULSE 77; RESP 18; TEMP 36.4; O2SAT 96
[2023-07-06 07:32] VITALS: BP 110/70; PULSE 72; RESP 18; TEMP 36.7; O2SAT 99
[2023-07-06] MEDS: Fluticasone/Vilanterol 200/25 BLST.W.DEV 1 PUFF INHALE (07:52)
[2023-07-06 07:55] VITALS: PULSE 76; RESP 18; O2SAT 96
[2023-07-06] MEDS: Enoxaparin Sodium 40 MG/0.4 ML SYRINGE SUBCUT ×2 (07:56→19:53)
[2023-07-06] MEDS: Cholecalciferol (Vitamin D3) 25 MCG TABLET PO (07:57)
[2023-07-06] MEDS: buPROPion HCl XL 150 MG TAB.ER.24H PO (07:58)
--- NOTE | 2023-07-06 12:10 | P.PNIM_ITS ---
Subjective Subjective Date of Service: 07/06/23 Interval History: right lower ext cellulitis Review of Systems leg erythema seems somewhat improving no fever or chills Physical Exam 2 Vital Signs: Vital Signs: Last Vital Signs Temp 98.1 F 07/06/23 07:32 Pulse 76 07/06/23 07:55 Resp 18 07/06/23 07:55 BP 110/70 07/06/23 07:32 Pulse Ox 99 07/06/23 07:32 O2 Del Method Room Air 07/06/23 07:32 BMI result Body Mass Index 90.3 Appearance: Alert.? Oriented X3.? cvs: rrr, [id number] . res: clear to auscultation ,no rhonchii or wheezing abd: no rebound or guarding ,nt, bs present. ext pulses present , no cyanosis . RLE (thigh) erythema on the lateral side, extending towards the knee, warm and edematous neuro: axo3 , nonfocal. Objective Data Active Medications Acetaminophen (Acetaminophen 325 Mg Tablet) 650 mg PO Q6H PRN PRN Reason: Pain, Mild (Pain Scale 1-3) Last Admin: 07/06/23 07:57 Dose: 650 mg Documented By: JUAN Bupropion HCl (Bupropion Hcl Xl 150 Mg Tab.Er.24h) 150 mg PO DAILY [facility] Last Admin: 07/06/23 07:58 Dose: 150 mg Documented By: JUAN Enoxaparin Sodium (Enoxaparin Sodium 40 Mg/0.4 Ml Syringe) 40 mg SUBCUT Q12H [facility] Last Admin: 07/06/23 07:56 Dose: 40 mg Documented By: JUAN Fluticasone Propionate (Fluticasone Propionate Nasal 16 Gm [place]) 1 spray NOSTRIL-B BID [facility] Last Admin: 07/06/23 07:57 Dose: Not Given Documented By: JUAN Non-Admin Reason: Patient Refused Fluticasone/Vilanterol (Fluticasone/Vilanterol 200/25 Blst.W.Dev) 1 puff INHALE DAILY [facility] Last Admin: 07/06/23 07:52 Dose: 1 puff Documented By: ROD Vancomycin HCl 1,250 mg/ (Sodium Chloride) 250 mls @ 166.667 mls/hr IV Q12H [facility] Last Infusion: 07/06/23 09:27 Dose: Infused Documented By: ANITA Pharmacy Consult (Consult Rx Vancomycin Dosing) 1 each MISCELLANE DAILY PRN PRN Reason: Consult order Sodium Chloride (0.9 % Sodium Chloride Flush 3 Ml Syringe) 3 ml IVFLUSH QSHIFT [facility] Last Admin: 07/06/23 10:53 Dose: Not Given Documented By: ANITA Non-Admin Reason: IV Running Vitamin D (Cholecalciferol (Vitamin D3) 25 Mcg Tablet) 25 mcg PO DAILY [facility] Last Admin: 07/06/23 07:57 Dose: 25 mcg Documented By: JUAN Labs 07/04/23 04:25 07/06/23 05:20 Labs: Laboratory Results - last 24 hr 07/05/23 07/06/23 17:08 05:20 Hold Purple Top SEE NOTE Estim Creat Clear Calc 173.2 Estimated GFR > 60 Random Vancomycin 12.9 L Microbiology Microbiology Results: Microbiology 07/03/23 06:43 Blood Culture - Preliminary Blood - Arterial Line No growth after 48 hours. 07/03/23 06:43 Blood Culture - Preliminary Blood - Arterial Line No growth after 48 hours. Assessment and Plan (1) Cellulitis: Status: Acute Plan 42 yo F with lymphedema, class 3 obesity and eczema who presents with RLE cellulitis. She will be admitted for further care. 1. RLE cellulitis in a patient with lymphedema and eczema Was septic during the last admission in 2021 (not septic currently) and responded well to vancomycin will continue the same follow clinically 2. Lymphedema impacting #1 continue with outpatient f/u in her clinic 3. Class 3 obesity consider outpatient weight management program referral 4. Asthma not in exacerbation continue baseline meds Full Code DVT pptx, Lovenox (BID dosing per weight) pngoing hospitlisation need: prior sepsis secondary to cellulitis and now presenting with significant cellulitis (with risk factors of eczema and lymphedema), therefore expected to require 48-72 hours of IV antibioitcs. Quality Stroke Does the patient have a stroke diagnosis?: No VTE Prior VTE?: No VTE Risk Level:: Medical - moderate - high VTE Device Contraindication: Treatment Not Tolerated VTE Drug Contraindication: N/A - Med Ordered
[2023-07-06] MEDS: 0.9 % Sodium Chloride Flush 3 ML SYRINGE IVFLUSH ×2 (14:46→19:55)
[2023-07-06 14:57] VITALS: BP 131/67; PULSE 72; RESP 18; TEMP 36.3; O2SAT 95
[2023-07-06 17:22] LABS: Vancomycin Random 12.6 mcg/mL (15-20)
[2023-07-06 19:34] VITALS: BP 137/77; PULSE 77; RESP 18; TEMP 36.4; O2SAT 95
[2023-07-06] MEDS: Fluticasone Propionate Nasal 16 GM SPRAY 1 SPRAY NOSTRIL-B (19:53)
[2023-07-07 03:54] VITALS: BP 142/74; PULSE 70; RESP 16; TEMP 36; O2SAT 98
[2023-07-07] MEDS: vancomycin HCL 1,250 MG in 0.9 % Sodium Chloride 250 ML 84 MG IV (06:20)
--- NOTE | 2023-07-07 06:23 | PC.NURSE ---
pt had a good night, no c/o pain, ambulated to the bathroom several times and also ambulated in the hallway overnight for 13 minutes.
[2023-07-07 06:35] LABS: Creatinine Clr Calc Pharmacy 155.5; Estimated Glomerular Filt Rate > 60
[2023-07-07 07:09] VITALS: BP 131/61; PULSE 75; RESP 16; TEMP 36.1; O2SAT 96
[2023-07-07] MEDS: buPROPion HCl XL 150 MG TAB.ER.24H PO (07:41)
[2023-07-07] MEDS: Enoxaparin Sodium 40 MG/0.4 ML SYRINGE SUBCUT ×2 (07:41→20:01)
[2023-07-07] MEDS: Fluticasone Propionate Nasal 16 GM SPRAY 1 SPRAY NOSTRIL-B ×2 (07:41→20:03)
[2023-07-07] MEDS: Cholecalciferol (Vitamin D3) 25 MCG TABLET PO (07:41)
[2023-07-07 07:52] VITALS: PULSE 73; RESP 18; O2SAT 98
[2023-07-07] MEDS: Fluticasone/Vilanterol 200/25 BLST.W.DEV 1 PUFF INHALE (07:52)
[2023-07-07 08:34] LABS: Potassium 3.8 mmol/L (3.3-5.1)
[2023-07-07] MEDS: Acetaminophen 325 MG TABLET 650 MG PO (11:39)
--- NOTE | 2023-07-07 11:55 | HO.PM.IMPN ---
Subjective Subjective Date of Service: 07/07/23 Interval History: right lower ext cellulitis Review of Systems leg erythema seems somewhat improving no fever or chills Physical Exam Vital Signs: Vital Signs: Last Vital Signs Temp 96.9 F 07/07/23 07:09 Pulse 73 07/07/23 07:52 Resp 18 07/07/23 07:52 BP 131/61 07/07/23 07:09 Pulse Ox 96 07/07/23 07:09 O2 Del Method Room Air 07/07/23 07:09 BMI result Body Mass Index 90.3 Appearance: Alert.? Oriented X3.? cvs: [id number], [id number] . res: clear to auscultation ,no rhonchii or wheezing abd: no rebound or guarding ,nt, bs present. ext pulses present , no cyanosis . RLE (thigh) erythema on the lateral side, extending towards the knee, warm and edematous neuro: axo3 , nonfocal. Objective Data Active Medications Acetaminophen (Acetaminophen 325 Mg Tablet) 650 mg PO Q6H PRN PRN Reason: Pain, Mild (Pain Scale 1-3) Last Admin: 07/07/23 11:39 Dose: 650 mg Documented By: COTEMA Bupropion HCl (Bupropion Hcl Xl 150 Mg Tab.Er.24h) 150 mg PO DAILY [facility] Last Admin: 07/07/23 07:41 Dose: 150 mg Documented By: SONIAEMA Enoxaparin Sodium (Enoxaparin Sodium 40 Mg/0.4 Ml Syringe) 40 mg SUBCUT Q12H [facility] Last Admin: 07/07/23 07:41 Dose: 40 mg Documented By: SONIAEMA Fluticasone Propionate (Fluticasone Propionate Nasal 16 Gm [place]) 1 spray NOSTRIL-B BID [facility] Last Admin: 07/07/23 07:41 Dose: 1 spray Documented By: COTEMA Fluticasone/Vilanterol (Fluticasone/Vilanterol 200/25 Blst.W.Dev) 1 puff INHALE DAILY [facility] Last Admin: 07/07/23 07:52 Dose: 1 puff Documented By: BLASCL Vancomycin HCl 1,250 mg/ (Sodium Chloride) 250 mls @ 166.667 mls/hr IV Q12H [facility] Last Infusion: 07/07/23 09:35 Dose: Infused Documented By: MICHAEL Pharmacy Consult (Consult Rx Vancomycin Dosing) 1 each MISCELLANE DAILY PRN PRN Reason: Consult order Sodium Chloride (0.9 % Sodium Chloride Flush 3 Ml Syringe) 3 ml IVFLUSH QSHIFT [facility] Last Admin: 07/07/23 07:41 Dose: Not Given Documented By: MICHAEL Non-Admin Reason: IV Running Vitamin D (Cholecalciferol (Vitamin D3) 25 Mcg Tablet) 25 mcg PO DAILY [facility] Last Admin: 07/07/23 07:41 Dose: 25 mcg Documented By: MICHAEL Labs 07/04/23 04:25 07/07/23 05:23 Labs: Laboratory Results - last 24 hr 07/06/23 07/07/23 17:04 05:23 Hold Purple Top SEE NOTE Estim Creat Clear Calc 155.5 Estimated GFR > 60 Magnesium 2.0 Random Vancomycin 12.6 L Assessment and Plan (1) Cellulitis: Status: Acute Plan 42 yo F with lymphedema, class 3 obesity and eczema who presents with RLE cellulitis. She will be admitted for further care. 1. RLE cellulitis in a patient with lymphedema and eczema vanco trough -12.6 ( on 07/05) Was septic during the last admission in 2021 (not septic currently) and responded well to vancomycin(intiated on 07/02) will continue the same follow clinically ,surgery eval added to evaluate cellulitis area 2. Lymphedema impacting #1 continue with outpatient f/u in her clinic 3. Class 3 obesity consider outpatient weight management program referral 4. Asthma not in exacerbation continue baseline meds Full Code DVT pptx, Lovenox (BID dosing per weight) pngoing hospitlisation need: prior sepsis secondary to cellulitis and now presenting with significant cellulitis (with risk factors of eczema and lymphedema), therefore expected to require 48-72 hours of IV antibioitcs. Quality Stroke Does the patient have a stroke diagnosis?: No VTE Prior VTE?: No VTE Risk Level:: Medical - moderate - high VTE Device Contraindication: Treatment Not Tolerated VTE Drug Contraindication: N/A - Med Ordered
[2023-07-07 15:22] VITALS: BP 127/68; PULSE 70; RESP 18; TEMP 36; O2SAT 93
--- NOTE | 2023-07-07 15:52 | PM.CNGS ---
History of Present Illness Consult details Consult date: 07/07/23 Requesting physician: Anil [place] Narrative: The patient is a 42-year-old female with obesity and lymphedema who comes in with cellulitis of her right lower extremity. This is most likely in the setting of her lymphedema. She has had this in the past and it came on quickly and she became septic with it but responded to vancomycin. Currently she was admitted IV vanco started and via earlier today her right thigh area was already improving. She has had she says lymphedema probably for a couple years but it was only diagnosed last year and has been going to [facility] for massage therapy weekly and has had pumps at home but these do not fit her well and she has not been following through with treatments with the lymphedema pumps consistently. She does know Rj she says from tactile and they have been helping her in the past with her garments. She says that she has tried to have bariatric surgery done but was unable to lose enough weight in order to get this approved by the surgical team. She seeing the 2 surgeons here at [facility] as well as another surgeon at [facility]. She says she is also try to get approval for weight loss meds but her insurance is not covered that. [facility] Past Medical History Medical History Mass of right thigh Lipoma of both lower extremities Cellulitis of right thigh Cellulitis Lymphedema Pressure sore on buttocks, right, unstageable Bilateral thigh pain Elevated fasting glucose Shortness of breath on exertion COVID-19 virus infection Leg wound, right Morbid obesity with BMI of 40.0-44.9, adult Swelling of thigh Foot fracture, right Eczematous dermatitis Anxiety and depression Obstructive sleep apnea Pulmonary hypertension Obesity Hypercholesterolemia Vitamin D deficiency Peripheral vascular disease Allergic rhinitis Right leg pain GERD (gastroesophageal reflux disease) Asthma Family History Family History Father Lymphoma CVD (cardiovascular disease) Mother CVD (cardiovascular disease) Hypertension Colon cancer Glaucoma Brother Leukemia Paternal Aunt Breast cancer Paternal Uncle Pancreatic cancer Other Mental health disorder Surgical History Surgical History H/O right breast biopsy Social History Social History Household Members: None Housing: Apartment Do you presently have visiting nurse or other home services: No Alcohol intake: never Patient Tobacco Use Status: Never used Tobacco e-Cigarette/Vaping Use: Never Used Second Hand Smoke Exposure: No service: No Current occupational status: employed Cognitive needs: No Hearing needs: No Vision needs: Yes Meds Allergies Allergy/AdvReac Type Severity Reaction Status Date / Time bacitracin [Bacitracin] Allergy Unknown UNKNOWN Verified 07/02/23 21:36 budesonide [Symbicort] Allergy Unknown Unknown Verified 07/02/23 21:36 cephalexin [Keflex] Allergy Unknown Unknown Verified 07/02/23 21:36 egg yolk Allergy Unknown UNKNOWN Verified 07/02/23 21:36 Egg/Pro Allergy Unknown Unknown Verified 07/02/23 21:36 formoterol [Symbicort] Allergy Unknown Unknown Verified 07/02/23 21:36 Iodinated Contrast Media Allergy Unknown BY SKIN Verified 07/02/23 21:36 [IV Dye, Iodine Containing] TEST loratadine [From Claritin] Allergy Unknown Unknown Verified 07/05/23 07:28 metoclopramide [From Reglan] Allergy Unknown Unknown Verified 07/02/23 21:36 monosodium glutamate Allergy Unknown PER MD Verified 07/02/23 21:36 peanut [Peanut] Allergy Unknown UNKNOWN Verified 07/02/23 21:36 shellfish derived Allergy Unknown Unknown Verified 07/02/23 21:36 montelukast [From Singulair] AdvReac Mild Anxiety Verified 07/02/23 21:36 Active Medications: Current Medications Acetaminophen (Acetaminophen 325 Mg Tablet) 650 mg PO Q6H PRN PRN Reason: Pain, Mild (Pain Scale 1-3) Last Admin: 07/07/23 11:39 Dose: 650 mg Bupropion HCl (Bupropion Hcl Xl 150 Mg Tab.Er.24h) 150 mg PO DAILY [facility] Last Admin: 07/07/23 07:41 Dose: 150 mg Enoxaparin Sodium (Enoxaparin Sodium 40 Mg/0.4 Ml Syringe) 40 mg SUBCUT Q12H [facility] Last Admin: 07/07/23 07:41 Dose: 40 mg Fluticasone Propionate (Fluticasone Propionate Nasal 16 Gm [place]) 1 spray NOSTRIL-B BID [facility] Last Admin: 07/07/23 07:41 Dose: 1 spray Fluticasone/Vilanterol (Fluticasone/Vilanterol 200/25 Blst.W.Dev) 1 puff INHALE DAILY [facility] Last Admin: 07/07/23 07:52 Dose: 1 puff Vancomycin HCl 1,250 mg/ (Sodium Chloride) 250 mls @ 166.667 mls/hr IV Q12H [facility] Last Infusion: 07/07/23 09:35 Dose: Infused Pharmacy Consult (Consult Rx Vancomycin Dosing) 1 each MISCELLANE DAILY PRN PRN Reason: Consult order Sodium Chloride (0.9 % Sodium Chloride Flush 3 Ml Syringe) 3 ml IVFLUSH QSHIFT [facility] Last Admin: 07/07/23 07:41 Dose: Not Given Vitamin D (Cholecalciferol (Vitamin D3) 25 Mcg Tablet) 25 mcg PO DAILY [facility] Last Admin: 07/07/23 07:41 Dose: 25 mcg Home Medications ?Medication ?Instructions ?Recorded ?Confirmed ?Last Taken ?Type albuterol sulfate 90 mcg/actuation 2 puff inhalation QID PRN 07/03/23 07/03/23 Unknown History aerosol inhaler (Ventolin HFA) Shortness Of Breath Or Wheezing cholecalciferol (vitamin D3) 25 25 mcg PO DAILY 07/03/23 07/03/23 Unknown History mcg (1,000 unit) tablet (Vitamin D3) Physical Exam Vital Signs: Vital Signs: Last Vital Signs Temp 96.8 F 07/07/23 15:22 Pulse 70 07/07/23 15:22 Resp 18 07/07/23 15:22 BP 127/68 07/07/23 15:22 Pulse Ox 93 07/07/23 15:22 O2 Del Method Room Air 07/07/23 15:22 BMI result Body Mass Index 90.3 Const: General: cooperative, healthy appearing, comfortable and no acute distress Nutritional Appearance: obese morbidly obese Skin: Other: Patient's lower extremities are extremely large with her right side worse than the left especially at the thigh level. The posterior thigh has excessive lymphedematous tissue which is firm consistent with lymphedema and cellulitic changes. There has not much redness present now. There has not too much tenderness with palpation of this area. The left thigh is larger as well but it has not as large and the tissue was soft without the typical thickened pitting skin changes consistent with typical lymphedema skin Results Labs 07/04/23 04:25 07/07/23 05:23 Labs: Abnormal lab results 07/06/23 Range/Units 17:04 Random Vancomycin 12.6 L (15-20) mcg/mL BMP 07/07/23 05:23 Potassium 3.8 Creatinine 0.78 All other labs normal. Assessment and Plan (1) Lymphedema: Status: Acute (2) Cellulitis: Status: Acute Plan Patient is a 42-year-old female with 2 issues morbid obesity as well as lymphedema. The significant lymphedema changes of her lower extremity especially her right thigh will always put her at higher risk for cellulitis unfortunately. Her lymphedema is probably worse secondary to her obesity as well. She says that she has been rejected from having bariatric surgery secondary to not being able to lose weight specifically on her own to the extent that the surgeons have wanted. I think that this is also challenging secondary to her lymphedema of her lower extremities. At this point there is nothing surgically to do as think in his her cellulitis has responding to the IV vancomycin. I think secondary to this hospitalization which has required admittance as well as IV vancomycin that hopefully her insurance may at this point consider approving her for weight loss medication. I think it an ideal situation her taking that medication trying to lose some weight would help with the lymphedema and allow for better management through massage therapy and pump therapy. I will reach out to the tactile team and see if they can check in with her in regards to her lymphedema pumps. I do think that her diagnosis of obesity makes her lymphedema works and her lymphedema creates a worsened picture for her obesity. She will be at significant risk for cellulitis secondary to the lymphedema of her right thigh and it really be beneficial if her insurance company agrees to try her on the weight loss meds and then accelerate her approval for some bariatric surgery. In the meantime continue with antibiotics and compression. Procedures Date of Service Date of Service: 07/07/23
[2023-07-07 17:28] LABS: Vancomycin Random 12.9 mcg/mL (15-20)
--- NOTE | 2023-07-07 17:41 | HE.PHANOTE ---
RE VANCO DOSE SCR STABLE AT 0.78. TROUGH STILL LOW AT 12.9. WILL INCREASE DOSE TO 1500 MG BID TO ACHIEVE AUC 558 AND TROUGH 15.2. WILL RECHECK LEVEL 07/07 @1600 AND CONTINUE DAILY RENAL FUNCTION MONITORING.
[2023-07-07] MEDS: 0.9 % Sodium Chloride Flush 3 ML SYRINGE IVFLUSH (17:58)
[2023-07-07] MEDS: vancomycin HCL 1,500 MG in 0.9 % Sodium Chloride 500 ML 120 MG IV (17:58)
--- NOTE | 2023-07-07 18:07 | PC.NURSE ---
Patient reports sensitivity to vancomycin, dose ordered to be run at 333.33mls/hr. dose running at 120mls/hr. patient tolerating well.
[2023-07-07 20:00] VITALS: BP 132/63; PULSE 69; RESP 18; TEMP 36.2; O2SAT 95
[2023-07-08 03:40] VITALS: BP 140/72; PULSE 73; RESP 20; TEMP 36.7; O2SAT 94
[2023-07-08] MEDS: vancomycin HCL 1,500 MG in 0.9 % Sodium Chloride 500 ML 125 MG IV (06:08)
[2023-07-08 06:11] LABS: Creatinine Clr Calc Pharmacy 173.2; Estimated Glomerular Filt Rate > 60
[2023-07-08] MEDS: Fluticasone/Vilanterol 200/25 BLST.W.DEV 1 PUFF INHALE (07:13)
[2023-07-08 07:14] VITALS: PULSE 79; RESP 20; O2SAT 98
[2023-07-08 07:20] VITALS: BP 123/59; PULSE 64; RESP 16; TEMP 36.1; O2SAT 96
[2023-07-08] MEDS: Fluticasone Propionate Nasal 16 GM SPRAY 1 SPRAY NOSTRIL-B (08:05)
[2023-07-08] MEDS: Cholecalciferol (Vitamin D3) 25 MCG TABLET PO (08:05)
[2023-07-08] MEDS: buPROPion HCl XL 150 MG TAB.ER.24H PO (08:05)
[2023-07-08] MEDS: Enoxaparin Sodium 40 MG/0.4 ML SYRINGE SUBCUT (08:05)
--- NOTE | 2023-07-08 10:37 | PM.DS ---
DS: Providers Provider Date of Service: 07/08/23 Date of admission: 07/03/23 08:41 Date of discharge: 07/08/23 Primary care physician: Davey Allred MD Consults: 07/05/23 15:46 Consult to Infectious Diseases Routine Consulting Provider: [facility] Infectious Disease Reason for consultation: leg cellulitis Has provider been notified: No 07/05/23 17:57 Consult to Wound Care Routine Reason for consultation: Right leg 07/07/23 08:40 Consult to General Surgery Routine Consulting Provider: [facility] General Surgeons Reason for consultation: Cellulitis / lymphedema Has provider been notified: No Attending physician on discharge: Anil Colorado Discharging clinician: Anil Colorado DS: Diagnosis Discharge Diagnosis (1) Lymphedema: Status: Acute (2) Cellulitis: Status: Acute DS: Summary Hospital Course Hospital Course: 42 year old female with a PMH of Class 3 obesity, lymphedema of RLE, prior sepsis secondary to cellulitis of the RLE, asthma, anxiety and eczema who presents to [facility] with a 1 day history of RLE redness and swelling. The patient states that she is part of a lymphedema clinic where she has weekly visits. During the week prior to admission, there was noted erythema in the RLE (Thigh) but the pt felt it may have been her ecezema. Over the last 24 hours, the erythema worsened, she had puritis and increasingly became swollen/warm, hence she presented to the ED. She denies any fevers or chills. No trauma to the area. ED work up showed WBC of 14, otherwise labs wnl. Doppler neg for DVT. She has been given 1L IVF and IV vancomcyin and now will be admitted for further work up. Hospital course: RLE cellulitis in a patient with lymphedema- started on iv vanco and venous dupplex: No DVT demonstrated in the right lower extremity, blood cultures sent ,no leucocytosis or fevers , seen by surgery and Id -seems cellulitis improved with iv antibiotics -switched to po doxycycline 100 mg for 7 days upon discharge . morbid obesity-patient encouraged to lose weight and aware to follow up tactile team and see if they can check in with her in regards to her lymphedema pumps. plan: complete 100 mg for 7 days upon discharge . patient encouraged to lose weight and aware to follow up tactile team and see if they can check in with her in regards to her lymphedema pumps. Above management discussed with the patient in detail length she understand and in agreement with the above plan, time spent 40 minutes and 50% time spent on counseling. Time Attestation Total time managing care of this patient today: 40 mintues. Discharge Coordination Time (in mins): 40 min Quality: Safe Use of Opioids Does Pt have an Active Cancer Diagnosis on the Problem List?: No Quality: Stroke Does the patient have a stroke diagnosis?: No Physical Exam Vital Signs: Vital Signs: Last Vital Signs Temp 96.9 F 07/08/23 07:20 Pulse 64 07/08/23 07:20 Resp 16 07/08/23 07:20 BP 123/59 L 07/08/23 07:20 Pulse Ox 96 07/08/23 07:20 O2 Del Method Room Air 07/08/23 07:20 BMI result Body Mass Index 90.3 Appearance: Alert.? Oriented X3.? cvs: rrr, [id number] . res: clear to auscultation ,no rhonchii or wheezing abd: no rebound or guarding ,nt, bs present. ext pulses present , no cyanosis . RLE (thigh) erythema/edema improved ,dry ,no flacuatation . neuro: axo3 , nonfocal. DS: Data Data Completed and Pending Labs on day of discharge: Laboratory Results - last 24 hr 07/07/23 07/08/23 17:02 05:08 Hold Purple Top SEE NOTE Creatinine 0.70 Estim Creat Clear Calc 173.2 Estimated GFR > 60 Random Vancomycin 12.9 L Imaging Chest x-ray: Radiologist's impression: ITS Impressions Venous Duplex 07/03/23 06:20 IMPRESSION: No DVT demonstrated in the right lower extremity. Discharge Plan Discharge Anticipated Discharge Date/Time: 07/08/23 10:28 Patient Disposition: Home, Self-Care Discharge Diagnosis: leg cellulitis Referrals: Po,Davey Potter MD [Primary Care Provider] - 1 Week Discharge Medications: New doxycycline monohydrate 100 mg Capsule 100 mg PO Q12H Qty: 14 0RF Continued fluticasone furoate-vilanterol 200-25 mcg/dose blister with device 1 inh inhalation DAILY 90 Days Qty: 3 3RF meclizine 25 mg tablet 25 mg PO DAILY PRN (Reason: for dizziness) Qty: 14 11RF bupropion HCl [Wellbutrin SR] 100 mg tablet sustained-release 12 hr 100 mg PO BID Qty: 180 2RF betamethasone, augmented [Diprolene (augmented)] 0.05 % ointment 1 appl topical BID PRN (Reason: skin irritation) 14 Days Qty: 45 1RF albuterol sulfate [Ventolin HFA] 90 mcg/actuation HFA aerosol inhaler 2 puff inhalation QID PRN (Reason: Shortness Of Breath Or Wheezing) cholecalciferol (vitamin D3) [Vitamin D3] 25 mcg (1,000 unit) Tablet 25 mcg PO DAILY fluticasone propionate [Flonase Allergy Relief] 50 mcg/actuation spray,suspension 2 spray intranasal DAILY Qty: 16 11RF Rx Instructions: administer into each nostril Discharge Orders: Discharge Order (Routine); Ordered 07/08/23 Ordered By: Anil [place] Diet: Advance to usual diet Activity on Discharge: As tolerated Stand Alone Forms: Patient Portal Discharge page Print Language: Samoan Care Plan Goals: RLE cellulitis in a patient with lymphedema- started on iv vanco and venous dupplex: No DVT demonstrated in the right lower extremity, blood cultures sent ,no leucocytosis or fevers , seen by surgery and Id -seems cellulitis improved with iv antibiotics -switched to po doxycycline 100 mg for 7 days upon discharge . patient encouraged to lose weight and aware to follow up tactile team and see if they can check in with her in regards to her lymphedema pumps. Above management discussed with the patient in detail length she understand and in agreement with the above plan, time spent 40 minutes and 50% time spent on counseling. Health Concerns: as above. Plan of Treatment: complete 100 mg for 7 days upon discharge . patient encouraged to lose weight and aware to follow up tactile team and see if they can check in with her in regards to her lymphedema pumps. Assessment: as above.
[2023-07-08] MEDS: Doxycycline Monohydrate 100 MG CAPSULE PO (11:32)
--- NOTE | 2023-07-08 11:37 | MHC.CM.PN ---
pt dcd home self care
--- NOTE | 2023-07-08 13:28 | HO.WOUND ---
Wound Consult: Initial 42yr old?Female admitted to [facility] on 07/03/23 - See progress notes and H&P for detailed history.? Wound consult placed for Right Leg Wound and cellulitis.? Patient agreeable to assessment and photo documentation.? Patient reports the leg wound is resolving and was a blister. She attempted to show me the wound however she was standing and preferred not to lay back down since she was in process of getting ready for D/C. I was unable to see wound. She reports she does follow with Lymphedema specialist in [place] and will continue to do so for treatment. Discussed local wound care to protect from friction with in leg skin folds and to keep clean and dry. She reports understanding. She was provided with a few dressing to aid in protecting newly resurfaced tissue from friction.
== END 2023-07-08 13:02 | disposition home or self-care (01) | DRG 603 ==
LOC: HO.ED 07-03 06:36 → HO.EDOVER 07-03 08:45 → HO.S3 07-04 16:56 → HO.EDOVER 07-04 17:09 → HO.S3 07-05 07:38
PROVIDERS: Admitting Provider Family Medicine; Emergency Provider Internal Medicine; PCP Internal Medicine; Visit Provider Internal Medicine
DX: L03.115 Cellulitis of right lower limb (principal); E66.01 Morbid (severe) obesity due to excess calories; J45.20 Mild intermittent asthma, uncomplicated; L30.9 Dermatitis, unspecified; Z71.3 Dietary counseling and surveillance; I89.0 Lymphedema, not elsewhere classified; Z79.51 Long term (current) use of inhaled steroids; Z79.899 Other long term (current) drug therapy
CPT/HCPCS: 36415; 80048; 80053; 80202; 82565; 83605; 83735; 83880; 84132; 85025; 85027; 85379; 87040; 93971; 94640; 99285; J1650; J3370; J3371

== ENCOUNTER → 2023-07-03 08:41 | Outpatient (BNV) | payer MEDICARE, MEDICAID, SELFPAY | PROVIDERS: Admitting Provider Family Medicine; Emergency Provider Internal Medicine; PCP Internal Medicine; Visit Provider Internal Medicine | DX: R60.0 Localized edema (principal); L03.90 Cellulitis, unspecified | CPT/HCPCS: 99222 ==

== ENCOUNTER → 2023-07-03 08:41 | Outpatient (BNV) | payer MEDICARE, MEDICAID, SELFPAY | PROVIDERS: Admitting Provider Family Medicine; Emergency Provider Internal Medicine; PCP Internal Medicine; Visit Provider Surgery | DX: I89.0 Lymphedema, not elsewhere classified (principal); L03.90 Cellulitis, unspecified | CPT/HCPCS: 99222 ==

== ENCOUNTER → 2023-07-03 08:41 | Outpatient (BNV) | payer MEDICARE, MEDICAID, SELFPAY | PROVIDERS: Admitting Provider Family Medicine; Emergency Provider Internal Medicine; PCP Internal Medicine; Visit Provider Family Medicine | DX: I89.0 Lymphedema, not elsewhere classified (principal); L03.115 Cellulitis of right lower limb | CPT/HCPCS: 99222; 99232; 99239 ==

== ENCOUNTER 2023-07-15 16:15 | Outpatient (AMB) | payer MEDICARE, MEDICAID, SELFPAY ==
--- NOTE | 2023-07-15 16:18 | MHC.PC.OV ---
Vital Signs 07/15/23 16:19 Height 4 ft 11 in BMI Reason not done Patient refused/unable BP 144/72 H Blood Pressure Location Lt radial Position Sitting Pulse 92 Pulse Source Pulse Oximeter Pulse Oximetry (%) 96 Oxygen Delivery Method Room Air Intake Visit Reasons: TCM discharge Intake Note: Patient is here for hospital discharge follow up. Patient was discharged from [facility] on 07/08/2023 System Support Analyst Required: No Allergies bacitracin [Bacitracin] Allergy (Unknown, Verified 07/15/23 16:19) UNKNOWN budesonide [Symbicort] Allergy (Unknown, Verified 07/15/23 16:19) Unknown cephalexin [Keflex] Allergy (Unknown, Verified 07/15/23 16:19) Unknown egg yolk Allergy (Unknown, Verified 07/15/23 16:19) UNKNOWN Egg/Pro Allergy (Unknown, Verified 07/15/23 16:19) Unknown formoterol [Symbicort] Allergy (Unknown, Verified 07/15/23 16:19) Unknown Iodinated Contrast Media [IV Dye, Iodine Containing] Allergy (Unknown, Verified 07/15/23 16:19) BY SKIN TEST loratadine [From Claritin] Allergy (Unknown, Verified 07/15/23 16:19) Unknown metoclopramide [From Reglan] Allergy (Unknown, Verified 07/15/23 16:19) Unknown monosodium glutamate Allergy (Unknown, Verified 07/15/23 16:19) PER MD peanut [Peanut] Allergy (Unknown, Verified 07/15/23 16:19) UNKNOWN shellfish derived Allergy (Unknown, Verified 07/15/23 16:19) Unknown montelukast [From Singulair] Adverse Reaction (Mild, Verified 07/15/23 16:19) Anxiety Tobacco use date assessed: 07/15/23 Dental Screening Dental Screen Date: 06/12/23 HPI TCM discharge HPI Details 42-year-old morbidly obese female with a BMI of 90 GERD, asthma, hypercholesterolemia last seen in May 2023. Recently in the hospital for 17 cellulitis of the right lower extremity 1 day history of light lower extremity redness and swelling patient was part of the lymphedema clinic noted to have a WBC of 14 and was given IV fluids with IV vancomycin no DVT switch to doxycycline 100 mg twice a day TCM TCM Information Date of Discharge 07/08/23 Discharged From [facility] Medical History (Updated 07/15/23 @ 16:36 by Davey Allred MD) Lower extremity edema Cellulitis Prediabetes Mass of right thigh Lipoma of both lower extremities Cellulitis of right thigh Cellulitis Lymphedema Pressure sore on buttocks, right, unstageable Bilateral thigh pain Elevated fasting glucose Shortness of breath on exertion COVID-19 virus infection Leg wound, right Morbid obesity with BMI of 40.0-44.9, adult Swelling of thigh Foot fracture, right Eczematous dermatitis Anxiety and depression Obstructive sleep apnea Pulmonary hypertension Obesity Hypercholesterolemia Vitamin D deficiency Peripheral vascular disease Allergic rhinitis Right leg pain GERD (gastroesophageal reflux disease) Asthma Surgical History H/O right breast biopsy Family History Father Lymphoma CVD (cardiovascular disease) Mother CVD (cardiovascular disease) Hypertension Colon cancer Glaucoma Brother Leukemia Paternal Aunt Breast cancer Paternal Uncle Pancreatic cancer Other Mental health disorder Social History Household Members: None Housing: Apartment Do you presently have visiting nurse or other home services: No Alcohol intake: never Patient Tobacco Use Status: Never used Tobacco e-Cigarette/Vaping Use: Never Used Second Hand Smoke Exposure: No service: No Current occupational status: employed Cognitive needs: No Hearing needs: No Vision needs: Yes Questionnaire Thrive Questionnaire Date Thrive assessed: 04/18/23 AUDIT C Alcohol Use Questionnaire (AUDIT-C) 1. How often do you have a drink containing alcohol?: Never 3. How often do you have six or more drinks on one occasion?: Never Total Score: 0 Score Reviewed/Action Taken: No LAKESHA-7 AMB Questionnaire LAKESHA-7 Date LAKESHA - 7 assessed: 04/18/23 Source: Developed by Drs. Mateus Alston, Lillian Sousa, Bayron Richards and colleagues, with an educational padmini from [employer]. Physical exam (Primary Care) Vital Signs: Last Vital Signs Pulse 92 07/15/23 16:19 BP 144/72 H 07/15/23 16:19 Pulse Ox 96 07/15/23 16:19 Oxygen Delivery Method Room Air 07/15/23 16:19 Tobacco/Smoking Status: Tobacco use Status Tobacco use date assessed 07/15/23 07/15/23 16:19 Patient Tobacco Use Status Never used Tobacco 07/15/23 16:19 e-Cigarette/Vaping Use Never Used 07/15/23 16:19 Thrive Assessment: Date of Thrive Assessment Date Thrive assessed 04/18/23 07/15/23 16:19 Const General: alert; No acute distress Eyes Conjunctivae: conjunctivae normal Resp Auscultation: clear to auscultation bilaterally Cardio Rate: regular rate Rhythm: regular rhythm GI Inspection: Yes normal to inspection Extrem General: Yes normal to inspection and No edema Assessment and Plan Assessment & Plan (1) Cellulitis of right leg: Code(s): L03.115 - Cellulitis of right lower limb Plan: Patient was given IV vanco then transition to doxycycline (2) Morbidly obese: Code(s): E66.01 - Morbid (severe) obesity due to excess calories Plan: Patient is encouraged to lose the weight (3) Asthma: Code(s): J45.909 - Unspecified asthma, uncomplicated Plan: Continue with the inhalers as needed (4) Otitis media, left: Code(s): H66.92 - Otitis media, unspecified, left ear Orders: Referrals Lymphedema Clinic Referral I89.0 - Lymphedema, not elsewhere classified Medications: New amoxicillin-pot clavulanate 875-125 mg 1 tab PO BID 14 tabs 0RF H66.92 - Otitis media, unspecified, left ear tirzepatide 2.5 mg (0.5 mL) subcut QWEEK 4 weeks 2 mL 0RF Z68.45 - Body mass index [BMI] 70 or greater, adult Coding Level of Care Code Est Pt Level 4 (71714) Diagnoses Cellulitis of right leg L03.115 Morbidly obese E66.01 Asthma J45.909 Otitis media, left H66.92
[2023-07-15 16:19] VITALS: BP 144/72; PULSE 92; O2SAT 96
== END 2023-07-15 16:43 | disposition home or self-care (01) ==
PROVIDERS: PCP Internal Medicine; Visit Provider Internal Medicine
DX: L03.115 Cellulitis of right lower limb (principal); J45.909 Unspecified asthma, uncomplicated; H66.92 Otitis media, unspecified, left ear
CPT/HCPCS: 99214

== ENCOUNTER 2023-10-04 09:27 | Outpatient (AMB) | payer MEDICARE, MEDICAID, SELFPAY ==
[2023-10-04 09:30] VITALS: BP 130/72; PULSE 76; O2SAT 97
--- NOTE | 2023-10-04 09:30 | MHC.PC.OV ---
Vital Signs 10/04/23 09:30 Height 4 ft 11 in BMI Reason not done Patient refused/unable BP 130/72 Blood Pressure Location Lt radial Position Sitting Pulse 76 Pulse Source Pulse Oximeter Pulse Oximetry (%) 97 Oxygen Delivery Method Room Air Intake Visit Reasons: obesity Early Years Teacher Required: No Allergies bacitracin [Bacitracin] Allergy (Unknown, Verified 10/04/23 09:30) UNKNOWN budesonide [Symbicort] Allergy (Unknown, Verified 10/04/23 09:30) Unknown cephalexin [Keflex] Allergy (Unknown, Verified 10/04/23 09:30) Unknown egg yolk Allergy (Unknown, Verified 10/04/23 09:30) UNKNOWN Egg/Pro Allergy (Unknown, Verified 10/04/23 09:30) Unknown formoterol [Symbicort] Allergy (Unknown, Verified 10/04/23 09:30) Unknown Iodinated Contrast Media [IV Dye, Iodine Containing] Allergy (Unknown, Verified 10/04/23 09:30) BY SKIN TEST loratadine [From Claritin] Allergy (Unknown, Verified 10/04/23 09:30) Unknown metoclopramide [From Reglan] Allergy (Unknown, Verified 10/04/23 09:30) Unknown monosodium glutamate Allergy (Unknown, Verified 10/04/23 09:30) PER MD peanut [Peanut] Allergy (Unknown, Verified 10/04/23 09:30) UNKNOWN shellfish derived Allergy (Unknown, Verified 10/04/23 09:30) Unknown montelukast [From Singulair] Adverse Reaction (Mild, Verified 10/04/23 09:30) Anxiety Tobacco use date assessed: 07/15/23 Dental Screening Dental Screen Date: 06/12/23 HPI obesity HPI Details 43-year-old morbidly obese female with a BMI of 70 with lymphedema asthma coming in for follow-up. Last seen in June 2023 due for mammogram and due for colonoscopy. intermittent pump not covered yet ? 6 week requirment. PAtient is asking for a rx advised by PT Wedge to keep legs up [facility] Medical History (Updated 10/04/23 @ 09:41 by Davey Allred MD) Lower extremity edema Cellulitis Prediabetes Mass of right thigh Lipoma of both lower extremities Cellulitis of right thigh Cellulitis Lymphedema Pressure sore on buttocks, right, unstageable Bilateral thigh pain Elevated fasting glucose Shortness of breath on exertion COVID-19 virus infection Leg wound, right Morbid obesity with BMI of 40.0-44.9, adult Swelling of thigh Foot fracture, right Eczematous dermatitis Anxiety and depression Obstructive sleep apnea Pulmonary hypertension Obesity Hypercholesterolemia Vitamin D deficiency Peripheral vascular disease Allergic rhinitis Right leg pain GERD (gastroesophageal reflux disease) Asthma Surgical History H/O right breast biopsy Family History Father Lymphoma CVD (cardiovascular disease) Mother CVD (cardiovascular disease) Hypertension Colon cancer Glaucoma Brother Leukemia Paternal Aunt Breast cancer Paternal Uncle Pancreatic cancer Other Mental health disorder Social History Household Members: None Housing: Apartment Do you presently have visiting nurse or other home services: No Alcohol intake: never Patient Tobacco Use Status: Never used Tobacco e-Cigarette/Vaping Use: Never Used Second Hand Smoke Exposure: No service: No Current occupational status: employed Cognitive needs: No Hearing needs: No Vision needs: Yes Questionnaire Thrive Questionnaire Date Thrive assessed: 04/18/23 AUDIT C Alcohol Use Questionnaire (AUDIT-C) 1. How often do you have a drink containing alcohol?: Never 3. How often do you have six or more drinks on one occasion?: Never Total Score: 0 Score Reviewed/Action Taken: No LAKESHA-7 AMB Questionnaire LAKESHA-7 Date LAKESHA - 7 assessed: 04/18/23 Source: Developed by Drs. Mateus Alston, Lillian Sousa, Bayron Richards and colleagues, with an educational padmini from [employer]. Physical exam (Primary Care) Vital Signs: Last Vital Signs Pulse 76 10/04/23 09:30 BP 130/72 10/04/23 09:30 Pulse Ox 97 10/04/23 09:30 Oxygen Delivery Method Room Air 10/04/23 09:30 Tobacco/Smoking Status: Tobacco use Status Tobacco use date assessed 07/15/23 10/04/23 09:36 Patient Tobacco Use Status Never used Tobacco 10/04/23 09:36 e-Cigarette/Vaping Use Never Used 10/04/23 09:36 Thrive Assessment: Date of Thrive Assessment Date Thrive assessed 04/18/23 10/04/23 09:36 Const General: alert; No acute distress Eyes Conjunctivae: conjunctivae normal Resp Auscultation: clear to auscultation bilaterally Cardio Rate: regular rate Rhythm: regular rhythm GI Inspection: Yes normal to inspection Assessment and Plan Assessment & Plan (1) Body mass index [BMI] 70 or greater, adult: Code(s): Z68.45 - Body mass index [BMI] 70 or greater, adult Plan: Patient was given a prescription for Mounjaro but insurance denial. (2) Lymphedema: Code(s): I89.0 - Lymphedema, not elsewhere classified Plan: Patient is being worked up by physical therapy doing the intermittent leg compressions but has not received yet- technical requirements. need wedge (3) GERD (gastroesophageal reflux disease): Code(s): K21.9 - Gastro-esophageal reflux disease without esophagitis Plan: Avoid the foods that causes that usually spicy foods, tomato products, juices, coffee, soda and foods that your sensitive to. After eating do not lie down, allow 3-4 hours before in lie down. And keep the head of bed above 30 degrees to avoid the acid from going up. (4) Asthma: Code(s): J45.909 - Unspecified asthma, uncomplicated Plan: Continue with the inhalers.. (5) Hypercholesterolemia: Code(s): E78.00 - Pure hypercholesterolemia, unspecified Plan: Avoid fried foods, chicken skin, eggs, butter margarine, pastries and meat. Be it pork or beef they have a lot of cholesterol patient is advised to get the blood work done (6) Generalized anxiety disorder: Comment: [facility] Counseling April 2019 private counselor March 2021 Code(s): F41.1 - Generalized anxiety disorder Plan: talking once a week RADHA MALHOTRA. continue (7) Breast cancer screening by mammogram: Code(s): Z12.31 - Encounter for screening mammogram for malignant neoplasm of breast Plan: Patient reminded about mammogram (8) Colon cancer screening: Code(s): Z12.11 - Encounter for screening for malignant neoplasm of colon Plan: Patient is reminded about colonoscopy Orders: Orders MM tomosynthesis screening BI Today Z12.31 - Encounter for screening mammogram for malignant neoplasm of breast Referrals Vascular Surgery Referral I89.0 - Lymphedema, not elsewhere classified Gastroenterology Referral Z12.11 - Encounter for screening for malignant neoplasm of colon Medications: New umeclidinium 62.5 mcg/actuation (Incruse Ellipta) 1 inh inhalation BEDTIME 30 ea 3RF J45.909 - Unspecified asthma, uncomplicated [WEDGE 45 degree angle 12 inch] As directed to keep legs elevated 1 ea 0RF I89.0 - Lymphedema, not elsewhere classified Coding Level of Care Code Est Pt Level 4 (89342) Diagnoses Body mass index [BMI] 70 or greater, adult Z68.45 Lymphedema I89.0 GERD (gastroesophageal reflux disease) K21.9 Asthma J45.909 Hypercholesterolemia E78.00 Generalized anxiety disorder F41.1 Breast cancer screening by mammogram Z12.31 Colon cancer screening Z12.11
== END 2023-10-04 10:00 | disposition home or self-care (01) ==
PROVIDERS: PCP Internal Medicine; Visit Provider Internal Medicine
DX: E66.01 Morbid (severe) obesity due to excess calories (principal); Z68.45 Body mass index [BMI] 70 or greater, adult; I89.0 Lymphedema, not elsewhere classified; K21.9 Gastro-esophageal reflux disease without esophagitis; J45.909 Unspecified asthma, uncomplicated; E78.00 Pure hypercholesterolemia, unspecified; F41.1 Generalized anxiety disorder
CPT/HCPCS: 99214

== ENCOUNTER 2024-02-12 09:38 | Outpatient (AMB) | payer MEDICARE, MEDICAID, SELFPAY ==
[2024-02-12 09:43] VITALS: BP 130/72; PULSE 77; O2SAT 98; BMI 89.0
--- NOTE | 2024-02-12 09:43 | MHC.PC.OV ---
Vital Signs 02/12/24 09:43 Height 4 ft 11 in Weight 440 lb 14.792 oz BMI 89.0 BP 130/72 Blood Pressure Location Lt radial Position Sitting Pulse 77 Pulse Source Pulse Oximeter Pulse Oximetry (%) 98 Oxygen Delivery Method Room Air Intake Visit Reasons: lymphedema - see comments Allergies bacitracin [Bacitracin] Allergy (Unknown, Verified 02/12/24 09:43) UNKNOWN budesonide [Symbicort] Allergy (Unknown, Verified 02/12/24 09:43) Unknown cephalexin [Keflex] Allergy (Unknown, Verified 02/12/24 09:43) Unknown egg yolk Allergy (Unknown, Verified 02/12/24 09:43) UNKNOWN Egg/Pro Allergy (Unknown, Verified 02/12/24 09:43) Unknown formoterol [Symbicort] Allergy (Unknown, Verified 02/12/24 09:43) Unknown Iodinated Contrast Media [IV Dye, Iodine Containing] Allergy (Unknown, Verified 02/12/24 09:43) BY SKIN TEST loratadine [From Claritin] Allergy (Unknown, Verified 02/12/24 09:43) Unknown metoclopramide [From Reglan] Allergy (Unknown, Verified 02/12/24 09:43) Unknown monosodium glutamate Allergy (Unknown, Verified 02/12/24 09:43) PER MD peanut [Peanut] Allergy (Unknown, Verified 02/12/24 09:43) UNKNOWN shellfish derived Allergy (Unknown, Verified 02/12/24 09:43) Unknown montelukast [From Singulair] Adverse Reaction (Mild, Verified 02/12/24 09:43) Anxiety Medication List - Last Reconciled 02/12/24 by Davey Allred MD [Adaptive prothetics for Custom R leg: Leg Assist Custom Lobule Compression System from 11/28/23 to Life As directed] albuterol sulfate 90 mcg/actuation (Proair Digihaler) 2 inhalations inhalation Q6H betamethasone, augmented 0.05 % (Diprolene (augmented)) 1 appl topical BID PRN 14 days bupropion HCl SR (Wellbutrin SR) 100 mg PO BID cholecalciferol (vitamin D3) (Vitamin D3) 25 mcg PO DAILY clotrimazole 1% 1 appl topical BID 4 weeks fluticasone furoate-vilanterol 200-25 mcg/dose 1 inh inhalation DAILY 90 days fluticasone propionate 50 mcg/actuation (Flonase Allergy Relief) 2 sprays intranasal DAILY meclizine 25 mg PO DAILY PRN semaglutide (weight loss) 1.7 mg (0.75 mL) subcut QWEEK 1 month umeclidinium 62.5 mcg/actuation (Incruse Ellipta) 1 inh inhalation BEDTIME [WEDGE 45 degree angle 12 inch As directed to keep legs elevated] Tobacco use date assessed: 02/12/24 Dental Screening Dental Screen Date: 06/12/23 HPI lymphedema - see comments HPI Details 43-year-old morbidly obese female with lymphedema GERD asthma hypercholesterolemia generalized anxiety disorder coming in for a follow-up. Last seen in 10/05/2023. Patient was advised to get the mammogram as well as the colonoscopy. Patient is presently on semaglutide.. complains of 1 week rash neck . fell in the shower slipped [facility] Medical History (Updated 02/12/24 @ 09:54 by Davey Allred MD) Lower extremity edema Cellulitis Prediabetes Mass of right thigh Lipoma of both lower extremities Cellulitis of right thigh Cellulitis Lymphedema Pressure sore on buttocks, right, unstageable Bilateral thigh pain Elevated fasting glucose Shortness of breath on exertion COVID-19 virus infection Leg wound, right Morbid obesity with BMI of 40.0-44.9, adult Swelling of thigh Foot fracture, right Eczematous dermatitis Anxiety and depression Obstructive sleep apnea Pulmonary hypertension Obesity Hypercholesterolemia Vitamin D deficiency Peripheral vascular disease Allergic rhinitis Right leg pain GERD (gastroesophageal reflux disease) Asthma Surgical History H/O right breast biopsy Family History Father Lymphoma CVD (cardiovascular disease) Mother CVD (cardiovascular disease) Hypertension Colon cancer Glaucoma Brother Leukemia Paternal Aunt Breast cancer Paternal Uncle Pancreatic cancer Other Mental health disorder Social History Household Members: None Housing: Apartment Do you presently have visiting nurse or other home services: No Alcohol intake: never Patient Tobacco Use Status: Never used Tobacco Tobacco use type: Cigarette e-Cigarette/Vaping Use: Never Used Second Hand Smoke Exposure: No service: No Current occupational status: employed Cognitive needs: No Hearing needs: No Vision needs: Yes Questionnaire PHQ-9 Over the last 2 weeks, how often have you been bothered by any of the following problems? 1. Little interest or pleasure in doing things: more than half the days (Pt is on depression meds.) 2. Feeling down, depressed, or hopeless: more than half the days 3. Trouble falling or staying asleep, or sleeping too much: not at all 4. Feeling tired or having little energy: not at all 5. Poor appetite or overeating: not at all 6. Feeling bad about yourself - or that you are a failure or have let yourself or your family down: not at all 7. Trouble concentrating on things, such as reading the newspaper or watching television: not at all 8. Moving or speaking so slowly that other people could have noticed. Or the opposite - being so fidgety or restless that you have been moving around a lot more than usual: not at all 9. Thoughts that you would be better off or of hurting yourself in some way: not at all Total score: 4 Depression Screening Interpretation: Positive Depression Screening Done: Yes Source: Developed by Drs. Mateus Alston, Lillian Sousa, Bayron Richards and colleagues, with an educational padmini from [employer]. Thrive Questionnaire Date Thrive assessed: 04/18/23 AUDIT C Alcohol Use Questionnaire (AUDIT-C) 1. How often do you have a drink containing alcohol?: Never 3. How often do you have six or more drinks on one occasion?: Never Total Score: 0 Score Reviewed/Action Taken: No LAKESHA-7 AMB Questionnaire LAKESHA-7 Date LAKESHA - 7 assessed: 04/18/23 Source: Developed by Drs. Mateus Alston, Bayron Allen and colleagues, with an educational padmini from [employer]. Physical exam (Primary Care) Vital Signs: Last Vital Signs Pulse 77 02/12/24 09:43 BP 130/72 02/12/24 09:43 Pulse Ox 98 02/12/24 09:43 Oxygen Delivery Method Room Air 02/12/24 09:43 BMI result Body Mass Index 89.0 Tobacco/Smoking Status: Tobacco use Status Tobacco use date assessed 02/12/24 02/12/24 09:46 Patient Tobacco Use Status Never used Tobacco 02/12/24 09:46 Tobacco use type Cigarette 02/12/24 09:46 e-Cigarette/Vaping Use Never Used 02/12/24 09:46 PHQ-9: PHQ-9 Score PHQ-9: Total score 4 02/12/24 09:52 Depression Screening Interpretation: Positive Thrive Assessment: Date of Thrive Assessment Date Thrive assessed 04/18/23 02/12/24 09:46 Const General: alert; No acute distress Eyes Conjunctivae: conjunctivae normal Resp Auscultation: clear to auscultation bilaterally Cardio Rate: regular rate Rhythm: regular rhythm GI Inspection: Yes normal to inspection Extrem Other: bilateral leg 2+ General: Yes edema Coding Level of Care Code Est Pt Level 4 (79325) Diagnoses Colon cancer screening Z12.11 Breast cancer screening by mammogram Z12.31 Morbidly obese E66.01 Lymphedema I89.0 Mild intermittent asthma, unspecified whether complicated J45.20 Asthma complication type: unspecified Asthma persistence: intermittent Asthma severity: mild Gastroesophageal reflux disease without esophagitis K21.9 Esophagitis presence: without esophagitis Hypercholesterolemia E78.00 Generalized anxiety disorder F41.1 Tinea corporis B35.4 Assessment & Plan Assessment & Plan (1) Colon cancer screening: Code(s): Z12.11 - Encounter for screening for malignant neoplasm of colon Category: Medical Plan: Patient is reminded about colonoscopy (2) Breast cancer screening by mammogram: Code(s): Z12.31 - Encounter for screening mammogram for malignant neoplasm of breast Category: Medical Plan: Patient is reminded about mammogram (3) Morbidly obese: Code(s): E66.01 - Morbid (severe) obesity due to excess calories Category: Medical Plan: Continue with diet and exercise. Continue with semaglutide (4) Lymphedema: Code(s): I89.0 - Lymphedema, not elsewhere classified Category: Medical Plan: Patient continues to be in rehab. (5) Asthma: Code(s): J45.909 - Unspecified asthma, uncomplicated Category: Medical Qualifiers: Asthma complication type: unspecified Asthma persistence: intermittent Asthma severity: mild Qualified Code(s): J45.20 - Mild intermittent asthma, uncomplicated Plan: Continue with the inhalers and controller Incruse fluticasone/vilanterol. (6) GERD (gastroesophageal reflux disease): Code(s): K21.9 - Gastro-esophageal reflux disease without esophagitis Category: Medical Qualifiers: Esophagitis presence: without esophagitis Qualified Code(s): K21.9 - Gastro-esophageal reflux disease without esophagitis Plan: Avoid the foods that causes that usually spicy foods, tomato products, juices, coffee, soda and foods that your sensitive to. After eating do not lie down, allow 3-4 hours before in lie down. And keep the head of bed above 30 degrees to avoid the acid from going up. (7) Hypercholesterolemia: Code(s): E78.00 - Pure hypercholesterolemia, unspecified Category: Medical Plan: Avoid fried foods, chicken skin, eggs, butter margarine, pastries and meat. Be it pork or beef they have a lot of cholesterol LDL goal of less than 130 and triglyceride of less than 150. (8) Generalized anxiety disorder: Comment: [facility] Counseling April 2019 private counselor March 2021 Code(s): F41.1 - Generalized anxiety disorder Category: Medical Plan: Continue with counseling and therapy. (9) Tinea corporis: Code(s): B35.4 - Tinea corporis Category: Medical Plan: Antifungal prescription sent in Orders: Orders Complete Blood Count Auto Diff Today E78.00 - Pure hypercholesterolemia, unspecified Free T4 (Free Thyroxine) Today E78.00 - Pure hypercholesterolemia, unspecified UA w Microscopic Today E78.00 - Pure hypercholesterolemia, unspecified Comprehensive Met. Panel Today E78.00 - Pure hypercholesterolemia, unspecified Thyroid Stimulating Hormone Today E78.00 - Pure hypercholesterolemia, unspecified Lipid Panel Today E78.00 - Pure hypercholesterolemia, unspecified Vitamin B12 and Folate Today E78.00 - Pure hypercholesterolemia, unspecified Ferritin Today E78.00 - Pure hypercholesterolemia, unspecified IRON PROFILE Today E78.00 - Pure hypercholesterolemia, unspecified Reticulocyte Count Today E78.00 - Pure hypercholesterolemia, unspecified Medications: New clotrimazole 1% 1 appl topical BID 30 grams 0RF 4 weeks B35.4 - Tinea corporis
== END 2024-02-12 10:12 | disposition home or self-care (01) ==
PROVIDERS: PCP Internal Medicine; Visit Provider Internal Medicine
DX: J45.20 Mild intermittent asthma, uncomplicated (principal); Z12.11 Encounter for screening for malignant neoplasm of colon; E66.01 Morbid (severe) obesity due to excess calories; Z68.45 Body mass index [BMI] 70 or greater, adult; Z12.31 Encounter for screening mammogram for malignant neoplasm of breast; I89.0 Lymphedema, not elsewhere classified; K21.9 Gastro-esophageal reflux disease without esophagitis; E78.00 Pure hypercholesterolemia, unspecified; F41.1 Generalized anxiety disorder; B35.4 Tinea corporis

== ENCOUNTER → 2024-02-12 09:38 | Outpatient (BNVA) | payer MEDICARE, MEDICAID, SELFPAY | PROVIDERS: PCP Internal Medicine; Visit Provider Internal Medicine | DX: E66.01 Morbid (severe) obesity due to excess calories (principal); I89.0 Lymphedema, not elsewhere classified; J45.20 Mild intermittent asthma, uncomplicated; K21.9 Gastro-esophageal reflux disease without esophagitis; E78.00 Pure hypercholesterolemia, unspecified; F41.1 Generalized anxiety disorder; B35.4 Tinea corporis; Z71.3 Dietary counseling and surveillance | CPT/HCPCS: 96127; 99212 ==

== ENCOUNTER 2024-05-26 10:47 | Outpatient (AMB) | payer MEDICARE, MEDICAID, SELFPAY ==
[2024-05-26 10:48] VITALS: BP 126/80; PULSE 74; O2SAT 99; BMI 86.2
--- NOTE | 2024-05-26 10:48 | A.OFFPC_ITS ---
Vital Signs 05/26/24 10:48 Height 4 ft 11 in Weight 427 lb 0.566 oz BMI 86.2 BP 126/80 Blood Pressure Location Lt brachial Position Sitting Pulse 74 Pulse Source Pulse Oximeter Pulse Oximetry (%) 99 Oxygen Delivery Method Room Air Intake Visit Reasons: morbid obesity Wig Dresser Required: No Accompanied by: Self / Same As Patient Allergies bacitracin [Bacitracin] Allergy (Unknown, Verified 05/26/24 10:49) UNKNOWN budesonide [Symbicort] Allergy (Unknown, Verified 05/26/24 10:49) Unknown cephalexin [Keflex] Allergy (Unknown, Verified 05/26/24 10:49) Unknown egg yolk Allergy (Unknown, Verified 05/26/24 10:49) UNKNOWN Egg/Pro Allergy (Unknown, Verified 05/26/24 10:49) Unknown formoterol [Symbicort] Allergy (Unknown, Verified 05/26/24 10:49) Unknown Iodinated Contrast Media [IV Dye, Iodine Containing] Allergy (Unknown, Verified 05/26/24 10:49) BY SKIN TEST loratadine [From Claritin] Allergy (Unknown, Verified 05/26/24 10:49) Unknown metoclopramide [From Reglan] Allergy (Unknown, Verified 05/26/24 10:49) Unknown monosodium glutamate Allergy (Unknown, Verified 05/26/24 10:49) PER MD peanut [Peanut] Allergy (Unknown, Verified 05/26/24 10:49) UNKNOWN shellfish derived Allergy (Unknown, Verified 05/26/24 10:49) Unknown montelukast [From Singulair] Adverse Reaction (Mild, Verified 05/26/24 10:49) Anxiety Tobacco use date assessed: 05/26/24 Dental Screening Dental Screen Date: 05/26/24 Did you have a dental visit in the last 12 months?: No Did you have a dental problem in the last 6 months where you did not have access to dental care?: No Was dental information given to patient?: Patient has dentist [facility] Medical History (Updated 05/26/24 @ 11:08 by Davey Allred MD) Tinea corporis Lower extremity edema Cellulitis Prediabetes Mass of right thigh Lipoma of both lower extremities Cellulitis of right thigh Cellulitis Lymphedema Pressure sore on buttocks, right, unstageable Bilateral thigh pain Elevated fasting glucose Shortness of breath on exertion COVID-19 virus infection Leg wound, right Morbid obesity with BMI of 40.0-44.9, adult Swelling of thigh Foot fracture, right Eczematous dermatitis Anxiety and depression Obstructive sleep apnea Pulmonary hypertension Obesity Hypercholesterolemia Vitamin D deficiency Peripheral vascular disease Allergic rhinitis Right leg pain GERD (gastroesophageal reflux disease) Asthma Surgical History H/O right breast biopsy Family History Father Lymphoma CVD (cardiovascular disease) Mother CVD (cardiovascular disease) Hypertension Colon cancer Glaucoma Brother Leukemia Paternal Aunt Breast cancer Paternal Uncle Pancreatic cancer Other Mental health disorder Social History Household Members: None Housing: Apartment Do you presently have visiting nurse or other home services: No Alcohol intake: never Patient Tobacco Use Status: Never used Tobacco Tobacco use type: Cigarette e-Cigarette/Vaping Use: Never Used Second Hand Smoke Exposure: No service: No Current occupational status: employed Cognitive needs: No Hearing needs: No Vision needs: Yes Questionnaire PHQ-9 Over the last 2 weeks, how often have you been bothered by any of the following problems? 1. Little interest or pleasure in doing things: more than half the days (Pt is on depression meds.) 2. Feeling down, depressed, or hopeless: more than half the days 3. Trouble falling or staying asleep, or sleeping too much: not at all 4. Feeling tired or having little energy: not at all 5. Poor appetite or overeating: not at all 6. Feeling bad about yourself - or that you are a failure or have let yourself or your family down: not at all 7. Trouble concentrating on things, such as reading the newspaper or watching television: not at all 8. Moving or speaking so slowly that other people could have noticed. Or the opposite - being so fidgety or restless that you have been moving around a lot more than usual: not at all 9. Thoughts that you would be better off or of hurting yourself in some way: not at all Total score: 4 Depression Screening Interpretation: Positive Depression Screening Done: Yes Source: Developed by Drs. Mateus Alston, Lillian Sousa, Bayron Richards and colleagues, with an educational padmini from [employer]. Thrive Questionnaire Date Thrive assessed: 05/26/24 I am a: Patient What is your living situation today?: I have a steady place to live Within the past 12 months, did the food you bought not last and you didn't have the money to get more?: Never true Within the past 12 months, did you worry whether your food would run out before you got money to buy more?: Never true Do you have trouble paying for medicines?: No Do you have trouble getting transportation to medical appointments?: No Do you have trouble paying your heating and electricity bill?: No Do you have trouble taking care of your child, family member or friend?: No Do you have trouble with day-to-day activities such as bathing, preparing meals, shopping, managing finances, etc.?: No Are you currently unemployed and looking for a job?: No Are you interested in more education?: No Please select the resources that you would like help with: None Currently or been in a relationship where the following occur: No concerns reported THRIVE Score: 0 AUDIT C Alcohol Use Questionnaire (AUDIT-C) 1. How often do you have a drink containing alcohol?: Never 3. How often do you have six or more drinks on one occasion?: Never Total Score: 0 Score Reviewed/Action Taken: No LAKESHA-7 AMB Questionnaire LAKESHA-7 Date LAKESHA - 7 assessed: 05/26/24 Feeling nervous, anxious, or on edge: 0 = Not at all Not being able to stop or control worryin = Not at all Worrying too much about different things: 0 = Not at all Trouble relaxin = Not at all Being so restless that it is hard to sit still: 0 = Not at all Becoming easily annoyed or irritable: 0 = Not at all Feeling afraid as if something awful might happen: 0 = Not at all Total LAKESHA-7 score (0-4 normal; 5-9 mild; 10-14 moderate; 15-21 severe): 0 Source: Developed by Lillian Logan, Bayron Richards and colleagues, with an educational padmini from [employer]. Physical exam (Primary Care) Vital Signs: Last Vital Signs Pulse 74 05/26/24 10:48 BP 126/80 05/26/24 10:48 Pulse Ox 99 05/26/24 10:48 Oxygen Delivery Method Room Air 05/26/24 10:48 BMI result Body Mass Index 86.2 Tobacco/Smoking Status: Tobacco use Status Tobacco use date assessed 05/26/24 05/26/24 10:56 Patient Tobacco Use Status Never used Tobacco 05/26/24 10:56 Tobacco use type Cigarette 05/26/24 10:56 e-Cigarette/Vaping Use Never Used 05/26/24 10:56 PHQ-9: PHQ-9 Score PHQ-9: Total score 4 05/26/24 11:02 Depression Screening Interpretation: Positive Thrive Assessment: Date of Thrive Assessment Date Thrive assessed 05/26/24 05/26/24 10:56 Currently or been in a relationship where the following occur: No concerns reported Const General: alert; No acute distress Eyes Conjunctivae: conjunctivae normal Resp Auscultation: clear to auscultation bilaterally Cardio Rate: regular rate Rhythm: regular rhythm GI Inspection: Yes normal to inspection Coding Level of Care Code Est Pt Level 4 (37560) Diagnoses Body mass index [BMI] 70 or greater, adult Z68.45 Mild intermittent asthma, unspecified whether complicated J45.20 Asthma complication type: unspecified Asthma persistence: intermittent Asthma severity: mild Gastroesophageal reflux disease without esophagitis K21.9 Esophagitis presence: without esophagitis Obstructive sleep apnea G47.33 Generalized anxiety disorder F41.1 Eczematous dermatitis L30.9 Vision changes H53.9 Assessment & Plan Assessment & Plan (1) Body mass index [BMI] 70 or greater, adult: Code(s): Z68.45 - Body mass index [BMI] 70 or greater, adult Category: Medical Plan: Continue with semaglutide use. (2) Asthma: Code(s): J45.909 - Unspecified asthma, uncomplicated Category: Medical Qualifiers: Asthma complication type: unspecified Asthma persistence: intermittent Asthma severity: mild Qualified Code(s): J45.20 - Mild intermittent asthma, uncomplicated Plan: Continue with the inhalers as needed (3) GERD (gastroesophageal reflux disease): Code(s): K21.9 - Gastro-esophageal reflux disease without esophagitis Category: Medical Qualifiers: Esophagitis presence: without esophagitis Qualified Code(s): K21.9 - Gastro-esophageal reflux disease without esophagitis Plan: Avoid the foods that causes that usually spicy foods, tomato products, juices, coffee, soda and foods that your sensitive to. After eating do not lie down, allow 3-4 hours before in lie down. And keep the head of bed above 30 degrees to avoid the acid from going up. (4) Obstructive sleep apnea: Code(s): G47.33 - Obstructive sleep apnea (adult) (pediatric) Category: Medical (5) Generalized anxiety disorder: Comment: [facility] April 2019 private counselor March 2021 Code(s): F41.1 - Generalized anxiety disorder Category: Medical (6) Eczematous dermatitis: Code(s): L30.9 - Dermatitis, unspecified Category: Medical (7) Vision changes: Code(s): H53.9 - Unspecified visual disturbance Category: Medical Plan History of Present Illness The patient is a 43-year-old female presenting for follow-up regarding chronic health issues including obesity, GERD, asthma, and eczema. She reports a 13- pound weight loss with inconsistent episodes of nausea from semaglutide, with no significant adverse reactions. Her asthma is managed with various inhalers, predominantly Breo, Ventolin, and intermittent albuterol for occasional exacerbations. The patient manages GERD through unspecified adjustments and medications. She struggles with recurring eczema, primarily affecting the neck, managed through topical high-potency steroids after ineffective antifungal treatment. Recurrence follows an often cyclical pattern despite therapy. She sought administrative assistance in securing dermatological consultations and obtaining reflexive, necessary care for her mother via telehealth. Health Maintenance - Continue semaglutide for weight management - Manage asthma with inhalers as prescribed; Breo and Ventolin - Review for Dermatology referral specific to eczema management - Referral for vision examination and assessment Social History - No explicit discussion of social history factors. Review of Systems - Respiratory System: Reports occasional use of albuterol 2-3 times weekly. - Dermatological System: Reports intermittent neck rash with dryness, redness, and itchiness; responds variably to topical steroid. - Gastrointestinal System: Denies frequent nausea from semaglutide. Physical Exam Results Plan The management plan for the patient involves continuing the current semaglutide dosage, managing asthma episodes with inhalers including Breo, Ventolin, and albuterol. The treatment of eczema will persist with Diproline while arranging for a dermatological evaluation. She was instructed to pursue vision care referrals, and methods to sustain telehealth consultations for parental healthcare management were discussed. Patient was informed and verbally consented to the use of an ambient scribe for clinic note documentation during this visit. Discussion Notes I discussed with the patient the continuation of her current semaglutide regimen emphasizing its role in her weight management while noting occasional nausea. We reviewed her current asthma management plan, ensuring regularity in inhaler usage and the role of albuterol in episodic cases. As for eczema, the inefficacy with antifungals was addressed, transitioning focus to dermatology consults for optimized topical treatment. I acknowledged her vision care referral inquiry and deliberated options for accessing health services for her mother remotely. Patient Instructions - Continue taking semaglutide as prescribed. - Use asthma inhalers (Breo, Ventolin, albuterol) as directed. - Apply Diproline cream for eczema as needed. - Follow up with Dermatology for skin health. - Inquire about vision care services through insurance-listed providers. - Arrange for telehealth services for mother's follow-up care where applicable. Orders: Referrals Dermatology Referral L30.9 - Dermatitis, unspecified Ophthalmology Referral H53.9 - Unspecified visual disturbance Medications: New tacrolimus 0.1% 1 appl topical BID 100 grams 0RF L30.9 - Dermatitis, un specified
== END 2024-05-26 11:16 | disposition home or self-care (01) ==
LOC: HO.HMCH 10:48
PROVIDERS: PCP Internal Medicine; Visit Provider Internal Medicine
DX: Z68.45 Body mass index [BMI] 70 or greater, adult (principal); J45.20 Mild intermittent asthma, uncomplicated; K21.9 Gastro-esophageal reflux disease without esophagitis; G47.33 Obstructive sleep apnea (adult) (pediatric); F41.1 Generalized anxiety disorder; L30.9 Dermatitis, unspecified; H53.9 Unspecified visual disturbance

== ENCOUNTER → 2024-05-26 10:47 | Outpatient (BNVA) | payer MEDICARE, MEDICAID, SELFPAY | PROVIDERS: PCP Internal Medicine; Visit Provider Internal Medicine | DX: J45.20 Mild intermittent asthma, uncomplicated (principal); K21.9 Gastro-esophageal reflux disease without esophagitis; G47.33 Obstructive sleep apnea (adult) (pediatric); F41.1 Generalized anxiety disorder; L30.9 Dermatitis, unspecified; H53.9 Unspecified visual disturbance | CPT/HCPCS: 99212 ==

== ENCOUNTER 2024-09-03 11:46 | Outpatient (AMB) | payer MEDICARE, MEDICAID, SELFPAY ==
[2024-09-03 11:51] VITALS: BP 124/80; PULSE 103; O2SAT 93; BMI 84.5
--- NOTE | 2024-09-03 11:51 | MHC.PC.OV ---
Vital Signs 09/03/24 11:51 Height 4 ft 11 in Weight 418 lb 3.47 oz BMI 84.5 BP 124/80 Blood Pressure Location Lt brachial Position Sitting Pulse 103 H Pulse Source Pulse Oximeter Pulse Oximetry (%) 93 Oxygen Delivery Method Room Air Intake Visit Reasons: ASTHMA, eczema, Human Services Worker Required: No Accompanied by: Self / Same As Patient Allergies bacitracin (Bacitracin) Allergy (Unknown, Verified 09/03/24 11:52) UNKNOWN budesonide (Symbicort) Allergy (Unknown, Verified 09/03/24 11:52) Unknown cephalexin (Keflex) Allergy (Unknown, Verified 09/03/24 11:52) Unknown egg yolk Allergy (Unknown, Verified 09/03/24 11:52) UNKNOWN Egg/Pro Allergy (Unknown, Verified 09/03/24 11:52) Unknown formoterol (Symbicort) Allergy (Unknown, Verified 09/03/24 11:52) Unknown Iodinated Contrast Media (IV Dye, Iodine Containing) Allergy (Unknown, Verified 09/03/24 11:52) BY SKIN TEST loratadine (From Claritin) Allergy (Unknown, Verified 09/03/24 11:52) Unknown metoclopramide (From Reglan) Allergy (Unknown, Verified 09/03/24 11:52) Unknown monosodium glutamate Allergy (Unknown, Verified 09/03/24 11:52) PER MD peanut (Peanut) Allergy (Unknown, Verified 09/03/24 11:52) UNKNOWN shellfish derived Allergy (Unknown, Verified 09/03/24 11:52) Unknown montelukast (From Singulair) Adverse Reaction (Mild, Verified 09/03/24 11:52) Anxiety Tobacco use date assessed: 09/03/24 Dental Screening Dental Screen Date: 09/03/24 Did you have a dental visit in the last 12 months?: No Did you have a dental problem in the last 6 months where you did not have access to dental care?: No Was dental information given to patient?: No [facility] Medical History (Updated 09/03/24 @ 12:16 by Davey Allred MD) Tinea corporis Lower extremity edema Cellulitis Prediabetes Mass of right thigh Lipoma of both lower extremities Cellulitis of right thigh Cellulitis Lymphedema Pressure sore on buttocks, right, unstageable Bilateral thigh pain Elevated fasting glucose Shortness of breath on exertion COVID-19 virus infection Leg wound, right Morbid obesity with BMI of 40.0-44.9, adult Swelling of thigh Foot fracture, right Eczematous dermatitis Anxiety and depression Obstructive sleep apnea Pulmonary hypertension Obesity Hypercholesterolemia Vitamin D deficiency Peripheral vascular disease Allergic rhinitis Right leg pain GERD (gastroesophageal reflux disease) Asthma Surgical History H/O right breast biopsy Family History Father Lymphoma CVD (cardiovascular disease) Mother CVD (cardiovascular disease) Hypertension Colon cancer Glaucoma Brother Leukemia Paternal Aunt Breast cancer Paternal Uncle Pancreatic cancer Other Mental health disorder Social History Household Members: None Housing: Apartment Do you presently have visiting nurse or other home services: No Alcohol intake: never Patient Tobacco Use Status: Never used Tobacco Tobacco use type: Cigarette e-Cigarette/Vaping Use: Never Used Second Hand Smoke Exposure: No service: No Current occupational status: employed Cognitive needs: No Hearing needs: No Vision needs: Yes Questionnaire PHQ-9 Over the last 2 weeks, how often have you been bothered by any of the following problems? 1. Little interest or pleasure in doing things: more than half the days (Pt is on depression meds.) 2. Feeling down, depressed, or hopeless: more than half the days 3. Trouble falling or staying asleep, or sleeping too much: not at all 4. Feeling tired or having little energy: not at all 5. Poor appetite or overeating: not at all 6. Feeling bad about yourself - or that you are a failure or have let yourself or your family down: not at all 7. Trouble concentrating on things, such as reading the newspaper or watching television: not at all 8. Moving or speaking so slowly that other people could have noticed. Or the opposite - being so fidgety or restless that you have been moving around a lot more than usual: not at all 9. Thoughts that you would be better off or of hurting yourself in some way: not at all Total score: 4 Depression Screening Interpretation: Positive Depression Screening Done: Yes Source: Developed by Drs. Mateus Alston, Lillian Sousa, Bayron Richards and colleagues, with an educational padmini from [email or web address] Thrive Questionnaire Date Thrive assessed: 09/03/24 I am a: Patient What is your living situation today?: I have a steady place to live Within the past 12 months, did the food you bought not last and you didn't have the money to get more?: Never true Within the past 12 months, did you worry whether your food would run out before you got money to buy more?: Never true Do you have trouble paying for medicines?: No Do you have trouble getting transportation to medical appointments?: No Do you have trouble paying your heating and electricity bill?: No Do you have trouble taking care of your child, family member or friend?: No Do you have trouble with day-to-day activities such as bathing, preparing meals, shopping, managing finances, etc.?: No Are you currently unemployed and looking for a job?: No Are you interested in more education?: No Please select the resources that you would like help with: None Currently or been in a relationship where the following occur: No concerns reported THRIVE Score: 0 AUDIT C Alcohol Use Questionnaire (AUDIT-C) 1. How often do you have a drink containing alcohol?: Never 3. How often do you have six or more drinks on one occasion?: Never Total Score: 0 Score Reviewed/Action Taken: No LAKESHA-7 AMB Questionnaire LAKESHA-7 Date LAKESHA - 7 assessed: 09/03/24 Feeling nervous, anxious, or on edge: 0 = Not at all Not being able to stop or control worryin = Not at all Worrying too much about different things: 0 = Not at all Trouble relaxin = Not at all Being so restless that it is hard to sit still: 0 = Not at all Becoming easily annoyed or irritable: 0 = Not at all Feeling afraid as if something awful might happen: 0 = Not at all Total LAKESHA-7 score (0-4 normal; 5-9 mild; 10-14 moderate; 15-21 severe): 0 Source: Developed by Lillian Logan, Bayron Richards and colleagues, with an educational padmini from [email or web address] Physical exam (Primary Care) Vital Signs: Last Vital Signs Pulse 103 H 09/03/24 11:51 BP 124/80 09/03/24 11:51 Pulse Ox 93 09/03/24 11:51 Oxygen Delivery Method Room Air 09/03/24 11:51 BMI result Body Mass Index 84.5 Tobacco/Smoking Status: Tobacco use Status Tobacco use date assessed 09/03/24 09/03/24 11:57 Patient Tobacco Use Status Never used Tobacco 09/03/24 11:57 Tobacco use type Cigarette 09/03/24 11:57 e-Cigarette/Vaping Use Never Used 09/03/24 11:57 PHQ-9: PHQ-9 Score PHQ-9: Total score 4 09/03/24 12:12 Depression Screening Interpretation: Positive Thrive Assessment: Date of Thrive Assessment Date Thrive assessed 09/03/24 09/03/24 11:57 Currently or been in a relationship where the following occur: No concerns reported Const General: alert; No acute distress Eyes Conjunctivae: conjunctivae normal Resp Auscultation: clear to auscultation bilaterally Cardio Rate: regular rate Rhythm: regular rhythm GI Inspection: Yes normal to inspection Extrem General: Yes normal to inspection and No edema Coding Level of Care Code Est Pt Level 4 (87969) Complex EM visit Add On G2211 Diagnoses Body mass index [BMI] 70 or greater, adult Z68.45 Lymphedema I89.0 Mild intermittent asthma, unspecified whether complicated J45.20 Asthma complication type: unspecified Asthma persistence: intermittent Asthma severity: mild Breast cancer screening by mammogram Z12.31 Colon cancer screening Z12.11 Gastroesophageal reflux disease without esophagitis K21.9 Esophagitis presence: without esophagitis Generalized anxiety disorder F41.1 Cough R05.9 Assessment & Plan Assessment & Plan (1) Body mass index [BMI] 70 or greater, adult: Code(s): Z68.45 - Body mass index [BMI] 70 or greater, adult Category: Medical Plan: Patient is presently taking wegovy and has been losing weight. (2) Lymphedema: Code(s): I89.0 - Lymphedema, not elsewhere classified Category: Medical Plan: Continue to follow-up with physical therapy for the lower extremity swelling (3) Asthma: Code(s): J45.909 - Unspecified asthma, uncomplicated Category: Medical Qualifiers: Asthma complication type: unspecified Asthma persistence: intermittent Asthma severity: mild Qualified Code(s): J45.20 - Mild intermittent asthma, uncomplicated Plan: Patient on albuterol inhaler fluticasone/vilanterol controller (4) Breast cancer screening by mammogram: Code(s): Z12.31 - Encounter for screening mammogram for malignant neoplasm of breast Category: Medical Plan: Patient is reminded about mammogram (5) Colon cancer screening: Code(s): Z12.11 - Encounter for screening for malignant neoplasm of colon Category: Medical Plan: Patient is reminded about colon cancer screening (6) GERD (gastroesophageal reflux disease): Code(s): K21.9 - Gastro-esophageal reflux disease without esophagitis Category: Medical Qualifiers: Esophagitis presence: without esophagitis Qualified Code(s): K21.9 - Gastro-esophageal reflux disease without esophagitis Plan: Avoid the foods that causes that usually spicy foods, tomato products, juices, coffee, soda and foods that your sensitive to. After eating do not lie down, allow 3-4 hours before in lie down. And keep the head of bed above 30 degrees to avoid the acid from going up. (7) Generalized anxiety disorder: Comment: [facility] Counseling April 2019 private counselor March 2021 Code(s): F41.1 - Generalized anxiety disorder Category: Medical Plan: Continue with counseling and therapy (8) Cough: Code(s): R05.9 - Cough, unspecified Category: Medical Plan: discussed causes- allergy and asthma problem- will work up if persist Plan History of Present Illness The patient is a 44-year-old female presenting for a follow-up visit to manage her chronic conditions and address preventative care needs. The patient has a history of morbid obesity and is currently on Wegovy, which has resulted in a weight loss of 9 pounds since May 26, 2024. She continues to follow up with physical therapy for lymphedema, specifically for lower extremity swelling, and attends sessions at [facility]. The patient has obstructive sleep apnea and uses an albuterol inhaler and fluticasone/vilanterol as part of her management plan. She also has a history of hypercholesterolemia and generalized anxiety disorder, for which she continues to receive counseling and therapy. Preventative care measures discussed include the need for a mammogram and colonoscopy, both of which are due. Health Maintenance - Mammogram is due - Colonoscopy is due Social History Review of Systems Physical Exam Results Plan The patient will continue with [place] for weight management, given the positive outcome of a 9-pound weight loss since May 26, 2024. She is advised to maintain her physical therapy sessions for lymphedema management at [facility]. For obstructive sleep apnea, the patient will continue using her prescribed albuterol inhaler and fluticasone/vilanterol. Counseling and therapy for generalized anxiety disorder will also continue as part of her mental health management. Preventative care measures include scheduling a mammogram and colonoscopy, as both are due. Patient was informed and verbally consented to the use of an ambient scribe for clinic note documentation during this visit. Discussion Notes Patient Instructions Orders: Orders XR chest 2V Today R05.9 - Cough, unspecified Medications: Refilled Ventolin HFA 90 mcg/actuation (albuterol sulfate) 2 puffs inhalation Q6H PRN 18 grams 0RF shortness of breath or wheezing NS Discontinued albuterol sulfate 90 mcg/actuation (Proair Digihaler) Discontinued Reason: Insurance Denied 2 inhalations inhalation Q6H 1 ea 0RF J45.909 - Unspecified asthma, uncomplicated
== END 2024-09-03 12:29 | disposition home or self-care (01) ==
LOC: HO.HMCH 11:47
PROVIDERS: PCP Internal Medicine; Visit Provider Internal Medicine
DX: Z68.45 Body mass index [BMI] 70 or greater, adult (principal); I89.0 Lymphedema, not elsewhere classified; J45.20 Mild intermittent asthma, uncomplicated; Z12.31 Encounter for screening mammogram for malignant neoplasm of breast; Z12.11 Encounter for screening for malignant neoplasm of colon; K21.9 Gastro-esophageal reflux disease without esophagitis; F41.1 Generalized anxiety disorder; R05.9 Cough, unspecified

== ENCOUNTER → 2024-09-03 11:46 | Outpatient (BNVA) | payer MEDICARE, MEDICAID, SELFPAY | PROVIDERS: PCP Internal Medicine; Visit Provider Internal Medicine | DX: I89.0 Lymphedema, not elsewhere classified (principal); J45.20 Mild intermittent asthma, uncomplicated; K21.9 Gastro-esophageal reflux disease without esophagitis; F41.1 Generalized anxiety disorder; R05.9 Cough, unspecified | CPT/HCPCS: 99212 ==

== ENCOUNTER 2025-01-01 13:08 | Outpatient (AMB) | payer MEDICARE, MEDICAID, SELFPAY ==
--- NOTE | 2025-01-01 13:16 | MHC.PC.OV ---
Vital Signs 01/01/25 13:17 Height 4 ft 11 in Weight 418 lb 14.052 oz BMI 84.6 BP 140/76 H Blood Pressure Location Lt brachial Position Sitting Pulse 77 Pulse Source Pulse Oximeter Temp 97.3 F Temp Source Temporal Artery Scan Pulse Oximetry (%) 96 Oxygen Delivery Method Room Air Intake Visit Reasons: obesity Intake Note: Patient is here to follow up on Obesity. 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 Metal: Not Required per policy Accompanied by: Self / Same As Patient Allergies bacitracin (Bacitracin) Allergy (Unknown, Verified 01/01/25 13:16) UNKNOWN budesonide (Symbicort) Allergy (Unknown, Verified 01/01/25 13:16) Unknown cephalexin (Keflex) Allergy (Unknown, Verified 01/01/25 13:16) Unknown egg yolk Allergy (Unknown, Verified 01/01/25 13:16) UNKNOWN Egg/Pro Allergy (Unknown, Verified 01/01/25 13:16) Unknown formoterol (Symbicort) Allergy (Unknown, Verified 01/01/25 13:16) Unknown Iodinated Contrast Media (IV Dye, Iodine Containing) Allergy (Unknown, Verified 01/01/25 13:16) BY SKIN TEST loratadine (From Claritin) Allergy (Unknown, Verified 01/01/25 13:16) Unknown metoclopramide (From Reglan) Allergy (Unknown, Verified 01/01/25 13:16) Unknown monosodium glutamate Allergy (Unknown, Verified 01/01/25 13:16) PER MD peanut (Peanut) Allergy (Unknown, Verified 01/01/25 13:16) UNKNOWN shellfish derived Allergy (Unknown, Verified 01/01/25 13:16) Unknown montelukast (From Singulair) Adverse Reaction (Mild, Verified 01/01/25 13:16) Anxiety Tobacco use date assessed: 01/01/25 Dental Screening Dental Screen Date: 09/03/24 [facility] Medical History (Updated 09/03/24 @ 12:16 by Davey Allred MD) Tinea corporis Lower extremity edema Cellulitis Prediabetes Mass of right thigh Lipoma of both lower extremities Cellulitis of right thigh Cellulitis Lymphedema Pressure sore on buttocks, right, unstageable Bilateral thigh pain Elevated fasting glucose Shortness of breath on exertion COVID-19 virus infection Leg wound, right Morbid obesity with BMI of 40.0-44.9, adult Swelling of thigh Foot fracture, right Eczematous dermatitis Anxiety and depression Obstructive sleep apnea Pulmonary hypertension Obesity Hypercholesterolemia Vitamin D deficiency Peripheral vascular disease Allergic rhinitis Right leg pain GERD (gastroesophageal reflux disease) Asthma Surgical History H/O right breast biopsy Family History Father Lymphoma CVD (cardiovascular disease) Mother CVD (cardiovascular disease) Hypertension Colon cancer Glaucoma Brother Leukemia Paternal Aunt Breast cancer Paternal Uncle Pancreatic cancer Other Mental health disorder Social History Household Members: None Housing: Apartment Do you presently have visiting nurse or other home services: No Alcohol intake: never Patient Tobacco Use Status: Never used Tobacco Tobacco use type: Cigarette e-Cigarette/Vaping Use: Never Used Second Hand Smoke Exposure: No service: No Current occupational status: employed Cognitive needs: No Hearing needs: No Vision needs: Yes Questionnaire Thrive Questionnaire Date Thrive assessed: 12/30/24 I am a: Patient What is your living situation today?: I choose not to answer this question Within the past 12 months, did the food you bought not last and you didn't have the money to get more?: Often true Within the past 12 months, did you worry whether your food would run out before you got money to buy more?: Often true Do you have trouble paying for medicines?: No Do you have trouble getting transportation to medical appointments?: No Do you have trouble paying your heating and electricity bill?: Yes Do you have trouble taking care of your child, family member or friend?: Yes Do you have trouble with day-to-day activities such as bathing, preparing meals, shopping, managing finances, etc.?: No Are you currently unemployed and looking for a job?: Yes Are you interested in more education?: No THRIVE Score: 3 AUDIT C Alcohol Use Questionnaire (AUDIT-C) 1. How often do you have a drink containing alcohol?: Never 2. How many drinks containing alcohol do you have on a typical day when you are drinking?: 1 or 2 3. How often do you have six or more drinks on one occasion?: Never Total Score: 0 LAKESHA-7 AMB Questionnaire LAKESHA-7 Date LAKESHA - 7 assessed: 09/03/24 Source: Developed by DrsLulú Alston, Lillian Sousa, Bayron Richards and colleagues, with an educational padmini from [employer]. Physical exam (Primary Care) Vital Signs: Last Vital Signs Temp 97.3 F 01/01/25 13:17 Pulse 77 01/01/25 13:17 BP 140/76 H 01/01/25 13:17 Pulse Ox 96 01/01/25 13:17 Oxygen Delivery Method Room Air 01/01/25 13:17 BMI result Body Mass Index 84.6 Tobacco/Smoking Status: Tobacco use Status Tobacco use date assessed 01/01/25 01/01/25 13:22 Patient Tobacco Use Status Never used Tobacco 01/01/25 13:22 Tobacco use type Cigarette 01/01/25 13:22 e-Cigarette/Vaping Use Never Used 01/01/25 13:22 Thrive Assessment: Date of Thrive Assessment Date Thrive assessed 12/30/24 01/01/25 13:22 Const General: alert; No acute distress Eyes Conjunctivae: conjunctivae normal Resp Auscultation: clear to auscultation bilaterally Cardio Rate: regular rate Rhythm: regular rhythm GI Inspection: Yes normal to inspection Extrem General: Yes normal to inspection and No edema Coding Level of Care Code Est Pt Level 4 (82465) Complex EM visit Add On G2211 Diagnoses Morbidly obese E66.01 Gastroesophageal reflux disease without esophagitis K21.9 Esophagitis presence: without esophagitis Colon cancer screening Z12.11 Breast cancer screening by mammogram Z12.31 Mild intermittent asthma, unspecified whether complicated J45.20 Asthma complication type: unspecified Asthma persistence: intermittent Asthma severity: mild Generalized anxiety disorder F41.1 Assessment & Plan Assessment & Plan (1) Morbidly obese: Code(s): E66.01 - Morbid (severe) obesity due to excess calories Category: Medical Plan: Patient is being given presently Wegovy 2.4 mg once a week (2) GERD (gastroesophageal reflux disease): Code(s): K21.9 - Gastro-esophageal reflux disease without esophagitis Category: Medical Qualifiers: Esophagitis presence: without esophagitis Qualified Code(s): K21.9 - Gastro-esophageal reflux disease without esophagitis Plan: Avoid the foods that causes that usually spicy foods, tomato products, juices, coffee, soda and foods that your sensitive to. After eating do not lie down, allow 3-4 hours before in lie down. And keep the head of bed above 30 degrees to avoid the acid from going up. (3) Colon cancer screening: Code(s): Z12.11 - Encounter for screening for malignant neoplasm of colon Category: Medical Plan: Patient is reminded about colonoscopy (4) Breast cancer screening by mammogram: Code(s): Z12.31 - Encounter for screening mammogram for malignant neoplasm of breast Category: Medical Plan: Reminded about mammogram (5) Asthma: Code(s): J45.909 - Unspecified asthma, uncomplicated Category: Medical Qualifiers: Asthma complication type: unspecified Asthma persistence: intermittent Asthma severity: mild Qualified Code(s): J45.20 - Mild intermittent asthma, uncomplicated Plan: Continue with Ventolin and Incruse (6) Generalized anxiety disorder: Comment: [facility] Counseling April 2019 private counselor March 2021 Code(s): F41.1 - Generalized anxiety disorder Category: Medical Plan: Continue with counseling and therapy Plan History of Present Illness The patient is a 44-year-old female presenting for a follow-up visit. The patient has a history of morbid obesity with a BMI of 84.5, which has been a significant health concern. She is currently on Wegovy 2.4 mg once a week as part of her weight management plan. The patient has a history of asthma, which is managed with Ventolin. She reports that her breathing has been stable, although she requires a new inhaler. The patient also has gastroesophageal reflux disease (GERD), for which a reflux management plan is in place. Hypercholesterolemia is part of her medical history, with the last cholesterol test conducted in July 2021. She has obstructive sleep apnea, which is part of her chronic conditions. The patient has generalized anxiety disorder, and she has requested a prescription for Xanax due to increased anxiety related to her mother's health condition. Her last blood work in June 2023 revealed anemia with hemoglobin at 11.2 g/dL and hematocrit at 36.2%, indicating microcytic anemia. Preventative care measures include reminders for a mammogram and colonoscopy, which are due. Health Maintenance - Mammogram reminder - Colonoscopy reminder Social History - Family status: Patient is currently focused on caring for her mother, who is experiencing significant health issues. Review of Systems - Respiratory: Reports stable breathing, requires new inhaler. - Psychological: Reports increased anxiety due to mother's health condition. Physical Exam Results - Labs: Anemia with hemoglobin 11.2 g/dL and hematocrit 36.2%, microcytic anemia noted. Plan Patient was informed and verbally consented to the use of an ambient scribe for clinic note documentation during this visit. 1. Morbid Obesity The patient is currently on Wegovy 2.4 mg once a week as part of her weight management plan. 2. Asthma The patient is advised to continue using Ventolin and will be provided with a new inhaler prescription. 3. Gastroesophageal Reflux Disease (Gerd) The patient is reminded to adhere to her reflux management plan. 4. Hypercholesterolemia The patient is advised to continue monitoring her cholesterol levels, with the last test conducted in July 2021. 5. Obstructive Sleep Apnea The patient is reminded to continue managing her obstructive sleep apnea as part of her chronic conditions. 6. Generalized Anxiety Disorder The patient has requested a prescription for Xanax due to increased anxiety related to her mother's health condition. 7. Anemia The patient is advised to follow up on her anemia, with previous blood work showing microcytic anemia. 8. Preventative Care The patient is reminded to schedule a mammogram and colonoscopy as part of her preventative care measures. Discussion Notes During the visit, I discussed the importance of continuing the current management plan for morbid obesity with Wegovy and emphasized the need for regular monitoring of asthma with Ventolin. I reminded the patient about the necessity of adhering to her reflux management plan for GERD and the importance of monitoring cholesterol levels. We also discussed the need for preventative care, including scheduling a mammogram and colonoscopy. The patient expressed increased anxiety due to her mother's health, and we discussed the possibility of prescribing Xanax to help manage her symptoms. Patient Instructions - Continue Wegovy 2.4 mg once a week for weight management. - Use Ventolin as needed for asthma and obtain a new inhaler. - Follow reflux management plan for GERD. - Monitor cholesterol levels regularly. - Schedule and complete mammogram and colonoscopy. - Follow up on anemia with blood work as scheduled. - Discuss with your healthcare provider about the prescription for Xanax if anxiety persists. Orders: Referrals Gastroenterology Referral Z12.11 - Encounter for screening for malignant neoplasm of colon Medications: New alprazolam 0.25 mg PO BID PRN 20 tabs 0RF anxiety F41.1 - Generalized anxiety disorder Refilled Ventolin HFA 90 mcg/actuation (albuterol sulfate) 2 puffs inhalation Q6H PRN 18 grams 0RF shortness of breath or wheezing NS F41.1 - Generalized anxiety disorder betamethasone, augmented 0.05 % (Diprolene (augmented)) 1 appl topical BID PRN 45 grams 1RF skin irritation 14 days L89.310 - Pressure ulcer of right buttock, unstageable
[2025-01-01 13:17] VITALS: BP 140/76; PULSE 77; TEMP 36.3; O2SAT 96; BMI 84.6
--- OUTSIDE RECORDS SUMMARY | 2025-01-01 15:42 | XMS_ITS | Encounter Summary ---
Author Organization [facility] Address [address] [facility] [address] [place] [id number] Phone Care Team Providers Care Fitting Room Associate Name Role Phone Davey Allred MD Primary Care Provider [phone] Lexi Boogie MD Unavailable [phone] Encounter Details Date Type Department Care Team (Late st Contact Info) Description 10/15/2022 Telephone [facility] [address] [place] [address] Denise Quiroz OT [address] [place] [address] [email or web address] Social History Tobacco Use Types Packs/Day Years Used Date Smoking Tobacco: Never Smokeless Tobacco: Never Alcohol Use Standard Drinks/Week Comments Not Currently 0 (1 standard drink = 0.6 oz pure alcohol) few times yearly on special occasions Education Answer Date Recorded Are you interested in more education? Not on jean carlos e 07/13/2022 Are you concerned about learning? Not on file 07/13/2022 No 07/13/2022 No 07/13/2022 Digital Access Answer Date Recorded No 08/08/2022 No 08/08/2022 No 08/08/2022 Reliable internet access at home? Not on file 08/08/2022 Device with a working camera? 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 [employer] Not on file Not on fi le Not on file documented as of this encounter Plan of Treatment Not on file documented as of this encounter Visit Diagnoses Not on filedocumented in this encounter Care Teams Fitting Room Associate Relationship Specialty Start Date End Date Davey Allred MD [address] [facility] [address] [place] [id number] PCP - General Internal Medicine 09/11/21 Lexi Boogie MD [address] [facility] 2nd [place] [address] [email or web address] General Surgery 08/02/22 documented as of this encounter Additional Source Comments The information contained in this document represents components of the legal health record. It is not the complete legal health record.[facility]
--- OUTSIDE RECORDS SUMMARY | 2025-01-01 15:42 | XMS_ITS | Clinical Summary ---
Author Organization [facility] Address [address] [place] [id number] Phone Care Team Providers Care Laboratory Technologist Name Role Phone Davey Allred MD Primary Care Provider [phone] Lexi Boogie MD Unavailable [phone] Allergies Active Allergy Reactions Criticality Noted Date Comments Bacitracin 09/06/2017 Iodinated Contrast Media 10/13/2021 Cephalexin 09/06/2017 Latex 10/13/2021 Peanut 09/06/2017 Shellfish Containing Products 2017 Medications albuterol sulfate (VENTOLIN HFA INHL) Active cetirizine HCl (ZYRTEC ORAL) Active ALPRAZOLAM INTENSOL ORAL Active betamethasone, augmented, (DIPROLENE) 0.05 % ointment APPLY TOPICALLY 2 TIMES DAILY NEEDED FOR SKIN IRRITATION FOR 14 DAYS 2 Active EPINEPHrine 0.3 mg/0.3 mL auto-injector INJECT 1 AUTOINJECTOR INTO THE MUSCLE EVERY 4 HOURS NEEDED FOR ANAPHYLAXIS 2 Active BREO ELLIPTA 200-25 mcg/dose inhaler Inhale 1 puff into the lungs daily. 2 Active sertraline (ZOLOFT) 50 MG tablet Take 50 mg by mouth daily. 2 Active ibuprofen (ADVIL,MOTRIN) 200 MG tablet Take 200 mg by mouth every 6 (six) hours as needed for pain (specific location in comments). Active acetaminophen (TYLENOL) 325 mg tablet Take 650 mg by mouth every 6 (six) hours as needed for mild pain. Active cyanocobalamin, vitamin B-12, 1000 MCG tablet Take 1,000 mcg by mouth daily. Active predniSONE (DELTASONE) 10 MG tablet Take 10 mg by mouth daily with breakfast. Active cholecalciferol (VITAMIN D3) 50,000 unit capsule TAKE 1 CAPSULE BY MOUTH ONE TIME PER WEEK 12 capsule 3 Active Active Problems Problem Noted Date Diagnosed Date Morbid obesity with BMI of 70 and over, adult Assessment & Plan (02/05/2022 11:55 AM EST): This is a 41-year-old lady who is in the medical component of the weight loss program in an attempt to undergo weight loss surgery. The patient must lose 100 pounds before she can be a surgical weight loss candidate. The patient has been off and on prednisone and was recently placed on a prednisone taper and has 2 additional days left. I have cautioned the patient about the use of prednisone as frequently as her primary care physicians and the supervisor intelligence analyst are using it. We need to be careful about the use of prednisone as it does cause weight gain while we are trying to lose weight during this medical component program. The patient has gained 1 pound since she was here last time and now she needs to lose about 100 pounds before being a surgical weight loss candidate. The patient was again cautioned about following the eating plan as it was prescribed. She has a brother who owns his own fitness gym and has offered to help her by training her. That program will start the day after . I have again told the patient how important it is to follow the eating plan and that 80% of weight loss is accomplished following the eating plan. The patient was discouraged because she has gained weight the past couple of time she is coming she is now very motivated to persist within the program. I will follow-up with her again in 4 weeks and she will follow-up with dietitian in 2 weeks. We will alternate seeing the patient every 2 weeks in an effort to encourage her and to make sure she is on plan with exercise and the eating plan. She will continue current water intake. She has completed 0 out of 5 nutrition classes, 2 out of 2 behavioral health assessments, and she has completed all required testing. Patient will continue current medications as reviewed. She is not stable and is considered morbidly obese. Assessment & Plan (01/15/2022 3:00 PM EDT): This is a 41-year-old lady who is interested in laparoscopic sleeve gastrectomy. She has gained 5.4 pounds since I last saw her but is down in weight from last week seeing the dietitian. The patient has started consuming 3 meals and 1 meal replacement and does feel that she is more satisfied with those meals. She is more active and is walking for 20 minutes 4 to 5 days a week and using some of the sit and be fit exercises 2-3 times a week for 5 to 20 minutes. Patient should continue this regular physical activity. She should continue current eating plan and and water intake. She has not completed blood work and we will schedule this so that the patient can go to the hospital have all of it done at 1 time. She has completed 0 out of 5 nutrition classes, and 2 out of 2 behavioral health assessments. In an effort to help the patient stay on track I will see her every 2 weeks to help her become motivated to lose the weight. Patient has 97 pounds still to lose. I will follow-up with her again in 2 weeks timeframe. She will continue current medications as reviewed. She is not stable and is considered morbidly obese Assessment & Plan (12/22/2021 11:28 AM EDT): This is a 41-year-old lady who is interested in laparoscopic sleeve gastrectomy for weight management. Patient has lost 9.4 pounds although she has been on a prednisone taper over the past 2 weeks. She is somewhat frustrated about the lack of weight loss but understands that her weight loss has been stalled somewhat secondary to the prednisone use. She is hopeful that she will be able to stay off prednisone for a longer period of time for her asthma given the weight loss. She will continue current water intake and exercise plan as well as eating plan. We will allow her to wait a longer period of time before she does her blood work as she has a significant amount of weight loss prior to being a surgical weight loss candidate. She has 92 pounds still to lose prior to being a surgical weight loss candidate. I will follow-up with her on a more regular basis to encourage her and hopefully improve her weight loss. I will see her again in the office in 2 weeks timeframe. She is not stable is considered morbidly obese. The patient will continue current medications as reviewed. Assessment & Plan (11/24/2021 2:22 PM EDT): This is a 41-year-old lady who is interested in laparoscopic sleeve gastrectomy for weight management. The patient must be 350 pounds at the time of submission. She has an additional 102 pounds to lose prior to being a surgical weight loss candidate. The patient was encouraged to stick close to the eating plan and also to increase the intensity and frequency with which she does exercise. She will continue current water intake. She still needs to complete all of the required testing. She has completed 2 out of 2 behavioral health assessments. She has not completed any of the online classes for nutrition as of yet. Patient will continue current medications as reviewed. She is not stable is considered morbidly obese. I will follow-up with the patient again in 4 weeks timeframe. Assessment & Plan (10/13/2021 11:47 AM EDT): This is a 41-year-old lady who is planning to undergo laparoscopic sleeve gastrectomy for weight management. Patient has lost 17 pounds since her original visit a month ago. She is doing excellent with her eating plan and exercise plan. She is slowly increasing her physical activity. She is sticking to the eating plan very well and is drinking plenty of water. The patient still needs to complete all of her ordered testing. I have ordered a pulmonary consult for pulmonary clearance prior to weight loss surgery. The patient already has a gettering operator at [facility] and will schedule an appointment with them to get cardiac clearance. Patient also needs to see the behavioral health specialist and obtain clearance. She has a follow- up visit with the dietitian in 1 week. She will follow-up with me again in 4 weeks timeframe. Patient will continue current eating plan and exercise plan and water intake. She is not stable is considered morbidly obese. She has a very high perioperative risk given the patient's current weight. Assessment & Plan (09/11/2021 3:49 PM EDT): This is a 41-year-old lady with a BMI of 96 who is desperate to lose weight. The patient has tried to weight loss programs prior and has been unable to lose the amount of weight that she needs to in order to be a surgical weight loss candidate. Patient is interested in starting our program in an effort to undergo a laparoscopic sleeve gastrectomy for weight loss. We discussed sleeve gastrectomy in detail including risk benefits and alternatives. The patient was told she must lose at least 100 pounds prior to surgery. Her goal weight should be 360 to 380 pounds prior to surgery. Patient was encouraged to add formalize exercise at least 20 minutes to 30 minutes to start of [employer] videos that are sit and be fit exercises 4 times weekly. Patient will continue current water intake of at least 64 ounces of water daily. She was placed on an eating plan which will include a protein shake or bar or Uzbek yogurt or cottage cheese at 9 AM and 3 PM. Patient will consume 4 ounces of protein with a small side salad or vegetables at 12 PM and 6 PM. She may have 1/2 cup of carbohydrate at the dinnertime meal. The patient will follow up with the dietitian in 2 weeks. The patient will need to come to the office for all of her visits as she does not have a scale and cannot purchase a scale that we will accommodate her current weight. Patient already has a therapist through the [place] [facility] and will obtain her clearance with her current therapist. I have ordered blood work including chest x-ray and EKG. The patient will have these performed fasting. I will follow-up with the patient again in the office in 4 weeks timeframe. This patient is at increased risk for perioperative complications secondary to her BMI of 96 and her history of asthma. The patient will require cardiac and pulmonary clearance prior to surgery. I spent 72 minutes with this patient with greater than 50% being used for coordination of care. Preoperative examination 09/11/2021 Family History Medical History Relation Comments HIV Brother 1 Cancer Brother 2 Schizoaffective disorder Brother 4 Stomach cancer Father Cancer Maternal Grandmother Heart attack Maternal Grandmother Atrial fibrillation Mother COPD Mother Relation Status Comments Brother 1 Alive Brother 2 Brother 3 Alive Brother 4 Alive Father Maternal Grandmother Mother Alive Social History Tobacco Use Types Packs/Day Years Used Date Smoking Tobacco: Never Smokeless Tobacco: Never Tobacco Cessation:Counseling Given: Not Answered Alcohol Use Standard Drinks/Week Comments Not Currently [...] Industry 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 [employer] Not on file Not on fi le Not on file Last Filed Vital Signs Vital Sign Reading Time Taken Comments Blood Pressure 112/64 02/05/2022 11:00 AM EST Pulse 90 02/05/2022 11:00 AM EST Temperature 36.7 C (98 F) 02/05/2022 11:00 AM EST Respiratory Rate - - Oxygen Saturation 97% 02/05/2022 11:00 AM EST Inhaled Oxygen Concentration - - Weight 203.7 kg (449 lb) 02/26/2022 11:44 AM EST Height 149.9 cm (4' 11.02 ) 02/05/2022 11:00 AM EST Body Mass Index 90.64 02/05/2022 11:00 AM EST Plan of Treatment Health Maintenance Due Date Last Done Comments DEPRESSION SCREENING 1990 HEPATITIS C SCREENING 1996 HIV ONE-TIME SCREENING (18-6 5 YEARS) 1996 PAP SMEAR 08/19/1999 MAMMOGRAM 2018 COLOGUARD 08/19/2023 COLONOSCOPY 08/19/2023 COLORECTAL CANCER SCREENING 08/19/2023 FIT TEST 08/19/2023 FOBT 08/19/2023 SIGMOIDOSCOPY 08/19/2023 VIRTUAL COLONOSCOPY 08/19/2023 Adult Td,Tdap Booster 09/14/2023 09/13/2013 , 10/11/2011 INFLUENZA VACCINE (#1) 2024 9, 01/09/2018 COVID-19 VACCINE (2 - 2024-2 6 season) 2024 07/22/2021 SCREENING FOR DIABETES 01/29/2025 , 01/29/2022 LIPID PANEL 01/29/2027 01/29/2022 PNEUMOCOCCAL VACCINES (0-49 years) Aged Out 10/29/2018 No longer eligible b ased on patient's age to complete this topic SMOKING STATUS SCREENING (On ce After 26 Yrs) Completed 02/05/2022 HEPATITIS A VACCINES Aged Out No long er eligible based on patient's age to complete this topic HIB VACCINES Aged Out No longer eligi ble based on patient's age to complete this topic MENINGOCOCCAL VACCINES (ACWY) Aged Out No longer eligible based on patient's age to complete this topic MENINGOCOCCAL VACCINES (B) Aged Out N o longer eligible based on patient's age to complete this topic Medical Devices Not on file Procedures Procedure Name Priority Date/Time Associated Diagnosis Comments LIPID PANEL Routine 01/29/2022 11:29 AM EST Morbid obesity with body mass index of 70 and over in adult from Last 3 Months or Most Recently Relevant to Health Maintenance Results * (ABNORMAL) Lipid panel (01/29/2022 11:29 AM EST) HDL 47 mg/dL [facility] Comment: Interpretation <40 mg/dL: Low HDL cholesterol (major risk factor for CHD) Greater than or equal to 60 mg/dL: High HDL cholesterol ( negative risk factor for CHD) HDL - cholesterol is affected by a number of factors, e.g. smoking, excerise, hormones, sex and age. CHOLESTEROL 209 0 - 240 mg/dL [facility] TRIGLYCERIDES 91 30 - 160 mg/dL [facility] LDL 144(H) 50 - 129 mg/dL [facility] Comment: LDL levels in terms of risk for coronary heart disease: <100 mg/dL: Optimal 100-129 mg/dL: Near or above optimal 130-159 mg/dL: Borderline high 160-189 mg/dL: High >190 mg/dL: Very High CARDIAC RISK RATIO 4.4 3.3 - 4.4 C [facility] Blood 01/29/2022 11:2 9 AM EST 01/29/2022 11:33 AM EST Lexi Boogie MD LAB BLOOD ORDERABLES Final Result [facility] [address] [place] [address] from Last 3 Months or Most Recently Relevant to Health Maintenance Insurance [employer] MEDICARE PART A & B [employer] MEDICARE PART A & [facility] [place] [facility] [place] B [facility] MED[facility] PART A & B Care Teams Laboratory Technologist Relationship Specialty Start Date End Date Davey Allred MD [address] [place] [address] PCP - General Internal Medicine 09/11/21 Lexi Boogie MD [address] [place] [id number] [email or web address] General Surgery 08/02/22 Additional Source Comments The information contained in this document represents components of the legal health record. It is not the complete legal health record.[facility]
== END 2025-01-01 13:34 | disposition home or self-care (01) ==
LOC: HO.HMCH 13:09
PROVIDERS: PCP Internal Medicine; Visit Provider Internal Medicine
DX: K21.9 Gastro-esophageal reflux disease without esophagitis (principal); E66.01 Morbid (severe) obesity due to excess calories; Z68.45 Body mass index [BMI] 70 or greater, adult; Z12.11 Encounter for screening for malignant neoplasm of colon; Z12.31 Encounter for screening mammogram for malignant neoplasm of breast; J45.20 Mild intermittent asthma, uncomplicated; F41.1 Generalized anxiety disorder

== ENCOUNTER → 2025-01-01 13:08 | Outpatient (BNVA) | payer MEDICARE, MEDICAID, SELFPAY | PROVIDERS: PCP Internal Medicine; Visit Provider Internal Medicine | DX: E66.01 Morbid (severe) obesity due to excess calories (principal); K21.9 Gastro-esophageal reflux disease without esophagitis; J45.20 Mild intermittent asthma, uncomplicated; F41.1 Generalized anxiety disorder; G47.33 Obstructive sleep apnea (adult) (pediatric); D64.9 Anemia, unspecified; L89.310 Pressure ulcer of right buttock, unstageable; Z68.45 Body mass index [BMI] 70 or greater, adult | CPT/HCPCS: 99212 ==